=== PATIENT | female | born 1995 | race African-American/Black ===

== ENCOUNTER 2016-12-03 20:21 | Inpatient (IN) | payer OTHER ==
[~2016-12-03 20:21] MED LIST: ACTIVATED CHARCOAL 50 GM/240 ML BOTTLE ONE
[2016-12-03] MEDS ORDERED: ACTIVATED CHARCOAL 50 GM/240 ML BOTTLE PO STA (20:50)
[2016-12-03 21:07] LABS: Basophils % (A) 1 %; CH 30.5; CHCM 33.6; Eosinophils # (A) 0.1 k/uL (0-0.7); Eosinophils % (A) 2 %; HCT 40.9 % (34.0-46.0); HDW 2.36; HGB 13.5 gm/dL (11.4-16.0); Luc # (Auto) 0.18; Luc % (Auto) 3; Lymphocytes # (A) 2.3 k/uL (1.0-4.8); Lymphocytes % (A) 41 %; MCH 29.9 pg (25.0-35.0); MCHC 32.9 g/dL (31.0-37.0); MCV 90.8 fL (80.0-100.0); Mean Platelet Volume 6.3; Monocytes # (A) 0.5 k/uL (0-1.0); Monocytes % (A) 9 %; Neutrophils # (A) 2.6 k/uL (1.3-7.7); Neutrophils % (A) 45 %; RDW 12.7 % (11.5-15.5); WBC 5.7 k/uL (3.8-10.6); WBC (Perox) 5.35
[2016-12-03 21:14] LABS: ALT 24 U/L (9-52); AST 27 U/L (14-36); Acetaminophen <10.0 ug/mL; Alkaline Phosphatase 49 U/L (38-126); Anion Gap 13 mmol/L; Blood Urea Nitrogen 10 mg/dL (7-17); Calcium 9.4 mg/dL (8.4-10.2); Carbon Dioxide 26 mmol/L (22-30); Chloride 105 mmol/L (98-107); Glucose 98 mg/dL (74-99); Non-African American GFR(MDRD) >60 (>60 ml/min/1.73 sqM); Potassium 3.6 mmol/L (3.5-5.1); Salicylate <1.0 mg/dL; Sodium 144 mmol/L (137-145); Total Bilirubin 0.3 mg/dL (0.2-1.3); Total Protein 7.6 g/dL (6.3-8.2)
[2016-12-03 21:18] LABS: Alcohol 112 mg/dL
[2016-12-03 21:21] LABS: Appearance,Urine Clear (Clear); Bacteria,Urine Rare /hpf; Bilirubin,Urine Negative (Negative); Glucose,Urine (UA) Negative (Negative); Ketones,Urine Negative (Negative); Leukocyte Esterase,Urine Trace (Negative); Mucus,Urine Rare /hpf; Nitrite,Urine Negative (Negative); PH, Urine 6.5 (5.0-8.0); Particle Count 2428; Protein,Urine Negative (Negative); RBC,Urine 1 /hpf (0-5); Specific Gravity,Urine 1.011 (1.001-1.035); Squamous Epithelial Cell,Urine 2 /hpf (0-4); UA Billing (MACRO vs. MICRO) MICRO; Urobilinogen,Urine <2.0 mg/dL (<2.0); WBC,Urine 3 /hpf (0-5)
--- NOTE | 2016-12-03 21:27 | ED ---
Overdose HPI <Rogerio Knight - Last Filed: 12/04/16 01:46> - General Source: patient, RN notes reviewed Mode of arrival: wheelchair Limitations: no limitations <Yolande Villanueva - Last Filed: 12/04/16 02:44> - General Chief Complaint: Overdose Stated Complaint: Overdose Time Seen by Provider: 12/03/16 20:43 - History of Present Illness Initial Comments: 21-year-old female presents to the emergency department with a chief complaint of overdose. Patient states that she took Flexeril to try to kill herself. Patient does admit to suicidal ideation denies any homicidal ideation. Patient states she took this about 30 minutes prior to arrival to the emergency department. Patient states that she cannot currently having any symptoms. Patient states she is feeling somewhat sleepy. Patient does admit to a history of depression. Patient states that she is not currently having any other symptoms.Patient denies any recent fever, chills, shortness of breath, chest pain, back pain, abdominal pain, nausea vomiting, numbness or tingling, dysuria or hematuria, constipation or diarrhea, headaches or visual changes, or any other current symptoms. (Yolande Villanueva) - Related Data Home Medications Medication Instructions Recorded Confirmed Cyclobenzaprine [Flexeril] 10 mg PO DIRECTED 12/03/16 12/03/16 Mometasone Furoate [Mometasone 1 applic TOPICAL DAILY 12/03/16 12/03/16 Furoate 0.1%] Mupirocin Calcium 2% Cream 1 applic TOPICAL BID 12/03/16 12/03/16 [Bactroban 2% Cream] Allergies Allergy/AdvReac Type Severity Reaction Status Date / Time Penicillins Allergy Swelling Verified 12/03/16 20:55 red dye Allergy Hallucinati Verified 12/03/16 20:27 ons Review of Systems ROS Other: All systems not noted in ROS Statement are negative. <Rogerio Knight - Last Filed: 12/04/16 01:46> ROS Other: All systems not noted in ROS Statement are negative. <Yolande Villanueva - Last Filed: 12/04/16 02:44> ROS Statement: Those systems with pertinent positive or pertinent negative responses have been documented in the HPI. Past Medical History Past Medical History: No Reported History History of Any Multi-Drug Resistant Organisms: None Reported Past Surgical History: No Surgical Hx Reported Additional Past Anesthesia/Blood Transfusion Reaction / Comment(s): no transf. hx Past Psychological History: Anxiety, Bipolar, Depression Additional Psychological History / Comment(s): states anxiety but never on meds. Smoking Status: Current every day smoker Past Alcohol Use History: None Reported, Heavy Past Drug Use History: Marijuana Additional Drug Use History / Comment(s): last used 4 mos ago - Past Family History Father Family Medical History: No Reported History <Yolande Villanueva - Last Filed: 12/04/16 02:44> General Exam Limitations: no limitations General appearance: alert, in no apparent distress Head exam: Present: atraumatic, normocephalic, normal inspection Eye exam: Present: normal appearance, PERRL, EOMI. Absent: scleral icterus, conjunctival injection, periorbital swelling ENT exam: Present: normal exam, mucous membranes moist Neck exam: Present: normal inspection. Absent: tenderness, meningismus, lymphadenopathy Respiratory exam: Present: normal lung sounds bilaterally. Absent: respiratory distress, wheezes, rales, rhonchi, stridor Cardiovascular Exam: Present: normal rhythm, tachycardia, normal heart sounds. Absent: systolic murmur, diastolic murmur, rubs, gallop, clicks GI/Abdominal exam: Present: soft, normal bowel sounds. Absent: distended, tenderness, guarding, rebound, rigid Neurological exam: Present: alert, oriented X3, CN II-XII intact. Absent: motor sensory deficit Psychiatric exam: Present: normal affect, normal mood Skin exam: Present: warm, dry, intact, normal color. Absent: rash <Yolande Villanueva - Last Filed: 12/04/16 02:44> Medical Decision Making - Lab Data Result diagrams: 12/03/16 20:44 12/03/16 20:44 <Rogerio Knight - Last Filed: 12/04/16 01:46> - Lab Data Result diagrams: 12/03/16 20:44 12/03/16 20:44 <Yolande Villanueva - Last Filed: 12/04/16 02:44> - Medical Decision Making Patient reevaluated by myself, Dr. Knight. Positive clinical certificate completed. Patient admits to having suicidal thoughts and plan with attempt. Mental health services did see the patient who will admit. (Rogerio Knight) 21-year-old female presents to the emergency department with chief complaint of Flexeril overdose due to suicidal ideation. At this time the patient case was discussed with poison control they do inform us to give activated charcoal. They also inform us repeat EKG in 4 hours the initial EKG was discussed with him and they state that at this time the patient does appear to be stable. We did discuss that we should look for confusion sedation and agitation. We did discuss that we needed to do blood work to assess electrolytes and other possible medications overdosed on. At this time we are pending a repeat EKG in 4 hours. at this time the patient is reassessed she is alert and oriented. This time the patient is medically cleared acute medical emergency to be evaluated by psychiatry.at this time we will admit the patient for psychiatric care. (Yolande Villanueva) - Lab Data Lab Results 12/03/16 12/03/16 12/03/16 Range/Units 20:44 20:44 21:12 WBC 5.7 (3.8-10.6) k/uL RBC 4.50 (3.80-5.40) m/uL Hgb 13.5 (11.4-16.0) gm/dL Hct 40.9 (34.0-46.0) % MCV 90.8 (80.0-100.0) fL MCH 29.9 (25.0-35.0) pg MCHC 32.9 (31.0-37.0) g/dL RDW 12.7 (11.5-15.5) % Plt Count 351 (150-450) k/uL Neutrophils % 45 % Lymphocytes % 41 % Monocytes % 9 % Eosinophils % 2 % Basophils % 1 % Neutrophils # 2.6 (1.3-7.7) k/uL Lymphocytes # 2.3 (1.0-4.8) k/uL Monocytes # 0.5 (0-1.0) k/uL Eosinophils # 0.1 (0-0.7) k/uL Basophils # 0.0 (0-0.2) k/uL Sodium 144 (137-145) mmol/L Potassium 3.6 (3.5-5.1) mmol/L Chloride 105 (98-107) mmol/L Carbon Dioxide 26 (22-30) mmol/L Anion Gap 13 mmol/L BUN 10 (7-17) mg/dL Creatinine 0.70 (0.52-1.04) mg/dL Est GFR (MDRD) Af Amer >60 (>60 ml/min/1.73 sqM) Est GFR (MDRD) Non-Af >60 (>60 ml/min/1.73 sqM) Glucose 98 (74-99) mg/dL Calcium 9.4 (8.4-10.2) mg/dL Total Bilirubin 0.3 (0.2-1.3) mg/dL AST 27 (14-36) U/L ALT 24 (9-52) U/L Alkaline Phosphatase 49 (38-126) U/L Total Protein 7.6 (6.3-8.2) g/dL Albumin 4.3 (3.5-5.0) g/dL Urine Color Yellow Urine Appearance Clear (Clear) Urine pH 6.5 (5.0-8.0) Ur Specific [place] 1.011 (1.001-1.035) Urine Protein Negative (Negative) Urine Glucose (UA) Negative (Negative) Urine Ketones Negative (Negative) Urine Blood Moderate H (Negative) Urine Nitrite Negative (Negative) Urine Bilirubin Negative (Negative) Urine Urobilinogen <2.0 (<2.0) mg/dL Ur Leukocyte Esterase Trace H (Negative) Urine RBC 1 (0-5) /hpf Urine WBC 3 (0-5) /hpf Ur Squamous Epith Cells 2 (0-4) /hpf Urine Bacteria Rare H (None) /hpf Urine Mucus Rare H (None) /hpf Urine HCG, Qual (Not Detectd) Salicylates <1.0 mg/dL Urine Opiates Screen Not Detected (NotDetected) Ur Oxycodone Screen Not Detected (NotDetected) Urine Methadone Screen Not Detected (NotDetected) Ur Propoxyphene Screen Not Detected (NotDetected) Acetaminophen <10.0 ug/mL Ur Barbiturates Screen Not Detected (NotDetected) U Tricyclic Antidepress Not Detected (NotDetected) Ur Phencyclidine Scrn Not Detected (NotDetected) Ur Amphetamines Screen Not Detected (NotDetected) U Methamphetamines Scrn Not Detected (NotDetected) U Benzodiazepines Scrn Detected H (NotDetected) Urine Cocaine Screen Not Detected (NotDetected) U Marijuana (THC) Screen Detected H (NotDetected) Serum Alcohol 112 mg/dL 12/03/16 Range/Units 21:12 WBC (3.8-10.6) k/uL RBC (3.80-5.40) m/uL Hgb (11.4-16.0) gm/dL Hct (34.0-46.0) % MCV (80.0-100.0) fL MCH (25.0-35.0) pg MCHC (31.0-37.0) g/dL RDW (11.5-15.5) % Plt Count (150-450) k/uL Neutrophils % % Lymphocytes % % Monocytes % % Eosinophils % % Basophils % % Neutrophils # (1.3-7.7) k/uL Lymphocytes # (1.0-4.8) k/uL Monocytes # (0-1.0) k/uL Eosinophils # (0-0.7) k/uL Basophils # (0-0.2) k/uL Sodium (137-145) mmol/L Potassium (3.5-5.1) mmol/L Chloride (98-107) mmol/L Carbon Dioxide (22-30) mmol/L Anion Gap mmol/L BUN (7-17) mg/dL Creatinine (0.52-1.04) mg/dL Est GFR (MDRD) Af Amer (>60 ml/min/1.73 sqM) Est GFR (MDRD) Non-Af (>60 ml/min/1.73 sqM) Glucose (74-99) mg/dL Calcium (8.4-10.2) mg/dL Total Bilirubin (0.2-1.3) mg/dL AST (14-36) U/L ALT (9-52) U/L Alkaline Phosphatase (38-126) U/L Total Protein (6.3-8.2) g/dL Albumin (3.5-5.0) g/dL Urine Color Urine Appearance (Clear) Urine pH (5.0-8.0) Ur Specific [place] (1.001-1.035) Urine Protein (Negative) Urine Glucose (UA) (Negative) Urine Ketones (Negative) Urine Blood (Negative) Urine Nitrite (Negative) Urine Bilirubin (Negative) Urine Urobilinogen (<2.0) mg/dL Ur Leukocyte Esterase (Negative) Urine RBC (0-5) /hpf Urine WBC (0-5) /hpf Ur Squamous Epith Cells (0-4) /hpf Urine Bacteria (None) /hpf Urine Mucus (None) /hpf Urine HCG, Qual Not Detected (Not Detectd) Salicylates mg/dL Urine Opiates Screen (NotDetected) Ur Oxycodone Screen (NotDetected) Urine Methadone Screen (NotDetected) Ur Propoxyphene Screen (NotDetected) Acetaminophen ug/mL Ur Barbiturates Screen (NotDetected) U Tricyclic Antidepress (NotDetected) Ur Phencyclidine Scrn (NotDetected) Ur Amphetamines Screen (NotDetected) U Methamphetamines Scrn (NotDetected) U Benzodiazepines Scrn (NotDetected) Urine Cocaine Screen (NotDetected) U Marijuana (THC) Screen (NotDetected) Serum Alcohol mg/dL 12/03/16 21:26 sinus tachycardia 102 bpm, normal axis, no atopy, no S-T depressions or elevations, 12/04/16 00:40 normal sinus rhythm 84 bpm, normal axis, no atopy, no S-T depressions or elevations, (Yolande Villanueva) Disposition <Rogerio Knight - Last Filed: 12/04/16 01:46> Time of Disposition: 02:44 <Yolande Villanueva - Last Filed: 12/04/16 02:44> Clinical Impression: Suicide attempt by drug ingestion Disposition: TRANSFER TO PSYCH HOSP/UNIT Referrals: None,Stated [Primary Care Provider] - 1-2 days
[2016-12-04] MEDS ORDERED: LORazepam 1 MG TAB PO PRN (03:09)
[2016-12-04] MEDS ORDERED: MAG HYDROX/AL HYDROX/SIMETH 30 ML CUP PO PRN (03:09)
[2016-12-04] MEDS ORDERED: MAGNESIUM HYDROXIDE 2,400 MG/10 ML CUP PO PRN (03:09)
[2016-12-04] MEDS ORDERED: ACETAMINOPHEN TAB 325 MG TAB PO PRN (03:09)
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
[2016-12-04 10:52] VITALS: BMI 19.3
[2016-12-04] MEDS: SERTRALINE 50 MG TAB PO SCH (21:07)
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
--- NOTE | 2016-12-05 11:15 | CONS ---
DATE OF CONSULTATION: Chief complaint is overdose. REASON FOR CONSULTATION: Medical management of overdose, abnormal EKG and acute alcohol intoxication. HISTORY OF ILLNESS: Ms. Moses is a 21-year-old female with ( ) history, admitted to the hospital with chief complaint of overdose. Apparently patient took Flexeril to try to kill herself. Patient does admit to suicidal ideation, denied any homicidal ideation at that time. Patient does have a history of depression and possible bipolar disorder. Patient otherwise was able to vomit most of the pills in the ER and currently awake, alert, and oriented x3. No complaints of chest pain or short of breath. No nausea or vomiting, abdominal pain. Patient was also found to have T-wave inversions in the EKG in the leads V3, V4 and V5, which are normalized at this time. Patient does not have history of coronary artery disease in the past. REVIEW OF SYSTEMS: CONSTITUTIONAL: No fever. No chills. No weakness. No weight loss. RESPIRATORY: No cough or sputum production. CARDIOVASCULAR: No chest pain. No short of breath. No leg swelling. ABDOMEN: No nausea, vomiting, abdominal pain. No diarrhea. GENITOURINARY: No dysuria. GENITOURINARY: Negative. PSYCHIATRY: ( ). SKIN: Negative. MUSCULOSKELETAL: Negative. All other 14-point review of systems negative except as above. PAST MEDICAL HISTORY: None. PAST SURGICAL HISTORY: None. PSYCHOSOCIAL HISTORY: Anxiety, bipolar and depression, but no other medication. SOCIAL HISTORY: Apparently an everyday smoker; smokes about 1/2 pack to 1 pack per day. Patient does drink alcohol, sometimes on an everyday basis, history of marijuana use, last used 4 months ago. FAMILY HISTORY: Father no reported history and mother noted to have a history of hypertension, diabetes mellitus, family history of heart disease. ALLERGIES: PENICILLIN and DYE. Home medications include: 1. Flexeril. 2. Mometasone. 3. Mupirocin cream. PHYSICAL EXAMINATION: A 21-year-old female, lying in the bed. Awake, alert, oriented x3. Appears to be in no apparent distress. VITALS: Blood pressure 122/82, pulse is 138, respiration 17, temperature afebrile, pulse ox is saturating well on room air. HEENT: Atraumatic, normocephalic. Neck is supple. No JVD. CVS EXAM: S1, S2 heard. No murmurs, no gallop. Normal sinus rhythm. No leg swelling. LUNGS: Bilateral air entry is present. No wheezing. No crackles. Nonlabored breathing. Abdomen is soft, nontender, bowel sounds present. APPLICATION DEVELOPER MANAGER: Awake, alert, oriented x3. No focal deficit. EXTREMITIES: No edema. Pulses palpable bilaterally. No clubbing or cyanosis. PSYCHIATRIC: Cooperative. ( ) LABORATORY DATA: WBC 5.7, hemoglobin 13.5, platelets 351. Sodium 144, potassium 3.6, chloride 105, bicarb is 26. BUN 10, creatinine 0.7, albumin 4.3. ( ) negative for infection. UDS is positive for benzodiazepines and marijuana. Serum alcohol level is 112, ( ) not detected. EKG showed sinus tachycardia and T-wave abnormality with inversions of V3, V4 and V5. IMPRESSION: 1. Acute suicide attempt with Flexeril ingestion about 20 tablets. 2. Acute alcohol intoxication with alcohol level is 112. 3. Abnormal EKG with T-wave inversions, normalizing now. 4. Marijuana use. 5. Depression and bipolar disorder, not on any medication at home. 6. Sinus tachycardia. DISCUSSION AND PLAN: The patient will be continued on Ativan p.r.n. for agitation, anxiety and monitor for alcohol withdrawal symptoms. Continue with the antidepressants as per psychiatry recommendations. Patient had an serial EKG showed normalization of T-wave inversions. Patient does not have any complaint of chest pain. No history of coronary artery disease. No complaints of exertional short of breath or chest pain. Patient does not want any further cardiac work-up. Will continue to monitor for alcohol withdrawal symptoms. Will check TSH and ( ) and follow up closely. Further recommendations based on the clinical course.
[2016-12-05 15:26] VITALS: RESP 16
[2016-12-05 17:38] LABS: Appearance,Urine Cloudy (Clear); Bilirubin,Urine Negative (Negative); Glucose,Urine (UA) Negative (Negative); Ketones,Urine Negative (Negative); Leukocyte Esterase,Urine Large (Negative); Mucus,Urine Few /hpf; Nitrite,Urine Negative (Negative); Particle Count 8867; Protein,Urine Trace (Negative); RBC,Urine 4 /hpf (0-5); Specific Gravity,Urine 1.022 (1.001-1.035); Squamous Epithelial Cell,Urine 8 /hpf (0-4); UA Billing (MACRO vs. MICRO) MICRO; Urobilinogen,Urine <2.0 mg/dL (<2.0); WBC,Urine 15 /hpf (0-5)
[2016-12-05] MEDS: SERTRALINE 50 MG TAB PO SCH (20:53)
[2016-12-06 06:55] VITALS: TEMP 98.2
--- NOTE | 2016-12-06 09:33 | P.PN ---
Progress Note - Text Interval history: The patient is found in the library she follows me to an interview room. She states her mood is good. She continues to try to be optimistic. She reports sleep has been stable appetite stable she has been attending groups. A second urinalysis was ordered which appeared more abnormal and may indicate a urinary tract infection. She states she was treated for the same 2 weeks ago. She is endorsing no hopelessness thinking she reports having no suicidal ideation intent or plan. She did have some questions related to her Zoloft and those were addressed. Mental status exam: The patient is a thin female appearing her stated age. She is casually dressed in her own clothing hygiene grooming are good. Affect is bright she reports her mood is good. She seated calmly in the chair. She is reporting no suicidal or homicidal ideation intent or plan and she is endorsing no auditory or visual hallucinations or specific delusions. There is no evidence of psychosis there is no evidence of hypomanic or manic symptoms. Insight and judgment improving. Cognitively she remains fully oriented and grossly intact. She demonstrates no verbal or physical aggressiveness. Plan: The patient will continue on the Zoloft we will continue to monitor her for safety and encourage her participation in the milieu. We will address the abnormal urinalysis results. We will continue to monitor her for safety.
[2016-12-06] MEDS: LEVOFLOXACIN 500 MG TAB PO SCH (13:59)
[2016-12-06] MEDS: SERTRALINE 50 MG TAB PO SCH (21:00)
[2016-12-07 06:45] VITALS: BP 105/64; PULSE 73
[2016-12-07] MEDS: LEVOFLOXACIN 500 MG TAB PO SCH (09:39)
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
[2016-12-08] MEDS ORDERED: SERTRALINE 50 MG TAB PO SCH (09:00)
== END 2016-12-07 13:39 | disposition home or self-care (01) | DRG 881 ==
LOC: EC 20:21 → 3MHU 12-04 02:38
PROVIDERS: ADMIT Psychiatry & Neurology Psychiatry; ATTEND Psychiatry & Neurology Psychiatry
DX: F32.9 Major depressive disorder, single episode, unspecified (principal); F41.9 Anxiety disorder, unspecified; F10.129 Alcohol abuse with intoxication, unspecified; F12.90 Cannabis use, unspecified, uncomplicated; F17.200 Nicotine dependence, unspecified, uncomplicated; Z88.0 Allergy status to penicillin; Z91.5 Personal history of self-harm; Z56.5 Uncongenial work environment
CPT/HCPCS: 36415; 80053; 80306; 80320; 81001; 81025; 82075; 83520; 84443; 84484; 85025; 87086; 93005; 99285

== ENCOUNTER 2018-07-21 11:26 | Emergency (ER) | payer OTHER ==
--- NOTE | 2018-07-21 12:14 | ED ---
General Adult HPI - General Chief complaint: Psychiatric Symptoms Stated complaint: mental health Time Seen by Provider: 07/21/18 11:57 Source: patient, RN notes reviewed Mode of arrival: ambulatory Limitations: no limitations - History of Present Illness Initial comments: 23-year-old female presents with chief complaint of anxiety, depression, and suicidal ideation. Patient states she has been dealing with anxiety and depression for several years. She was previously prescribed Xanax which didn't improve her symptoms. She has been drinking approximately half a pint of liquor daily to self medicate. She does have suicidal ideation with plans to shoot herself. No suicide attempt. Patient is otherwise healthy. - Related Data Previous Rx's Medication Instructions Recorded ALPRAZolam [Xanax] 0.5 mg PO BID PRN #6 tablet 07/21/18 Allergies Allergy/AdvReac Type Severity Reaction Status Date / Time Penicillins Allergy Rash/Hives Verified 07/21/18 12:03 red dye Allergy Hallucinati Verified 07/21/18 12:03 ons Review of Systems ROS Statement: Those systems with pertinent positive or pertinent negative responses have been documented in the HPI. ROS Other: All systems not noted in ROS Statement are negative. Past Medical History Past Medical History: No Reported History History of Any Multi-Drug Resistant Organisms: None Reported Past Surgical History: No Surgical Hx Reported Additional Past Anesthesia/Blood Transfusion Reaction / Comment(s): no transf. hx Past Psychological History: Anxiety, Bipolar, Depression Smoking Status: Current every day smoker Past Alcohol Use History: Heavy Past Drug Use History: None Reported - Past Family History Father Family Medical History: No Reported History General Exam Limitations: no limitations General appearance: alert, in no apparent distress, appears intoxicated Head exam: Present: atraumatic, normocephalic Eye exam: Present: normal appearance, PERRL ENT exam: Present: normal exam Neck exam: Present: normal inspection. Absent: tenderness, meningismus Respiratory exam: Present: normal lung sounds bilaterally. Absent: respiratory distress, wheezes Cardiovascular Exam: Present: regular rate, normal rhythm GI/Abdominal exam: Present: soft. Absent: distended, tenderness Extremities exam: Present: normal inspection Neurological exam: Present: alert, oriented X3 Psychiatric exam: Present: depressed, anxious, suicidal ideation Skin exam: Present: warm, dry, intact. Absent: cyanosis, diaphoretic Course Vital Signs 07/21/18 11:47 Temperature 98 F Pulse Rate 118 H Respiratory 20 Rate Blood Pressure 123/86 O2 Sat by Pulse 96 Oximetry Medical Decision Making - Medical Decision Making 23-year-old female presenting with anxiety depression and suicidal ideation. Patient is observed in the emergency department awaiting clinical sobriety, she was medically cleared and evaluated by EPS. EPS does recommend discharge at this time. Patient contracts safety. She has referred with [facility]. She will be given a short supply of Xanax for both anxiety and alcohol history. Please follow up with [facility] tomorrow as scheduled. Return with worsening or changing symptoms. - Lab Data Lab Results 07/21/18 Range/Units 12:30 Urine Opiates Screen Not Detected (NotDetected) Ur Oxycodone Screen Not Detected (NotDetected) Urine Methadone Screen Not Detected (NotDetected) Ur Propoxyphene Screen Not Detected (NotDetected) Ur Barbiturates Screen Not Detected (NotDetected) U Tricyclic Antidepress Not Detected (NotDetected) Ur Phencyclidine Scrn Not Detected (NotDetected) Ur Amphetamines Screen Not Detected (NotDetected) U Methamphetamines Scrn Not Detected (NotDetected) U Benzodiazepines Scrn Detected H (NotDetected) Urine Cocaine Screen Not Detected (NotDetected) U Marijuana (THC) Screen Not Detected (NotDetected) Disposition Clinical Impression: Acute anxiety, Depression Disposition: HOME SELF-CARE Condition: Fair Instructions: Depression (ED), Anxiety (ED) Additional Instructions: Please follow up with [facility] tomorrow. Prescriptions: ALPRAZolam [Xanax] 0.5 mg PO BID PRN #6 tablet PRN Reason: Anxiety Is patient prescribed a controlled substance at d/c from ED?: No Referrals: None,Stated [Primary Care Provider] - 1-2 days Ray Alston MD [REFERRING] - 1-2 days Time of Disposition: 17:43
[2018-07-21 13:06] LABS: Amphetamine Screen,Urine Not Detected (NotDetected); Barbiturate Screen,Urine Not Detected (NotDetected); Benzodiazepines Screen,Urine Detected (NotDetected); Cocaine Screen,Urine Not Detected (NotDetected); Methadone Screen, Urine Not Detected (NotDetected); Opiate Screen,Urine Not Detected (NotDetected); Oxycodone Screen, Urine Not Detected (NotDetected); Phencyclidine Screen,Urine Not Detected (NotDetected); Tricyclic Antidepressant,Urine Not Detected (NotDetected); Urn Cannabinoid Scrn Not Detected (NotDetected)
[2018-07-21 17:51] VITALS: BP 118/80; PULSE 98; RESP 18; TEMP 98.2
== END 2018-07-21 18:03 | disposition home or self-care (01) ==
LOC: EC 11:26
DX: F41.9 Anxiety disorder, unspecified (principal); F32.9 Major depressive disorder, single episode, unspecified; F17.200 Nicotine dependence, unspecified, uncomplicated; Z88.0 Allergy status to penicillin; Z91.048 Other nonmedicinal substance allergy status
CPT/HCPCS: 80306; 82075; 99285

== ENCOUNTER 2019-02-04 22:38 | Emergency (ER) | payer OTHER ==
[2019-02-04] MEDS ORDERED: LIDOCAINE 5% PATCH TOPICAL STA (23:36)
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
[2019-02-05 00:08] LABS: Amphetamine Screen,Urine Not Detected (NotDetected); Barbiturate Screen,Urine Not Detected (NotDetected); Benzodiazepines Screen,Urine Detected (NotDetected); Cocaine Screen,Urine Not Detected (NotDetected); Methadone Screen, Urine Not Detected (NotDetected); Opiate Screen,Urine Not Detected (NotDetected); Oxycodone Screen, Urine Not Detected (NotDetected); Phencyclidine Screen,Urine Not Detected (NotDetected); Tricyclic Antidepressant,Urine Not Detected (NotDetected); Urn Cannabinoid Scrn Not Detected (NotDetected)
[2019-02-05 00:50] LABS: Basophils % (A) 0 %; Eosinophils # (A) 0.1 k/uL (0-0.7); Eosinophils % (A) 2 %; HCT 39.5 % (34.0-46.0); HGB 12.8 gm/dL (11.4-16.0); Lymphocytes % (A) 29 %; MCH 30.1 pg (25.0-35.0); MCHC 32.4 g/dL (31.0-37.0); MCV 92.9 fL (80.0-100.0); Mean Platelet Volume 6.5; Monocytes # (A) 0.5 k/uL (0-1.0); Monocytes % (A) 8 %; Neutrophils % (A) 58 %; Platelet Count 315 k/uL (150-450); RBC 4.25 m/uL (3.80-5.40); WBC 6.9 k/uL (3.8-10.6)
[2019-02-05 00:59] LABS: African American GFR (CKD) >90 (>60 ml/min/1.73 sqM); Anion Gap 11 mmol/L; Blood Urea Nitrogen 10 mg/dL (7-17); Calcium 9.7 mg/dL (8.4-10.2); Carbon Dioxide 25 mmol/L (22-30); Chloride 109 mmol/L (98-107); Glucose 108 mg/dL (74-99); Potassium 3.6 mmol/L (3.5-5.1); Sodium 145 mmol/L (137-145)
[2019-02-05 07:33] VITALS: RESP 18
[2019-02-05] MEDS ORDERED: LORazepam 1 MG TAB PO STA ×2 (07:37→15:53)
[2019-02-05 16:23] VITALS: BP 125/89; PULSE 93; TEMP 98
== END 2019-02-05 16:43 ==
LOC: EC 22:38
DX: R45.851 Suicidal ideations (principal); F41.9 Anxiety disorder, unspecified; R07.89 Other chest pain; F31.9 Bipolar disorder, unspecified; F17.200 Nicotine dependence, unspecified, uncomplicated; Z79.899 Other long term (current) drug therapy; Z88.0 Allergy status to penicillin; Z91.09 Other allergy status, other than to drugs and biological substances; Z53.29 Procedure and treatment not carried out because of patient's decision for other reasons
CPT/HCPCS: 36415; 80048; 80306; 81025; 82075; 84484; 85025; 93005; 99285

== ENCOUNTER 2019-03-28 20:07 | Emergency (ER) | payer OTHER ==
[2019-03-28 21:48] LABS: Amphetamine Screen,Urine Not Detected (NotDetected); Barbiturate Screen,Urine Not Detected (NotDetected); Benzodiazepines Screen,Urine Detected (NotDetected); Cocaine Screen,Urine Not Detected (NotDetected); Methadone Screen, Urine Not Detected (NotDetected); Opiate Screen,Urine Not Detected (NotDetected); Oxycodone Screen, Urine Not Detected (NotDetected); Phencyclidine Screen,Urine Not Detected (NotDetected); Tricyclic Antidepressant,Urine Not Detected (NotDetected); Urn Cannabinoid Scrn Not Detected (NotDetected)
--- NOTE | 2019-03-29 02:39 | ED ---
Psych HPI - General Chief Complaint: Psychiatric Symptoms Stated Complaint: Mental Health Time Seen by Provider: 03/28/19 21:01 Source: patient Mode of arrival: ambulatory - History of Present Illness Initial Comments: This 23-year-old woman with history of mood disorder and previous suicidal ideation. She presents with the complaint that she feels she needs to be admitted in the hospital because her mood has worsened over the past 2 weeks and now she is having persistent thoughts of harming herself. The patient states she has not acted on this yet but she is concerned she may. Currently states that she is not receiving any outpatient treatment for mood disorders. MD Complaint: suicidal ideation, feels depressed Onset/Timin -: week(s) Associated Psychiatric Symptoms: depression, suicidal ideation History of same: Yes Quality: getting worse Improves With: none Worsens With: none Associated Symptoms: denies other symptoms - Related Data Home Medications Medication Instructions Recorded Confirmed No Known Home Medications 03/28/19 03/28/19 Allergies Allergy/AdvReac Type Severity Reaction Status Date / Time Penicillins Allergy Rash/Hives Verified 03/28/19 21:18 red dye Allergy Hallucinati Verified 03/28/19 21:18 ons Review of Systems ROS Statement: Those systems with pertinent positive or pertinent negative responses have been documented in the HPI. ROS Other: All systems not noted in ROS Statement are negative. Constitutional: Denies: fever Respiratory: Denies: cough, dyspnea Cardiovascular: Denies: chest pain, palpitations Gastrointestinal: Denies: abdominal pain, vomiting, diarrhea Genitourinary: Denies: dysuria, hematuria, abnormal menses Musculoskeletal: Denies: back pain Skin: Denies: rash Neurological: Denies: headache, weakness, numbness Past Medical History Past Medical History: No Reported History History of Any Multi-Drug Resistant Organisms: None Reported Past Surgical History: No Surgical Hx Reported Additional Past Anesthesia/Blood Transfusion Reaction / Comment(s): no transf. hx Past Psychological History: Anxiety, Bipolar, Depression Smoking Status: Current every day smoker Past Alcohol Use History: Heavy Past Drug Use History: None Reported - Past Family History Father Family Medical History: No Reported History General Exam Limitations: no limitations General appearance: alert, in no apparent distress Head exam: Present: atraumatic, normocephalic Eye exam: Present: normal appearance Respiratory exam: Present: normal lung sounds bilaterally. Absent: respiratory distress, wheezes, rales, rhonchi, stridor Cardiovascular Exam: Present: regular rate, normal rhythm, normal heart sounds. Absent: systolic murmur, diastolic murmur, rubs, gallop GI/Abdominal exam: Present: soft. Absent: distended, tenderness, guarding, rebound, mass Extremities exam: Present: normal inspection, normal capillary refill. Absent: pedal edema, calf tenderness Back exam: Present: normal inspection. Absent: CVA tenderness (R), CVA tenderness (L) Neurological exam: Present: alert Psychiatric exam: Present: depressed, flat affect, suicidal ideation. Absent: agitated, anxious, manic, homicidal ideation Skin exam: Present: warm, dry, intact, normal color. Absent: rash Course Vital Signs 03/28/19 03/28/19 03/29/19 20:16 22:20 07:13 Temperature 98.5 F 98.9 F Pulse Rate 122 H 100 76 Respiratory 20 18 18 Rate Blood Pressure 119/86 118/72 123/70 O2 Sat by Pulse 99 98 99 Oximetry 03/29/19 09:40 Temperature 97.8 F Pulse Rate 90 Respiratory 16 Rate Blood Pressure 117/93 O2 Sat by Pulse 98 Oximetry Medical Decision Making - Lab Data Result diagrams: 03/29/19 05:15 03/29/19 05:15 Lab Results 03/28/19 03/28/19 03/28/19 Range/Units 21:10 21:10 21:10 WBC (3.8-10.6) k/uL RBC (3.80-5.40) m/uL Hgb (11.4-16.0) gm/dL Hct (34.0-46.0) % MCV (80.0-100.0) fL MCH (25.0-35.0) pg MCHC (31.0-37.0) g/dL RDW (11.5-15.5) % Plt Count (150-450) k/uL Neutrophils % % Lymphocytes % % Monocytes % % Eosinophils % % Basophils % % Neutrophils # (1.3-7.7) k/uL Lymphocytes # (1.0-4.8) k/uL Monocytes # (0-1.0) k/uL Eosinophils # (0-0.7) k/uL Basophils # (0-0.2) k/uL Sodium (137-145) mmol/L Potassium (3.5-5.1) mmol/L Chloride (98-107) mmol/L Carbon Dioxide (22-30) mmol/L Anion Gap mmol/L BUN (7-17) mg/dL Creatinine (0.52-1.04) mg/dL Est GFR (CKD-EPI)AfAm (>60 ml/min/1.73 sqM) Est GFR (CKD-EPI)NonAf (>60 ml/min/1.73 sqM) Glucose (74-99) mg/dL Calcium (8.4-10.2) mg/dL Total Bilirubin (0.2-1.3) mg/dL AST (14-36) U/L ALT (9-52) U/L Alkaline Phosphatase (38-126) U/L Total Protein (6.3-8.2) g/dL Albumin (3.5-5.0) g/dL Urine Color Yellow Urine Appearance Cloudy H (Clear) Urine pH 7.5 (5.0-8.0) Ur Specific [place] 1.028 (1.001-1.035) Urine Protein 1+ H (Negative) Urine Glucose (UA) Negative (Negative) Urine Ketones Trace H (Negative) Urine Blood Negative (Negative) Urine Nitrite Negative (Negative) Urine Bilirubin Negative (Negative) Urine Urobilinogen <2.0 (<2.0) mg/dL Ur Leukocyte Esterase Moderate H (Negative) Urine RBC 2 (0-5) /hpf Urine WBC 23 H (0-5) /hpf Ur Squamous Epith Cells 41 H (0-4) /hpf Urine Bacteria Rare H (None) /hpf Urine Mucus Few H (None) /hpf Urine HCG, Qual Not Detected (Not Detectd) Urine Opiates Screen Not Detected (NotDetected) Ur Oxycodone Screen Not Detected (NotDetected) Urine Methadone Screen Not Detected (NotDetected) Ur Propoxyphene Screen Not Detected (NotDetected) Ur Barbiturates Screen Not Detected (NotDetected) U Tricyclic Antidepress Not Detected (NotDetected) Ur Phencyclidine Scrn Not Detected (NotDetected) Ur Amphetamines Screen Not Detected (NotDetected) U Methamphetamines Scrn Not Detected (NotDetected) U Benzodiazepines Scrn Detected H (NotDetected) Urine Cocaine Screen Not Detected (NotDetected) U Marijuana (THC) Screen Not Detected (NotDetected) 03/29/19 03/29/19 Range/Units 05:15 05:15 WBC 7.3 (3.8-10.6) k/uL RBC 4.23 (3.80-5.40) m/uL Hgb 12.8 (11.4-16.0) gm/dL Hct 38.3 (34.0-46.0) % MCV 90.5 (80.0-100.0) fL MCH 30.2 (25.0-35.0) pg MCHC 33.4 (31.0-37.0) g/dL RDW 12.9 (11.5-15.5) % Plt Count 328 (150-450) k/uL Neutrophils % 64 % Lymphocytes % 24 % Monocytes % 9 % Eosinophils % 1 % Basophils % 1 % Neutrophils # 4.6 (1.3-7.7) k/uL Lymphocytes # 1.7 (1.0-4.8) k/uL Monocytes # 0.7 (0-1.0) k/uL Eosinophils # 0.1 (0-0.7) k/uL Basophils # 0.1 (0-0.2) k/uL Sodium 138 (137-145) mmol/L Potassium 4.0 (3.5-5.1) mmol/L Chloride 103 (98-107) mmol/L Carbon Dioxide 24 (22-30) mmol/L Anion Gap 11 mmol/L BUN 10 (7-17) mg/dL Creatinine 0.51 L (0.52-1.04) mg/dL Est GFR (CKD-EPI)AfAm >90 (>60 ml/min/1.73 sqM) Est GFR (CKD-EPI)NonAf >90 (>60 ml/min/1.73 sqM) Glucose 81 (74-99) mg/dL Calcium 9.3 (8.4-10.2) mg/dL Total Bilirubin 0.4 (0.2-1.3) mg/dL AST 31 (14-36) U/L ALT 22 (9-52) U/L Alkaline Phosphatase 59 (38-126) U/L Total Protein 7.5 (6.3-8.2) g/dL Albumin 4.4 (3.5-5.0) g/dL Urine Color Urine Appearance (Clear) Urine pH (5.0-8.0) Ur Specific [place] (1.001-1.035) Urine Protein (Negative) Urine Glucose (UA) (Negative) Urine Ketones (Negative) Urine Blood (Negative) Urine Nitrite (Negative) Urine Bilirubin (Negative) Urine Urobilinogen (<2.0) mg/dL Ur Leukocyte Esterase (Negative) Urine RBC (0-5) /hpf Urine WBC (0-5) /hpf Ur Squamous Epith Cells (0-4) /hpf Urine Bacteria (None) /hpf Urine Mucus (None) /hpf Urine HCG, Qual (Not Detectd) Urine Opiates Screen (NotDetected) Ur Oxycodone Screen (NotDetected) Urine Methadone Screen (NotDetected) Ur Propoxyphene Screen (NotDetected) Ur Barbiturates Screen (NotDetected) U Tricyclic Antidepress (NotDetected) Ur Phencyclidine Scrn (NotDetected) Ur Amphetamines Screen (NotDetected) U Methamphetamines Scrn (NotDetected) U Benzodiazepines Scrn (NotDetected) Urine Cocaine Screen (NotDetected) U Marijuana (THC) Screen (NotDetected) Disposition Clinical Impression: Mood disorder Disposition: TRANSFER TO PSYCH HOSP/UNIT Condition: Fair Is patient prescribed a controlled substance at d/c from ED?: No Referrals: None,Stated [Primary Care Provider] - 1-2 days
[2019-03-29] MEDS ORDERED: LORazepam 1 MG TAB PO STA ×2 (03:01→08:45)
[2019-03-29] MEDS ORDERED: LORazepam 2 MG/ML INJ IM STA (03:02)
[2019-03-29 05:21] LABS: Appearance,Urine Cloudy (Clear); Bacteria,Urine Rare /hpf; Bilirubin,Urine Negative (Negative); Blood,Urine Negative (Negative); Color,Urine Yellow; Glucose,Urine (UA) Negative (Negative); Ketones,Urine Trace (Negative); Leukocyte Esterase,Urine Moderate (Negative); Mucus,Urine Few /hpf; Nitrite,Urine Negative (Negative); PH, Urine 7.5 (5.0-8.0); Protein,Urine 1+ (Negative); RBC,Urine 2 /hpf (0-5); Specific Gravity,Urine 1.028 (1.001-1.035); Squamous Epithelial Cell,Urine 41 /hpf (0-4); Urobilinogen,Urine <2.0 mg/dL (<2.0); WBC,Urine 23 /hpf (0-5)
[2019-03-29 05:33] LABS: Basophils # (A) 0.1 k/uL (0-0.2); Basophils % (A) 1 %; Eosinophils # (A) 0.1 k/uL (0-0.7); Eosinophils % (A) 1 %; HCT 38.3 % (34.0-46.0); HGB 12.8 gm/dL (11.4-16.0); Lymphocytes # (A) 1.7 k/uL (1.0-4.8); Lymphocytes % (A) 24 %; MCH 30.2 pg (25.0-35.0); MCHC 33.4 g/dL (31.0-37.0); MCV 90.5 fL (80.0-100.0); Mean Platelet Volume 6.4; Monocytes # (A) 0.7 k/uL (0-1.0); Monocytes % (A) 9 %; Neutrophils # (A) 4.6 k/uL (1.3-7.7); Neutrophils % (A) 64 %; Platelet Count 328 k/uL (150-450); RBC 4.23 m/uL (3.80-5.40); RDW 12.9 % (11.5-15.5); WBC 7.3 k/uL (3.8-10.6)
[2019-03-29 05:43] LABS: ALT 22 U/L (9-52); AST 31 U/L (14-36); African American GFR (CKD) >90 (>60 ml/min/1.73 sqM); Albumin 4.4 g/dL (3.5-5.0); Alkaline Phosphatase 59 U/L (38-126); Anion Gap 11 mmol/L; Blood Urea Nitrogen 10 mg/dL (7-17); Calcium 9.3 mg/dL (8.4-10.2); Carbon Dioxide 24 mmol/L (22-30); Chloride 103 mmol/L (98-107); Glucose 81 mg/dL (74-99); Sodium 138 mmol/L (137-145); Total Bilirubin 0.4 mg/dL (0.2-1.3); Total Protein 7.5 g/dL (6.3-8.2)
[2019-03-29 09:47] VITALS: BP 117/93; PULSE 90; RESP 16; TEMP 97.8
--- NOTE | 2019-03-31 01:42 | CDI ---
Documentation Clarification OP Dear Scooter BENITO MD Please provide clinical impression. Thank you, Nitish [facility] Advanced Practice Nurse If you have any questions, please contact Yield Loss Inspector at [phone] [facility]
== END 2019-03-29 09:47 ==
LOC: EC 20:07
DX: F32.9 Major depressive disorder, single episode, unspecified (principal); F17.200 Nicotine dependence, unspecified, uncomplicated; Z88.0 Allergy status to penicillin; Z91.048 Other nonmedicinal substance allergy status
CPT/HCPCS: 99285; 96372; 82075; 36415; 80053; 85025; 81001; 81025; 80306; J2060

== ENCOUNTER 2020-01-25 17:27 | Inpatient (IN) | payer BC, OTHER ==
--- NOTE | 2020-01-25 17:40 | ED ---
Psych HPI <Luis Jacome - Last Filed: 01/26/20 10:33> - General Source: patient, RN notes reviewed, old records reviewed Mode of arrival: ambulatory - History of Present Illness MD Complaint: suicidal ideation, feels depressed Associated Psychiatric Symptoms: none History of same: No Quality: constant Improves With: none Context: recent alcohol abuse Associated Symptoms: denies other symptoms Treatments Prior to Arrival: placed on mental health hold <Luis Callaway - Last Filed: 01/26/20 18:33> - General Chief Complaint: Psychiatric Symptoms Stated Complaint: Suicidal Time Seen by Provider: 01/25/20 17:40 - History of Present Illness Initial Comments: This is a 24-year-old female presented for alcohol intoxication and depression presenting with friend. Patient does admit to suicidal thinking and depression patient has significant alcohol intoxication (Luis Callaway) - Related Data Home Medications Medication Instructions Recorded Confirmed QUEtiapine [SEROquel] 100 - 200 mg PO DIRECTED 01/25/20 01/25/20 cloNIDine HCL [Catapres] 0.1 mg PO DIRECTED 01/25/20 01/25/20 hydrOXYzine HCL 25 mg PO DIRECTED 01/25/20 01/25/20 Allergies Allergy/AdvReac Type Severity Reaction Status Date / Time Penicillins Allergy Rash/Hives Verified 01/25/20 19:40 red dye Allergy Hallucinati Verified 01/25/20 19:40 ons Review of Systems ROS Other: All systems not noted in ROS Statement are negative. <Luis Jacome - Last Filed: 01/26/20 10:33> ROS Other: All systems not noted in ROS Statement are negative. <Luis Callaway - Last Filed: 01/26/20 18:33> ROS Statement: Those systems with pertinent positive or pertinent negative responses have been documented in the HPI. Past Medical History Past Medical History: No Reported History History of Any Multi-Drug Resistant Organisms: None Reported Past Surgical History: No Surgical Hx Reported Additional Past Anesthesia/Blood Transfusion Reaction / Comment(s): no transf. hx Past Psychological History: Anxiety, Bipolar, Depression Smoking Status: Current every day smoker Past Alcohol Use History: Heavy Past Drug Use History: None Reported - Past Family History Father Family Medical History: No Reported History <Luis Callaway - Last Filed: 01/26/20 18:33> General Exam Limitations: no limitations General appearance: alert, in no apparent distress Head exam: Present: atraumatic, normocephalic, normal inspection Eye exam: Present: normal appearance, PERRL, EOMI. Absent: scleral icterus, conjunctival injection, periorbital swelling ENT exam: Present: normal exam, mucous membranes moist Neck exam: Present: normal inspection. Absent: tenderness, meningismus, lymphadenopathy Respiratory exam: Present: normal lung sounds bilaterally. Absent: respiratory distress, wheezes, rales, rhonchi, stridor Cardiovascular Exam: Present: regular rate, normal rhythm, normal heart sounds. Absent: systolic murmur, diastolic murmur, rubs, gallop, clicks GI/Abdominal exam: Present: soft, normal bowel sounds. Absent: distended, tenderness, guarding, rebound, rigid Extremities exam: Present: normal inspection, full ROM, normal capillary refill. Absent: tenderness, pedal edema, joint swelling, calf tenderness Back exam: Present: normal inspection Neurological exam: Present: alert, oriented X3, CN II-XII intact Psychiatric exam: Present: normal affect, normal mood Skin exam: Present: warm, dry, intact, normal color. Absent: rash <Luis Callaway - Last Filed: 01/26/20 18:33> Course <Luis Callaway - Last Filed: 01/26/20 18:33> Vital Signs 01/25/20 01/25/20 01/26/20 17:27 20:05 01:35 Temperature 98.7 F 98.1 F Pulse Rate 142 H 99 105 H Respiratory 20 17 Rate Blood Pressure 129/86 117/74 100/66 O2 Sat by Pulse 98 100 100 Oximetry 01/26/20 01/26/20 06:53 10:42 Temperature 97.5 F L Pulse Rate 86 82 Respiratory 20 20 Rate Blood Pressure 97/56 103/67 O2 Sat by Pulse 97 98 Oximetry - Reevaluation(s) Reevaluation #1: 01/25/20 18:53 Medical record is reviewed (Luis Callaway) Reevaluation #2: 01/25/20 20:24 Patient did have a fall will assess patient's noses it was bleeding with computed tomography scan (Luis Callaway) Medical Decision Making <Luis Jacome - Last Filed: 01/26/20 10:33> - Radiology Data Radiology results: report reviewed (CT facial bones negative for traumatic injury), image reviewed <Luis Callaway - Last Filed: 01/26/20 18:33> - Medical Decision Making Patient was signed out to me by Dr. Piña. (Luis Jacome) 24 female to be admitted for psychiatric evaluation and treatment (Luis Callaway) - Lab Data Lab Results 01/25/20 01/25/20 Range/Units 19:28 19:28 Urine HCG, Qual Not Detected (Not Detectd) Urine Opiates Screen Not Detected (NotDetected) Ur Oxycodone Screen Not Detected (NotDetected) Urine Methadone Screen Not Detected (NotDetected) Ur Propoxyphene Screen Not Detected (NotDetected) Ur Barbiturates Screen Not Detected (NotDetected) U Tricyclic Antidepress Not Detected (NotDetected) Ur Phencyclidine Scrn Not Detected (NotDetected) Ur Amphetamines Screen Not Detected (NotDetected) U Methamphetamines Scrn Not Detected (NotDetected) U Benzodiazepines Scrn Not Detected (NotDetected) Urine Cocaine Screen Not Detected (NotDetected) U Marijuana (THC) Screen Not Detected (NotDetected) Disposition Time of Disposition: 10:34 <Luis Jacome - Last Filed: 01/26/20 10:33> Is patient prescribed a controlled substance at d/c from ED?: No <Luis Callaway - Last Filed: 01/26/20 18:33> Clinical Impression: Depression, Suicidal ideation Disposition: TRANSFER TO PSYCH HOSP/UNIT Condition: Fair
[2020-01-25 20:05] LABS: Amphetamine Screen,Urine Not Detected (NotDetected); Barbiturate Screen,Urine Not Detected (NotDetected); Benzodiazepines Screen,Urine Not Detected (NotDetected); Cocaine Screen,Urine Not Detected (NotDetected); Methadone Screen, Urine Not Detected (NotDetected); Opiate Screen,Urine Not Detected (NotDetected); Oxycodone Screen, Urine Not Detected (NotDetected); Phencyclidine Screen,Urine Not Detected (NotDetected); Tricyclic Antidepressant,Urine Not Detected (NotDetected); Urn Cannabinoid Scrn Not Detected (NotDetected)
--- NOTE | 2020-01-25 21:19 | CT ---
EXAMINATION TYPE: CT facial bones wo con DATE OF EXAM: 01/25/2020 COMPARISON: None HISTORY: Fall, pain rule out fracture Unenhanced CT of the facial bones was performed in the axial and coronal planes. Bone and soft tissu e window settings are submitted. No significant soft tissue swelling is appreciated. I do not see evidence for displaced facial bone fracture or depressed facial bone fracture. The globes are intact. Paranasal sinuses are well-aerated. IMPRESSION: 1. No evidence for depressed or displaced facial bone fracture.
[2020-01-26] MEDS ORDERED: ACETAMINOPHEN TAB 325 MG TAB PO STA (01:49)
[2020-01-26] MEDS ORDERED: diphenhydrAMINE 50 MG CAP PO STA (04:09)
[2020-01-26] MEDS ORDERED: MAGNESIUM HYDROXIDE 2,400 MG/10 ML CUP PO PRN (10:59)
[2020-01-26] MEDS ORDERED: ACETAMINOPHEN TAB 325 MG TAB PO PRN (10:59)
[2020-01-26] MEDS ORDERED: MAG HYDROX/AL HYDROX/SIMETH 30 ML CUP PO PRN (10:59)
[2020-01-26] MEDS: LORazepam 1 MG TAB PO PRN ×2 (11:56→20:31)
--- NOTE | 2020-01-26 12:03 | P.HP ---
Psychiatric H&P - . History & Physical: Allergies Allergy/AdvReac Type Severity Reaction Status Date / Time Penicillins Allergy Rash/Hives Verified 01/25/20 19:40 red dye Allergy Hallucinati Verified 01/25/20 19:40 ons Vital Signs Temp 99.5 F 01/26/20 10:58 Pulse 87 01/26/20 10:58 Resp 14 01/26/20 10:58 BP 106/65 01/26/20 10:58 Pulse Ox 98 01/26/20 10:58 Intake & Output 01/25/20 01/26/20 01/26/20 18:59 06:59 18:59 Weight 46.266 kg Laboratory Last Values Urine HCG, Qual Not Detected (Not Detectd) 01/25/20 19:28 Urine Opiates Screen Not Detected (NotDetected) 01/25/20 19:28 Ur Oxycodone Screen Not Detected (NotDetected) 01/25/20 19:28 Urine Methadone Screen Not Detected (NotDetected) 01/25/20 19:28 Ur Propoxyphene Screen Not Detected (NotDetected) 01/25/20 19:28 Ur Barbiturates Screen Not Detected (NotDetected) 01/25/20 19:28 U Tricyclic Antidepress Not Detected (NotDetected) 01/25/20 19:28 Ur Phencyclidine Scrn Not Detected (NotDetected) 01/25/20 19:28 Ur Amphetamines Screen Not Detected (NotDetected) 01/25/20 19:28 U Methamphetamines Scrn Not Detected (NotDetected) 01/25/20 19:28 U Benzodiazepines Scrn Not Detected (NotDetected) 01/25/20 19:28 Urine Cocaine Screen Not Detected (NotDetected) 01/25/20 19:28 U Marijuana (THC) Screen Not Detected (NotDetected) 01/25/20 19:28 01/26/20 11:52 IDENTIFYING DATA: This patient is a 24-year-old single female who was admitted to the mental health unit through the emergency room on a petition and clinical certificate reporting suicidal ideation. HPI: The patient presents with a petition stating "suicide attempts and verbalizing wanting to kill herself." This was completed by a friend of hers. Reportedly the patient was brought in by her friends to the emergency room. The patient was intoxicated with alcohol. Once she was sober she was evaluated by the emergency psychiatric nurse. The patient continued to describe suicidal thoughts and indicated that just 1 week ago she attempted suicide by asphyxiation with a running vehicle in a closed garage. The patient indicated she sat in that vehicle for 15 minutes and determined that the attempt was ineffective and aborted the attempt. She admits to continued suicidal thoughts and reports ongoing hopelessness thinking. She indicates she has been frequently crying. Mood is depressed she describes poor sleep and poor appetite with unspecified subsequent weight loss. Energy is low and she reports feelings of anhedonia. It seems that the precipitating cause was a breakup with her boyfriend 2 weeks ago. She states that she feels terribly lonely. Of note the patient was irritable during the evaluation and she indicated several times she did not wish to participate in a comprehensive evaluation. She did state that she resides alone and has no firearms at home. PAST PSYCHIATRIC HISTORY: The patient's second inpatient psychiatric admission. The first one was in November 2016 under the care of Dr. Eckert. At that time she had overdosed with Flexeril. She was placed on Zoloft 50 mg and she did not continue the medication upon discharge from the mental health unit stating "I didn't think I needed it". She states that she has been tried on other psychiatric medicine but does not really recall their names or results. In reviewing the record it appears that she is prescribed Vistaril clonidine and Seroquel by a physician assistant teaching professor. She states she's prescribe Seroquel for sleep but she did not take the medication and she was fearful. She has no outpatient mental healthcare arranged. PMH: None reported ALLERGIES: Penicillin, red dye MEDICATIONS: Refer to MAR CHEMICAL DEPENDENCY HISTORY: She reports that she uses alcohol daily having a double shot. She indicates that she was in rehab 1 year ago for alcohol use, she indicates she was sober for 3 months after discharge from that facility. She reports no use of marijuana or illicit drugs. Her urine drug screen was negative. FAMILY PSYCHIATRIC HISTORY: She reports none, no reported suicides in the family FAMILY CHEMICAL DEPENDENCY HISTORY: Her mother has a history of alcohol use disorder SOCIAL HISTORY: The patient is 24 years old she was born and raised in [place] her parents when she was 12. She was raised by her father and grandmother. She states that she lives alone she has a 4-year-old daughter she states that the daughter's father is currently caring for her. The patient describes a recent breakup with her boyfriend 2 weeks ago she had only been with him for 2 months. The patient indicates that she is employed working at [employer]. She graduated high school, no service. She reports no history of arrests. She reports no legal history. MENTAL STATUS EXAM: The patient is alert she is dressed in hospital gowns she has a mildly disheveled appearance hygiene is adequate. Much of her right forearm is covered with tattoos distal to her elbow. Eye contact is poor. She expresses a sad and angry mood her affect is irritable. She is short with answers sarcastic at times. She provides no spontaneous speech. Speech is fluent nonpressured. She reports feeling hopeless with continued suicidal thoughts she denies having any homicidal ideation intent or plan. She endorses no auditory or visual hallucinations or any specific delusions there is no observed evidence of psychosis. She demonstrates no tangential thinking loose associations or flight of ideas she does not appear hypomanic or manic. She demonstrates no verbal or physical aggressiveness she demonstrates no involuntary repetitive movements. Insight and judgment are impaired. She is oriented to person place and date, she is able to name the days of the week backwards. STRENGTHS/WEAKNESSES: Strengths: Housing, employment weaknesses: Substance use noncompliance with outpatient care need for coping skill development INTELLECTUAL FUNCTIONING: Average IMPRESSIONS: [] 1. Major depressive disorder recurrent severe without psychosis, alcohol use disorder mild, anxiety unspecified, rule out borderline personality disorder PLAN: The patient has been admitted to the mental health unit voluntarily. We reviewed her presenting symptoms and treatment options. We decided to reinitiate the Zoloft for depressive and anxiety symptoms. She has no questions or concerns regarding the medication. Ativan will be used for any acute symptoms of anxiety and to prevent any alcohol withdrawal symptoms. She appears to be at low risk for alcohol withdrawal based on the report she provides. Vital signs reviewed they're within normal limits. She will be seen by internal medicine for routine history and physical exam. Social work will complete a psychosocial assessment and begin discharge planning. She is offered the opportunity to arrange inpatient chemical dependency treatment again however she states she's too angry to talk about it today. We will monitor her for safety, we will encourage her full participation in the milieu, we will involve any available support with treatment and discharge planning as she will allow.
[2020-01-26] MEDS: SERTRALINE 50 MG TAB PO SCH (20:30)
[2020-01-27] MEDS: LORazepam 1 MG TAB PO PRN ×2 (07:23→15:22)
[2020-01-27 07:55] LABS: ALT 14 U/L (4-34); AST 29 U/L (14-36); African American GFR (CKD) >90 (>60 ml/min/1.73 sqM); Albumin 4.5 g/dL (3.5-5.0); Alkaline Phosphatase 62 U/L (38-126); Anion Gap 10 mmol/L; Blood Urea Nitrogen 7 mg/dL (7-17); Calcium 9.8 mg/dL (8.4-10.2); Carbon Dioxide 22 mmol/L (22-30); Chloride 103 mmol/L (98-107); Cholesterol 176 mg/dL (<200); Glucose 92 mg/dL (74-99); HDL Cholesterol 95 mg/dL (40-60); LDL Cholesterol,Calculated 63 mg/dL (0-99); Non-African American GFR(CKD) >90 (>60 ml/min/1.73 sqM); Potassium 4.4 mmol/L (3.5-5.1); Sodium 135 mmol/L (137-145); Total Bilirubin 0.8 mg/dL (0.2-1.3); Total Protein 7.7 g/dL (6.3-8.2); Triglycerides 89 mg/dL (<150)
[2020-01-27] MEDS ORDERED: KETOROLAC 30 MG/ML 1 ML VIAL IM STA (10:04)
--- NOTE | 2020-01-27 10:24 | P.PN ---
Progress Note - Text Progress Note Date: 01/27/20 Interval history: Patient was seen wandering the hallways and was directable and agreeable to s peak with pattern chart writer. Patient appeared to have a soft tone of voice today however was appropriate during interaction. She claims that she has been going to groups and states she is reading her Bible more. She states that she is trying to get along with others on the unit. Patient was preoccupied with discharge and asked when she can leave the hospital. She claimed that her mood has been gradually improving however admits to ongoing anxiety. She asked about replace a medication to act as a anxiolytic and set of Ativan and patient opted to try Vistaril instead. She states that she is able to sleep throughout the night and has fair appetite. At this time patient denies any suicidal or homicidal ideations intent or plan. Denies any Auditory or visual hallucinations. Patient denies any side effects from the medications and has been compliant with meds. Mental status exam: General Appearance: Patient appears to be stated age is alert, directable, and cooperative. Behavior: No agitated behavior. Patient is calm and directable. guarded. Speech: Patient's speech is fluent and nonpressured. Mood/Affect: Mood is improving mildly, affect is congruent and constricted. Suicidality/Homicidality: Patient denies having any suicidal or homicidal ideation intent or plan. Perceptions: Patient denies any auditory or visual hallucinations. Though content/process: There is no evidence of any delusional thought content and thought process is linear and goal-directed. Preoccupied with discharge. Memory and concentration: AOX3, grossly intact for the purposes of this session Judgment and insight: improving mildly Assessment/Plan: Continue with current diagnosis. Patient continues to meet criteria for inpatient psychiatric admission for symptom stabilization and safety.Patient will be maintained on current psychotropic medication regimen, with the exception of Vistaril 25 mg every 6 hours when necessary being added along with melatonin 5 mg daily at bedtime for sleep. Monitor for medication compliance and for any psychotropic medication side effects. Will continue to monitor ongoing response to treatment. Encouraged participation in milieu.
--- NOTE | 2020-01-27 10:38 | P.MDCNMH ---
History of Present Illness H&P Date: 01/27/20 Chief Complaint: Medical management 24-year-old female with PMH of anxiety disorder presents to the ED for worsening anxiety. She is admitted for further observation and management. [facility] physicians has been consulted for medical management of this patient. Patient reports chest pain that has been ongoing for the past 2 weeks. She denies any upper respiratory infection prior to the onset of chest pain. States that this pain started on its own. Chest pain as midsternal, 6 out of 10 in severity, described as dull in nature, aggravated with movement of her chest wal l and associated with worsening anxiety and shortness of breath. She denies any headache, lower extremity edema, nausea or vomiting, fever or chills, cough, palpitations, changes in urination or bowel habits. No changes in appetite or weight. She denies any dizziness, numbness/weakness/tingling of the extremities. Her vital signs have been stable. Review of Systems Pertinent positives and negatives as discussed in HPI, a complete review of systems was performed and all other systems are negative. Past Medical History Past Medical History: No Reported History History of Any Multi-Drug Resistant Organisms: None Reported Past Surgical History: No Surgical Hx Reported Additional Past Anesthesia/Blood Transfusion Reaction / Comment(s): no transf. hx Past Psychological History: Anxiety, Bipolar, Depression Smoking Status: Current every day smoker Past Alcohol Use History: Heavy Past Drug Use History: None Reported - Past Family History Father Family Medical History: No Reported History Medications and Allergies Home Medications Medication Instructions Recorded Confirmed Type QUEtiapine [SEROquel] 100 - 200 mg PO DIRECTED 01/25/20 01/25/20 History RX: hydrOXYzine HCL 25 mg PO DIRECTED 01/25/20 01/25/20 History cloNIDine HCL [Catapres] 0.1 mg PO DIRECTED 01/25/20 01/25/20 History Allergies Allergy/AdvReac Type Severity Reaction Status Date / Time Penicillins Allergy Rash/Hives Verified 01/25/20 19:40 red dye Allergy Hallucinati Verified 01/25/20 19:40 ons Physical Exam Vitals: Vital Signs Temp Pulse Pulse Resp BP BP Pulse Ox 01/27/20 06:33 98.7 F 81 17 122/99 99 01/26/20 21:00 99.0 F 01/26/20 17:54 93 123/76 01/26/20 10:58 99.5 F 87 14 106/65 98 01/26/20 10:42 82 20 103/67 98 General: [non toxic], [no distress], [appears at stated age] Derm: [warm], [dry] Head: [atraumatic], [normocephalic], [symmetric] Eyes: [EOMI], [no lid lag], [anicteric sclera] Mouth: [no lip lesion], [mucus membranes moist] Cardiovascular: [S1S2 reg], [no murmur], [positive posterior tibial pulse bilateral], tenderness to palpation over the coastal cartilage Lungs: [CTA bilateral], [no rhonchi, no rales] , [no accessory muscle use] Abdominal: [soft], [ nontender to palpation], [no guarding], [no appreciable organomegaly] Ext: [no gross muscle atrophy], [no edema], [no contractures] Neuro: [ CN II-XI grossly intact], [no focal neuro deficits] Psych: [Alert], [oriented], [appropriate affect] Cranial Nerve Examination - Cranial Nerves Cranial Nerve II- Optic: Intact Cranial Nerve III- Oculomotor: Intact Cranial Nerve IV- Trochlear: Intact Cranial Nerve V- Trigeminal: Intact Cranial Nerve - Abducens: Intact Cranial Nerve VII- Facial: Intact Cranial Nerve VIII- Auditory: Intact Cranial Nerve IX- Glossopharyngeal: Intact Cranial Nerve X- Vagus: Intact Cranial Nerve XI- Accessory: Intact Cranial Nerve XII- Hypoglossal: Intact Results CBC & Chem 7: 01/27/20 07:17 Labs: Abnormal Lab Results - Last 24 Hours (Table) 01/27/20 Range/Units 07:17 Sodium 135 L (137-145) mmol/L HDL Cholesterol 95 H (40-60) mg/dL Assessment and Plan Assessment: Chest pain likely related to costochondritis Smoker Her chest pain is atypical for ACS. There is tenderness along the coastal cartilage. This is likely costochondritis exacerbating her anxiety. Discussed with nursing, one-time dose of Toradol 30 mg IM. If her chest pain does not improve we will proceed with EKG and chest x-ray as she is uninsured. She has been offered a nicotine patch but refuses, would like to quit smoking on discharge. Thank you for this consult. Please call with any additional questions or c oncerns.
[2020-01-27] MEDS: MELATONIN 5 MG TABLET PO SCH (20:20)
[2020-01-27] MEDS: hydrOXYzine PAMOATE 25 MG CAP PO PRN (20:39)
[2020-01-27] MEDS: SERTRALINE 50 MG TAB PO SCH (21:56)
--- NOTE | 2020-01-28 10:22 | P.PN ---
Progress Note - Text Progress Note Date: 01/28/20 Interval history: Patient was seen lying in her bed this morning and was directable and agreeable to speak with underwriter. Patient appeared to have a calmer affect and demeanor during the encounter. She states that she has been going to groups and participating in this as she can. Patient continues to be focused on discharge. He states that she did have some musculoskeletal pain and received a Toradol shot yesterday and was agreeable to take ibuprofen today, but the pain. She claims that she is continuing to read the Bible. She states that her mood is been gradually improving along with her anxiety. She claims that the Vistaril did help her with her anxiety. She states that she is able to sleep throughout the night and has fair appetite. At this time patient denies any suicidal or homicidal ideations intent or plan. Denies any Auditory or visual hallucinations. Patient denies any side effects from the medications and has been compliant with meds. Mental status exam: General Appearance: Patient appears to be stated age is alert, directable, and cooperative. Behavior: No agitated behavior. Patient is calm and directable. guarded. Speech: Patient's speech is fluent and nonpressured. Mood/Affect: Mood is improving mildly, affect is congruent and constricted. Suicidality/Homicidality: Patient denies having any suicidal or homicidal ideation intent or plan. Perceptions: Patient denies any auditory or visual hallucinations. Though content/process: There is no evidence of any delusional thought content and thought process is linear and goal-directed. Preoccupied with discharge. Memory and concentration: AOX3, grossly intact for the purposes of this session Judgment and insight: improving mildly Assessment/Plan: Continue with current diagnosis. Patient continues to meet criteria for inpatient psychiatric admission for symptom stabilization and safety.Patient will be maintained on current psychotropic medication regimen, with the exception of addition of ibuprofen when necessary for pain. Patient also did not take her Zoloft last night and wanted to have the dosing schedule switched to qAM dosing. Zoloft changed to 50 mg daily. Monitor for medication compliance and for any psychotropic medication side effects. Will continue to monitor ongoing response to treatment. Encouraged participation in milieu.
[2020-01-28] MEDS: SERTRALINE 50 MG TAB PO SCH (10:25)
[2020-01-28] MEDS: IBUPROFEN 600 MG TAB PO PRN ×2 (10:25→21:11)
[2020-01-28] MEDS: LORazepam 1 MG TAB PO PRN ×2 (10:38→16:48)
[2020-01-28] MEDS: hydrOXYzine PAMOATE 25 MG CAP PO PRN (21:13)
[2020-01-28] MEDS: MELATONIN 5 MG TABLET PO SCH (21:15)
[2020-01-29] MEDS: SERTRALINE 50 MG TAB PO SCH (08:30)
[2020-01-29] MEDS: LORazepam 1 MG TAB PO PRN ×2 (08:30→20:15)
--- NOTE | 2020-01-29 10:48 | P.PN ---
Progress Note - Text Interval history: The patient is found at the front end application developer she follows me to an interview room. She indicates that her mood is better than when he spoke last on Wednesday. He states that her suicidal thoughts and her most recent suicide attempt occurred in the context of her using alcohol. She states that she had been drinking more regularly and realizes she needs to stop. She does not wish to participate in inpatient chemical dependency treatment however. We reviewed her psychotropic medication. Her questions were answered. We discussed the need for her to have an outpatient therapist upon discharge. She admits that she has not followed through with her mental health treatment as an outpatient but feels that she is committed to that now. She states that her friend Gemini would be the best person to reach out to in terms of assessing her support. She reports attending groups appetite stable. Mental status exam: The patient is a thin female appearing her stated age she stressor own clothing. Eye contact is appropriate speech is fluent spontaneous nonpressured. She is much more interactive during this evaluation compared to Wednesday. She reports her mood is better. She indicates that she feels safe in the hospital. She is reporting no homicidal ideation intent or plan. She reports no auditory or visual hallucinations or any specific delusions. There is no observable evidence of psychosis. She demonstrates no verbal or physical aggressiveness. Insight and judgment slowly improving. She remains oriented to person place and date. Plan: The patient will continue on her current psychotropic medication. We will consider titrating the Zoloft to 100 mg. Social work will reach out to the patient's friend to assess her support outside of the hospital. We discussed referring the patient to [facility] for outpatient care. The patient does not wish to participate in inpatient chemical dependency treatment. She is instructed to continue participating in groups we will monitor her for safety. If she demonstrated sufficient clinical improvement she may be appropriate for discharge in the next 1-2 days.
[2020-01-29] MEDS: hydrOXYzine PAMOATE 25 MG CAP PO PRN (16:06)
[2020-01-29] MEDS: IBUPROFEN 600 MG TAB PO PRN (20:15)
[2020-01-29] MEDS: MELATONIN 5 MG TABLET PO SCH (21:22)
[2020-01-30 06:51] VITALS: BP 139/84; PULSE 64; RESP 18; TEMP 98.4
[2020-01-30] MEDS: SERTRALINE 50 MG TAB PO SCH (08:23)
[2020-01-30] MEDS: LORazepam 1 MG TAB PO PRN (08:24)
--- NOTE | 2020-01-30 09:39 | P.DS ---
Providers Date of admission: 01/26/20 09:26 Expected date of discharge: 01/30/20 Attending physician: Zak Damian Consults: 01/26/20 10:59 Consult Physician Routine Consulting Provider: Nina Physician Consult Reason/Comments: New admission Do you want consulting provider notified?: Yes Primary care physician: Stated None - Discharge Diagnosis(es) (1) Major depressive disorder, recurrent severe without psychotic features Current Visit: Yes Status: Acute Priority: High (2) Alcohol use disorder, moderate, dependence Current Visit: Yes Status: Acute Priority: Medium (3) Panic attacks Current Visit: Yes Status: Acute Priority: Medium Hospital Course: Brief summary of admission note: This patient is a 24-year-old single female who was admitted to the mental health unit through the emergency room on a petition and clinical certificate indicating she was reporting suicidal ideation. The patient indicated that she had attempted suicide a week prior by asphyxiation. She states that she has been overusing alcohol and that she was intoxicated when she attempted suicide. A recent stressor includes a breakup with a boyfriend just 2 weeks prior. She presented with hopelessness thinking continued suicidal thoughts depressed mood for sleep or appetite. She described experiencing panic attacks more frequently. She was petition to the hospital by her friend. For full details please refer to the psychiatric evaluation dated 01/26/2020. Summary of hospital course: The patient was admitted to the mental health unit she did sign in voluntarily. We reviewed her presenting symptoms and treatment options. She was seen by internal medicine for routine history and physical exam. Social work met with the patient to complete a psychosocial assessment for discharge planning purposes. We discussed the possibility of having her attend inpatient chemical dependency treatment but she declined area we did have a discussion about starting naltrexone and she is agreeable. We restarted her Zoloft and this was titrated ultimately to 100 mg daily. Vistaril was used 25 mg up to twice daily as needed for anxiety. Melatonin 5 mg was used for sleep at night. The patient attended groups she demonstrated no agitated behavior. She reported a progressive improvement of symptoms while here. She states there has been a complete resolution of any hopeless thinking or suicidal thoughts. Her friend who completed the petition is going to pick the patient up. The patient states that this friend will stay with her for a few days upon discharge. Mental status exam: The patient is alert she is a thin female appearing her stated age she is dressed in her own clothing hygiene grooming are adequate. Eye contact is good speech is fluent spontaneous nonpressured. She presents with a bright affect she demonstrates an appropriate range of affect. She indic ates her mood is good she is reporting no hopelessness thinking she reports no suicidal ideation intent or plan. She states that she does not have those thoughts when she is sober. She demonstrates no tangential thinking loose associations or flight of ideas. There is no evidence of hypomania or treasure. She reports no auditory or visual hallucinations she endorses no specific delusions. There is no observed evidence of psychosis. She reports no homicidal ideation intent or plan. Insight and judgment grossly intact. Cognitively she is oriented to person place and date. She demonstrates no verbal or physical aggressiveness she demonstrates no involuntary repetitive movements. Impressions 1. Major depressive disorder recurrent severe without psychosis, alcohol use disorder moderate, panic attacks, rule out borderline personality disorder Plan: The patient will be discharged mental health unit today. She will return to her residence. She plans on having her friend stay with her for a few days after discharge. Social work will arrange the patient's outpatient mental health follow-up. We will continue her on Zoloft at 100 mg daily, Vistaril 25 mg up to twice daily as needed, melatonin 5 mg at bedtime as needed, she is willing to start naltrexone 50 mg daily. She is instructed to abstain from any use of alcohol marijuana or illicit drugs as sees will provoke mood symptoms and elevate for safety risk. She does not wish to participate in inpatient chemical dependency treatment. At this time there is no imminent safety risk she is appropriate for transition outpatient care. She is instructed to return to the hospital if any acute safety concerns. Patient Condition at Discharge: Stable Plan - Discharge Summary New Discharge Prescriptions: New Melatonin 5 mg PO HS #30 tablet Naltrexone HCl [Revia] 50 mg PO DAILY #30 tab hydrOXYzine PAMOATE [Vistaril] 25 mg PO BID PRN #40 capsule PRN Reason: Anxiety Sertraline [Zoloft] 100 mg PO DAILY #30 tab Discontinued cloNIDine HCL [Catapres] 0.1 mg PO DIRECTED QUEtiapine [SEROquel] 100 - 200 mg PO DIRECTED hydrOXYzine HCL 25 mg PO DIRECTED Discharge Medication List Melatonin 5 mg PO HS #30 tablet 01/30/20 [Rx] Naltrexone HCl [Revia] 50 mg PO DAILY #30 tab 01/30/20 [Rx] Sertraline [Zoloft] 100 mg PO DAILY #30 tab 01/30/20 [Rx] hydrOXYzine PAMOATE [Vistaril] 25 mg PO BID PRN #40 capsule 01/30/20 [Rx] Follow up Appointment(s)/Referral(s): None,Stated [Primary Care Provider] - 1-2 days Activity/Diet/Wound Care/Special Instructions: Activity and diet as tolerated. Avoid the use of street drugs and alcohol. Take all medications as prescribed. When you are in need of refills on your medications please contact your medical provider and/or outpatient psychiatrist to have this done. Please go to scheduled outpatient appointment for aftercare treatment. If symptoms return or become worse, call the crisis line at and/or go to the nearest emergency room for evaluation
[2020-01-31] MEDS ORDERED: SERTRALINE 100 MG TAB PO SCH (09:00)
[2020-01-31] MEDS ORDERED: NALTREXONE HCL 50 MG TAB PO SCH (09:00)
== END 2020-01-30 12:26 | disposition home or self-care (01) | DRG 885 ==
LOC: EC 17:27 → 3MHU 01-26 09:26
PROVIDERS: ADMIT Psychiatry & Neurology Psychiatry; ATTEND Psychiatry & Neurology Psychiatry
DX: F33.2 Major depressive disorder, recurrent severe without psychotic features (principal); R45.851 Suicidal ideations; F41.0 Panic disorder [episodic paroxysmal anxiety]; F10.229 Alcohol dependence with intoxication, unspecified; F17.200 Nicotine dependence, unspecified, uncomplicated; M94.0 Chondrocostal junction syndrome [Tietze]; F60.3 Borderline personality disorder; Z88.0 Allergy status to penicillin; Z91.09 Other allergy status, other than to drugs and biological substances
CPT/HCPCS: 70486; 80053; 80061; 80306; 81025; 82075; 83036; 84443; 99285

== ENCOUNTER 2020-05-25 09:24 | Emergency (ER) | payer OTHER ==
[2020-05-25 09:31] VITALS: BP 123/87; RESP 18
[2020-05-25] MEDS ORDERED: IBUPROFEN 600 MG STARTER PACK 4 TAB BTL PO STA (09:42)
--- NOTE | 2020-05-25 09:49 | ED ---
ENT HPI - General Chief complaint: ENT Stated complaint: fever/congestion Time Seen by Provider: 05/25/20 09:32 Source: patient, RN notes reviewed, old records reviewed Mode of arrival: ambulatory Limitations: no limitations - History of Present Illness Initial comments: Patient is a 24-year-old female presents emergency department today with complaints of intermittent fevers for the past week. She reports that she has not been able to work and she has had a fever every time she is went to work for the past 3 days. Patient complains of chills and body aches. She denies any significant cough or shortness of breath. She was in the fan nose and sore throat. No vomiting. She is currently on her menstrual cycle. Patient states that she is here to be tested to rule out covid. - Related Data Previous Rx's Medication Instructions Recorded Melatonin 5 mg PO HS #30 tablet 01/30/20 Naltrexone HCl [Revia] 50 mg PO DAILY #30 tab 01/30/20 Sertraline [Zoloft] 100 mg PO DAILY #30 tab 01/30/20 hydrOXYzine pamoate [Vistaril] 25 mg PO BID PRN #40 capsule 01/30/20 Acetaminophen Tab [Tylenol] 650 mg PO Q4H #20 tab 05/25/20 Ibuprofen [Motrin] 600 mg PO Q6HR PRN #20 tab 05/25/20 Allergies Allergy/AdvReac Type Severity Reaction Status Date / Time Penicillins Allergy Rash/Hives Verified 05/25/20 09:31 red dye Allergy Hallucinati Verified 05/25/20 09:31 ons Review of Systems ROS Statement: Those systems with pertinent positive or pertinent negative responses have been documented in the HPI. ROS Other: All systems not noted in ROS Statement are negative. Past Medical History Past Medical History: No Reported History History of Any Multi-Drug Resistant Organisms: None Reported Past Surgical History: No Surgical Hx Reported Additional Past Anesthesia/Blood Transfusion Reaction / Comment(s): no transf. hx Past Psychological History: Anxiety, Bipolar, Depression Smoking Status: Current every day smoker Past Alcohol Use History: Occasional Past Drug Use History: None Reported - Past Family History Father Family Medical History: No Reported History General Exam - General Exam Comments Initial Comments: Well-appearing 24-year-old female. No distress. Limitations: no limitations General appearance: alert Head exam: Present: atraumatic, normocephalic, normal inspection Eye exam: Present: normal appearance ENT exam: Present: normal exam, mucous membranes moist Neck exam: Present: normal inspection. Absent: tenderness, meningismus, lymphadenopathy Respiratory exam: Present: normal lung sounds bilaterally. Absent: respiratory distress, wheezes, rales, rhonchi, stridor Cardiovascular Exam: Present: regular rate, normal rhythm, normal heart sounds. Absent: systolic murmur, diastolic murmur, rubs, gallop, clicks GI/Abdominal exam: Present: soft, normal bowel sounds. Absent: distended, tenderness, guarding, rebound, rigid Extremities exam: Present: normal inspection, full ROM, normal capillary refill. Absent: tenderness, pedal edema, joint swelling, calf tenderness Back exam: Present: normal inspection Neurological exam: Present: alert, oriented X3, CN II-XII intact Psychiatric exam: Present: normal affect, normal mood Skin exam: Present: warm, dry, intact, normal color. Absent: rash Course Vital Signs 05/25/20 09:26 Temperature 98.8 F Pulse Rate 115 H Respiratory 18 Rate Blood Pressure 123/87 O2 Sat by Pulse 98 Oximetry Medical Decision Making - Medical Decision Making Patient's a well-appearing 24-year-old female who presents for evaluation for intermittent fevers this past week and wants to rule out coated. Patient had nasal spine. She has no difficulty breathing or chest pain. Patient is on her menstrual cycle. Patient has no vomiting or diarrhea. She otherwise appears clinically well. Vital signs are stable. Patient was tested for ova 19 advised to self or 10 until results of the sense that she should not be going to work if she has fever. I discussed altering Tylenol and Motrin. Discussed symptomatically treatment. Disposition Clinical Impression: Suspected COVID-19 virus infection Disposition: HOME SELF-CARE Condition: Good Instructions (If sedation given, give patient instructions): Upper Respiratory Infection (ED) Additional Instructions: Patient should self quarantined until results of covid test and not go to work if he continued have fever chills and bodyaches. Patient should alternate between Tylenol Motrin for fevers and pain. Return to ED if any alarming signs or symptoms occur. Coronavirus (COVID-19) Discharge Instructions You may have Covid 19 infection. Results available in 1-2 days. It is a viral illness that can cause fever, cough and trouble breathing. Some people may have chills, muscle aches, runny nose, sneezing, sore throat, upset stomach or loose stool. When leaving the hospital you will be asked to wear a mask. You should wear it until you get home. When do I need to call the doctor? ?Call your doctor if your breathing is getting worse (harder or faster than before or you feel like you are getting less air). ?Some people start to feel worse in the second week of their illness, if you start to feel worse at any time in your illness, please call your doctor, who will tell you where to go to be seen. ?If you can, put on a facemask before leaving home or before you enter the clinic or hospital. Get medical attention right away if you develop emergency warning signs of COVID-19 such as: trouble breathing, chest pain or pressure that does not go away, new confusion or not able to wake up, bluish lips or face. Precautions at home The virus is spread easily through tiny droplets when you cough or sneeze. You should take these steps to help prevent the disease from spreading to people in your home and community 1. Self-isolate at home As advised by the Centers for Disease Control and Prevention (CDC), we ask you to stay in your home and limit contact with others to avoid spreading this virus. Stay home except to go to the doctor ?Do not go to work, school, or public areas, except for getting medical care. ?Avoid using public transportation (such as buses), ride-sharing, or taxis. ?If you have an upcoming doctor appointment, call the office and tell them that you have COVID-19. Separate yourself from other people and animals in your home. ?Avoid touching other people, including handshaking. ?As much as you can, stay in a specific room and away from other people in your home. ?You should also use a separate bathroom, if available. ?Avoid sharing personal household items. ?You should not share dishes, drinking glasses, cups, eating utensils, towels, toothpaste, or bedding with other people or pets in your home. ?After using these items, they should be washed well with soap and water. ?Do not handle pets or other animals while sick. 2. Clean and disinfect Clean all high-touch surfaces every day. ?High-touch surfaces include counters, tabletops, doorknobs, bathroom fixtures, toilets, phones, keyboards, tablets, and bedside tables. ?Clean any surfaces that may have blood, stool, or body fluids on them. Use a household cleaning spray or wipe, according to the label instructions. ?Labels contain instructions for safe and effective use of the cleaning product including precautions you should take when applying the product, such as wearing gloves and making sure you have good air flow in the room during use of the product. Wash laundry. ?Remove and wash clothes or bedding that have blood, stool, or body fluids on them and then wash your hands right away 3. Help stop the spread Clean your hands often. ?Wash your hands with soap and water for at least 20 seconds. OR ?Use an alcohol-based hand public works director that contains at least 60% alcohol, covering all surfaces of your hands and rubbing them together until they feel dry. ?Wash your hands after blowing your nose, coughing, or sneezing; going to the bathroom, and before eating or preparing food. ?Avoid touching your eyes, nose, and mouth with unwashed hands. Cover your coughs and sneezes. ?Cover your mouth and nose with a tissue when you cough or sneeze. ?Throw used tissues in a lined trash can; clean your hands right away. Wear a facemask ?You should wear a facemask when you are around other people (e.g., sharing a room or vehicle) or pets and before you enter a healthcare providers office. 4. Notify your close contacts ?People that you live with should self-isolate for 14 days AFTER your self- isolation period ends. ?Other close contacts such as caretakers and intimate partners should self- isolate for 14 days AFTER your last contact with them. ?Your close contacts should self-monitor for symptoms by checking their temperature twice a day and watching for fever, cough, or shortness of breath. They should contact their doctor if they develop symptoms of COVID-19. ?They should also clean hands often and avoid touching eyes, nose, and mouth with unwashed hands. ?They should wear a mask if they have to be in the same room as you if you are not able to wear one. Prescriptions: Ibuprofen [Motrin] 600 mg PO Q6HR PRN #20 tab PRN Reason: Fever Acetaminophen Tab [Tylenol] 650 mg PO Q4H #20 tab Is patient prescribed a controlled substance at d/c from ED?: No Referrals: Hazel Williamson DO [Primary Care Provider] - 1-2 days Time of Disposition: 09:48
[2020-05-25 09:52] VITALS: PULSE 107; TEMP 98.4
== END 2020-05-25 09:56 | disposition home or self-care (01) ==
LOC: EC 09:24
DX: R50.9 Fever, unspecified (principal); F17.200 Nicotine dependence, unspecified, uncomplicated; Z88.0 Allergy status to penicillin; Z91.09 Other allergy status, other than to drugs and biological substances; Z20.828 Contact with and (suspected) exposure to other viral communicable diseases
CPT/HCPCS: 99283; U0003

== ENCOUNTER 2020-10-01 13:18 | Emergency (ER) | payer OTHER ==
--- NOTE | 2020-10-01 13:45 | ED ---
General Adult HPI - General Chief complaint: Overdose Stated complaint: Overdose Time Seen by Provider: 10/01/20 13:20 Source: patient, RN notes reviewed, old records reviewed Mode of arrival: ambulatory Limitations: no limitations - History of Present Illness Initial comments: This is a 25-year-old female who presents to the emergency department stating that she went to [facility] and while she was being checked and she decided to take a couple more pills those pills turned out to be Xanax and fentanyl. Patient went unresponsive when EMS arrived they gave her 4 mg of Narcan and she was back to being alert and oriented 3. Patient denies any alcohol use patient denies any other drug use. Patient currently has no complaints and she is alert and oriented 4 she just would like to leave and doesn't want any further workup. - Related Data Home Medications Medication Instructions Recorded Confirmed No Known Home Medications 10/01/20 10/01/20 Allergies Allergy/AdvReac Type Severity Reaction Status Date / Time Penicillins Allergy Rash/Hives Verified 10/01/20 14:19 red dye Allergy Hallucinati Verified 10/01/20 14:19 ons Review of Systems ROS Statement: Those systems with pertinent positive or pertinent negative responses have been documented in the HPI. ROS Other: All systems not noted in ROS Statement are negative. Past Medical History Past Medical History: No Reported History History of Any Multi-Drug Resistant Organisms: None Reported Past Surgical History: No Surgical Hx Reported Additional Past Anesthesia/Blood Transfusion Reaction / Comment(s): no transf. hx Past Psychological History: Anxiety, Bipolar, Depression Smoking Status: Current every day smoker Past Alcohol Use History: Occasional Past Drug Use History: Opiates - Past Family History Father Family Medical History: No Reported History General Exam - General Exam Comments Initial Comments: GENERAL: Patient is well-developed and well-nourished. Patient is nontoxic and well- hydrated and is in mild distress. ENT: Neck is soft and supple. No significant lymphadenopathy is noted. Oropharynx is clear. Moist mucous membranes. Neck has full range of motion without eliciting any pain. EYES: The sclera were anicteric and conjunctiva were pink and moist. Extraocular movements were intact and pupils were equal round and reactive to light. Eyelids were unremarkable. PULMONARY: Unlabored respirations. Good breath sounds bilaterally. No audible rales rhonchi or wheezing was noted. CARDIOVASCULAR: There is a regular rate and rhythm without any murmurs gallops or rubs. ABDOMEN: Soft and nontender with normal bowel sounds. SKIN: Skin is clear with no lesions or rashes and otherwise unremarkable. NEUROLOGIC: Patient is alert and oriented x3. Cranial nerves II through XII are grossly intact. Motor and sensory are also intact. Normal speech, volume and content. Symmetrical smile. MUSCULOSKELETAL: Normal extremities with adequate strength and full range of motion. LYMPHATICS: No significant lymphadenopathy is noted PSYCHIATRIC: Normal psychiatric evaluation. Patient denies suicidal or homicidal ideations. Limitations: no limitations Course Vital Signs 10/01/20 13:26 Temperature 97.8 F Pulse Rate 86 Respiratory 18 Rate Blood Pressure 115/76 O2 Sat by Pulse 96 Oximetry Medical Decision Making - Medical Decision Making I twice went back to reevaluate the patient she was alert and oriented and had no complaints she was able to and it without problem and patient ate a sandwich and some chips without a problem. Disposition Clinical Impression: Accidental overdose, Narcotic abuse, Benzodiazepine abuse Disposition: HOME SELF-CARE Condition: Good Instructions (If sedation given, give patient instructions): Adult Overdose (ED) Is patient prescribed a controlled substance at d/c from ED?: No Referrals: Hazel Williamson DO [Primary Care Provider] - 1-2 days Time of Disposition: 14:44
[2020-10-01 14:52] LABS: Amphetamine Screen,Urine Not Detected (NotDetected); Barbiturate Screen,Urine Not Detected (NotDetected); Benzodiazepines Screen,Urine Detected (NotDetected); Cocaine Screen,Urine Not Detected (NotDetected); Methadone Screen, Urine Not Detected (NotDetected); Opiate Screen,Urine Not Detected (NotDetected); Oxycodone Screen, Urine Not Detected (NotDetected); Phencyclidine Screen,Urine Not Detected (NotDetected); Tricyclic Antidepressant,Urine Not Detected (NotDetected); Urn Cannabinoid Scrn Not Detected (NotDetected)
[2020-10-01 15:04] VITALS: BP 118/60; PULSE 82; RESP 16; TEMP 98
== END 2020-10-01 15:02 | disposition home or self-care (01) ==
LOC: EC 13:18
DX: F11.10 Opioid abuse, uncomplicated (principal); F13.10 Sedative, hypnotic or anxiolytic abuse, uncomplicated; F17.200 Nicotine dependence, unspecified, uncomplicated; F32.9 Major depressive disorder, single episode, unspecified; F41.9 Anxiety disorder, unspecified; Z88.0 Allergy status to penicillin
CPT/HCPCS: 80306; 99284

== ENCOUNTER → 2021-08-27 | Outpatient (CLI) | payer OTHER | END | disposition home or self-care (01) | LOC: LABWHC1 15:10 | PROVIDERS: ATTEND Obstetrics & Gynecology | DX: O20.0 Threatened abortion (principal); O20.9 Hemorrhage in early pregnancy, unspecified; Z3A.00 Weeks of gestation of pregnancy not specified | CPT/HCPCS: 36415; 84702 ==

== ENCOUNTER → 2021-08-29 | Outpatient (CLI) | payer OTHER | END | disposition home or self-care (01) | LOC: LABWHC1 10:39 | PROVIDERS: ATTEND Obstetrics & Gynecology | DX: O20.0 Threatened abortion (principal); Z3A.00 Weeks of gestation of pregnancy not specified | CPT/HCPCS: 36415; 84702 ==

== ENCOUNTER 2021-09-02 05:28 | Inpatient (IN) | payer BC, OTHER ==
[2021-09-02] MEDS ORDERED: SODIUM CHLORIDE 0.9% 1,000 ML IV ONE (06:18)
[2021-09-02] MEDS ORDERED: ACETAMINOPHEN TAB 500 MG TAB PO STA (06:18)
--- NOTE | 2021-09-02 06:25 | ED ---
General Adult HPI - General Chief complaint: Abdominal Pain Stated complaint: 8 wks preg, cramping Time Seen by Provider: 09/02/21 06:04 Source: patient Mode of arrival: ambulatory Limitations: no limitations - History of Present Illness Initial comments: 26-year-old female presents to the emergency room for a chief complaint of abdominal pain. Patient states that she is 8 weeks . Patient has an LMP of 07/07/2021. Patient states she started to have cramping about an hour prior to arrival. States it is across the lower abdomen. She is not having any vaginal bleeding. Patient states she does have an ultrasound scheduled in [address] Fishman but has not yet seen an SLOT FLOOR SUPERVISOR.Patient has no other complaints at this time including shortness of breath, chest pain, nausea or vomiting, headache, or visual changes. - Related Data Home Medications Medication Instructions Recorded Confirmed Pnv,Calcium 72/Iron/Folic Acid 1 tab PO DAILY 09/02/21 09/02/21 [ Plus Tablet] Allergies Allergy/AdvReac Type Severity Reaction Status Date / Time Penicillins Allergy Rash/Hives Verified 09/02/21 07:11 red dye Allergy Hallucinati Verified 09/02/21 07:11 ons Review of Systems ROS Statement: Those systems with pertinent positive or pertinent negative responses have been documented in the HPI. ROS Other: All systems not noted in ROS Statement are negative. Past Medical History Past Medical History: No Reported History History of Any Multi-Drug Resistant Organisms: None Reported Past Surgical History: No Surgical Hx Reported Additional Past Anesthesia/Blood Transfusion Reaction / Comment(s): no transf. hx Past Psychological History: Anxiety, Bipolar, Depression Smoking Status: Current every day smoker Past Alcohol Use History: Occasional Past Drug Use History: Opiates - Past Family History Father Family Medical History: No Reported History General Exam Limitations: no limitations General appearance: alert, in no apparent distress Head exam: Present: atraumatic Eye exam: Present: normal appearance, PERRL, EOMI. Absent: scleral icterus, conjunctival injection ENT exam: Present: normal exam, mucous membranes moist Neck exam: Present: normal inspection, full ROM. Absent: tenderness Respiratory exam: Present: normal lung sounds bilaterally. Absent: respiratory distress, wheezes Cardiovascular Exam: Present: regular rate, normal rhythm, normal heart sounds GI/Abdominal exam: Present: soft, normal bowel sounds. Absent: distended, tenderness Neurological exam: Present: alert Course Vital Signs 09/02/21 09/02/21 05:33 09:01 Temperature 98.1 F Pulse Rate 89 77 Respiratory 18 17 Rate Blood Pressure 97/60 96/59 O2 Sat by Pulse 100 100 Oximetry - Reevaluation(s) Reevaluation #1: 09/02/21 08:50 Dr Fishman contacted, aware of concern for ectopic, will review US Medical Decision Making - Medical Decision Making vitals stable. pt presents with RLQ pain and 8 week . US concerning for ectopic. Case discussed with Dr Fishman who saw patient at bedside and is taking p atient to OR. - Lab Data Result diagrams: 09/02/21 06:37 09/02/21 06:37 Lab Results 09/02/21 09/02/21 09/02/21 Range/Units 06:37 06:37 06:37 WBC 9.4 (3.8-10.6) k/uL RBC 3.98 (3.80-5.40) m/uL Hgb 12.1 (11.4-16.0) gm/dL Hct 37.8 (34.0-46.0) % MCV 95.0 (80.0-100.0) fL MCH 30.4 (25.0-35.0) pg MCHC 32.0 (31.0-37.0) g/dL RDW 13.0 (11.5-15.5) % Plt Count 333 (150-450) k/uL MPV 6.8 Neutrophils % 73 % Lymphocytes % 17 % Monocytes % 8 % Eosinophils % 1 % Basophils % 0 % Neutrophils # 6.8 (1.3-7.7) k/uL Lymphocytes # 1.6 (1.0-4.8) k/uL Monocytes # 0.8 (0-1.0) k/uL Eosinophils # 0.1 (0-0.7) k/uL Basophils # 0.0 (0-0.2) k/uL Sodium 136 L (137-145) mmol/L Potassium 4.5 (3.5-5.1) mmol/L Chloride 106 (98-107) mmol/L Carbon Dioxide 22 (22-30) mmol/L Anion Gap 8 mmol/L BUN 7 (7-17) mg/dL Creatinine 0.43 L (0.52-1.04) mg/dL Est GFR (CKD-EPI)AfAm >90 (>60 ml/min/1.73 sqM) Est GFR (CKD-EPI)NonAf >90 (>60 ml/min/1.73 sqM) Glucose 90 (74-99) mg/dL Calcium 9.7 (8.4-10.2) mg/dL Total Bilirubin 0.6 (0.2-1.3) mg/dL AST 44 H (14-36) U/L ALT 64 H (4-34) U/L Alkaline Phosphatase 36 L (38-126) U/L Total Protein 7.6 (6.3-8.2) g/dL Albumin 4.3 (3.5-5.0) g/dL HCG, Quant 58410.2 mIU/mL Urine Color Urine Appearance (Clear) Urine pH (5.0-8.0) Ur Specific [place] (1.001-1.035) Urine Protein (Negative) Urine Glucose (UA) (Negative) Urine Ketones (Negative) Urine Blood (Negative) Urine Nitrite (Negative) Urine Bilirubin (Negative) Urine Urobilinogen (<2.0) mg/dL Ur Leukocyte Esterase (Negative) Urine RBC (0-5) /hpf Urine WBC (0-5) /hpf Ur Squamous Epith Cells (0-4) /hpf Urine Bacteria (None) /hpf Hyaline Casts (0-2) /lpf Urine Mucus (None) /hpf Blood Type O Positive Blood Type Recheck O Pos Bld Type Recheck Status No Antibody Screen NEGATIVE Spec Expiration Date 09/05/2021 - 233609/02/21 Range/Units 07:45 WBC (3.8-10.6) k/uL RBC (3.80-5.40) m/uL Hgb (11.4-16.0) gm/dL Hct (34.0-46.0) % MCV (80.0-100.0) fL MCH (25.0-35.0) pg MCHC (31.0-37.0) g/dL RDW (11.5-15.5) % Plt Count (150-450) k/uL MPV Neutrophils % % Lymphocytes % % Monocytes % % Eosinophils % % Basophils % % Neutrophils # (1.3-7.7) k/uL Lymphocytes # (1.0-4.8) k/uL Monocytes # (0-1.0) k/uL Eosinophils # (0-0.7) k/uL Basophils # (0-0.2) k/uL Sodium (137-145) mmol/L Potassium (3.5-5.1) mmol/L Chloride (98-107) mmol/L Carbon Dioxide (22-30) mmol/L Anion Gap mmol/L BUN (7-17) mg/dL Creatinine (0.52-1.04) mg/dL Est GFR (CKD-EPI)AfAm (>60 ml/min/1.73 sqM) Est GFR (CKD-EPI)NonAf (>60 ml/min/1.73 sqM) Glucose (74-99) mg/dL Calcium (8.4-10.2) mg/dL Total Bilirubin (0.2-1.3) mg/dL AST (14-36) U/L ALT (4-34) U/L Alkaline Phosphatase (38-126) U/L Total Protein (6.3-8.2) g/dL Albumin (3.5-5.0) g/dL HCG, Quant mIU/mL Urine Color Yellow Urine Appearance Cloudy H (Clear) Urine pH 7.0 (5.0-8.0) Ur Specific [place] 1.021 (1.001-1.035) Urine Protein Trace H (Negative) Urine Glucose (UA) Negative (Negative) Urine Ketones Negative (Negative) Urine Blood Negative (Negative) Urine Nitrite Negative (Negative) Urine Bilirubin Negative (Negative) Urine Urobilinogen <2.0 (<2.0) mg/dL Ur Leukocyte Esterase Small H (Negative) Urine RBC 1 (0-5) /hpf Urine WBC 4 (0-5) /hpf Ur Squamous Epith Cells 14 H (0-4) /hpf Urine Bacteria Occasional H (None) /hpf Hyaline Casts 1 (0-2) /lpf Urine Mucus Rare H (None) /hpf Blood Type Blood Type Recheck Bld Type Recheck Status Antibody Screen Spec Expiration Date Disposition Clinical Impression: Ectopic Disposition: ADMITTED IP TO THIS [facility] Is patient prescribed a controlled substance at d/c from ED?: No Referrals: None,Stated [Primary Care Provider] - 1-2 days Time of Disposition: 09:28
[2021-09-02 07:11] LABS: Basophils % (A) 0 %; Eosinophils # (A) 0.1 k/uL (0-0.7); Eosinophils % (A) 1 %; HCT 37.8 % (34.0-46.0); HGB 12.1 gm/dL (11.4-16.0); Lymphocytes # (A) 1.6 k/uL (1.0-4.8); Lymphocytes % (A) 17 %; MCH 30.4 pg (25.0-35.0); Mean Platelet Volume 6.8; Monocytes # (A) 0.8 k/uL (0-1.0); Monocytes % (A) 8 %; Neutrophils # (A) 6.8 k/uL (1.3-7.7); Neutrophils % (A) 73 %; Platelet Count 333 k/uL (150-450); RBC 3.98 m/uL (3.80-5.40); WBC 9.4 k/uL (3.8-10.6)
[2021-09-02 07:22] LABS: ALT 64 U/L (4-34); African American GFR (CKD) >90 (>60 ml/min/1.73 sqM); Albumin 4.3 g/dL (3.5-5.0); Anion Gap 8 mmol/L; Blood Urea Nitrogen 7 mg/dL (7-17); Calcium 9.7 mg/dL (8.4-10.2); Carbon Dioxide 22 mmol/L (22-30); Chloride 106 mmol/L (98-107); Glucose 90 mg/dL (74-99); Non-African American GFR(CKD) >90 (>60 ml/min/1.73 sqM); Sodium 136 mmol/L (137-145); Total Bilirubin 0.6 mg/dL (0.2-1.3); Total Protein 7.6 g/dL (6.3-8.2)
[2021-09-02 07:23] LABS: AST 44 U/L (14-36); Alkaline Phosphatase 36 U/L (38-126); Potassium 4.5 mmol/L (3.5-5.1)
[2021-09-02 08:06] LABS: Appearance,Urine Cloudy (Clear); Bacteria,Urine Occasional /hpf; Bilirubin,Urine Negative (Negative); Blood,Urine Negative (Negative); Color,Urine Yellow; Glucose,Urine (UA) Negative (Negative); Hyaline Casts,Urine 1 /lpf (0-2); Ketones,Urine Negative (Negative); Leukocyte Esterase,Urine Small (Negative); Mucus,Urine Rare /hpf; Nitrite,Urine Negative (Negative); Protein,Urine Trace (Negative); RBC,Urine 1 /hpf (0-5); Specific Gravity,Urine 1.021 (1.001-1.035); Squamous Epithelial Cell,Urine 14 /hpf (0-4); Urobilinogen,Urine <2.0 mg/dL (<2.0); WBC,Urine 4 /hpf (0-5)
[2021-09-02 08:11] LABS: HCG,Quantitative Serum 29319.2 mIU/mL
--- NOTE | 2021-09-02 08:37 | US ---
EXAMINATION TYPE: Transabdominal DATE OF EXAM: 09/02/2021 7:55 AM COMPARISON: NONE CLINICAL HISTORY: pain. EC patient with pelvic pain today ( mainly right sided); ; smoker . Posit sonny beta-hCG. EXAM PERFORMED: Transvaginal (TV) and Transabdominal (TA) EXAM MEASUREMENTS: GESTATIONAL AGE / DATING Physician Established: Not yet established Dates by LMP: (8 weeks/1 day) EDC: 04/13/2022 Dates by First Scan: No previous. Dates by Current Scan: No IUP seen with possible ectopic in right ovary MATERNAL ANATOMY Uterus: 10.4 x 8.0 x 4.9cm; superior endometrium has 2 hypoechoic areas suggesting decidual casts; sm all Nabothian Cyst seen in cervix. Right Ovary: 7.6 x 6.2 x 3.0cm by TV US ; hyperechoic, complex mass with peripheral color flow is see n compared to ovarian tissue suggests ectopic = 5.8 x 2.5 x 3.0cm and is imaged both TA and TV US. Possible corpus luteum of noted lateral right ovary with peripheral ring of color f low = 2.5 x 2.3 x 2.5cm. Left Ovary: 3.7 x 2.4 x 2.7cm Post CDS / Adnexa: hypoechoic, solid oval area in posterior cul de sac noted = 6.0 x 5.5 x 2.6cm is possible blood product with adjacent free fluid. Presence of free fluid:small amount noted medial to right ovarian mass effect GESTATION / SURVEY Date of LMP: 07/07/21 Beta HcG (if available): Quantitative pending. Heterogeneous anteverted uterus. Endometrium fairly indistinct measures approximately 18 mm in thickn ess. Technologist herman two tiny thin-walled anechoic areas towards the superior endometrium measurin g 9 x 5 x 6 mm and 5 x 2 x 6 mm. These are too small to characterize as definitive gestational sacs, no surrounding decidual reaction noted. No yolk sac or pole identified. Small amount free fluid is seen in the right pelvis adjacent to right ovary. Left ovary appears normal in size with peripheral follicles. Right ovary adnexa has heterogeneous enl arged mass with peripheral vascularity, there is suggestion of oval anechoic area could reflect gesta tional sac and pole. No heart tones identified. No definitive normal-appearing right ovar y seen. IMPRESSION: Findings worrisome for right-sided ectopic given presence of right adnexal mass and small amount free fluid in the right pelvis without visualized intrauterine . Clinical Correlation should be made with beta hCG value and last known menstrual period. Differential includes too early to visualize intrauterine and spontaneous with right adnexal or ovarian lesion though this is felt less likely. .
[2021-09-02] MEDS ORDERED: ONDANSETRON 4 MG/2 ML VIAL IVP PRN (09:27)
[2021-09-02] MEDS ORDERED: NALOXONE 0.4 MG/ML 1 ML VIAL IV PRN (09:27)
[2021-09-02] MEDS ORDERED: MORPHINE SULFATE 4 MG/ML SYRINGE IV PRN (09:27)
[2021-09-02] MEDS ORDERED: SODIUM CHLORIDE 0.9% 1,000 ML IV SCH (09:30)
--- NOTE | 2021-09-02 09:51 | P.HPOB ---
History of Present Illness H&P Date: 09/02/21 Chief Complaint: Severe right lower quadrant pain This is a 26-year-old female 2 para 1 with a last menstrual period of 07/07/2021, approximately 8 weeks who presented with severe right lower quadrant abdominal pain that began at 5 AM this morning. She states the double her over and she immediately came to the emergency room. She denies any vaginal bleeding. She was scheduled to see me in the office for her first visit on September 15. She was given some pain medication in the ER and feels somewhat better now. Pelvic ultrasound showed a complex mass in the right adnexa measuring 5.8 x 2.5 x 3 cm and an area within the cul-de-sac measuring 6 x 5 x 2.6 cm possible blood clot. The area within the right adnexa is suspicious for a sac with a pole with no heart rate noted. Radiologist states probable right ectopic . Her beta hCG level is 29,000 and her hemoglobin is stable at 12.1. OB history: . History of 1 vaginal delivery in 2015 Gynecologic history: No history of sexually transmitted diseases. Social history: She is single. She works in a factory. Review of Systems Constitutional: Denies chills, Denies fever Eyes: denies blurred vision, denies pain Ears, nose, mouth and throat: Denies headache, Denies sore throat Cardiovascular: Denies chest pain, Denies shortness of breath Respiratory: Denies cough Gastrointestinal: Reports abdominal pain (Right lower quadrant) Genitourinary: Reports pelvic pain, Reports , Denies abnormal vaginal bleeding Musculoskeletal: Denies myalgias Integumentary: Denies pruritus, Denies rash Neurological: Denies numbness, Denies weakness Psychiatric: Reports anxiety, Reports depression Past Medical History Past Medical History: No Reported History History of Any Multi-Drug Resistant Organisms: None Reported Past Surgical History: No Surgical Hx Reported Additional Past Anesthesia/Blood Transfusion Reaction / Comment(s): no transf. hx Past Psychological History: Anxiety, Bipolar, Depression Smoking Status: Current every day smoker Past Alcohol Use History: Occasional Additional Past Alcohol Use History / Comment(s): History of alcohol abuse. No current alcohol use. Was in [place] for detox in 2020 Past Drug Use History: Opiates (Patient states she took a bunch of pills that included opiates in September 2020 but didn't know what she was taking.) - Past Family History Father Family Medical History: No Reported History Medications and Allergies Home Medications Medication Instructions Recorded Confirmed Type Pnv,Calcium 72/Iron/Folic Acid 1 tab PO DAILY 09/02/21 09/02/21 History [ Plus Tablet] Allergies Allergy/AdvReac Type Severity Reaction Status Date / Time Penicillins Allergy Rash/Hives Verified 09/02/21 07:11 red dye Allergy Hallucinati Verified 09/02/21 07:11 ons Exam Osteopathic Statement: *. No significant issues noted on an osteopathic structural exam other than those noted in the History and Physical/Consult. Vital Signs Temp Pulse Resp BP Pulse Ox 09/02/21 09:01 77 17 96/59 100 09/02/21 05:33 98.1 F 89 18 97/60 100 Intake and Output 09/01/21 09/02/21 09/02/21 22:59 06:59 14:59 Other: Weight 47.627 kg Gen.: Well-developed well-nourished female in mild acute distress. HEENT: Within normal limits Heart: Regular rate and rhythm Lungs: Clear to auscultation bilaterally Abdomen: Soft, tender in her lower abdomen all the way across. Pelvic exam uterus is anteverted and slightly enlarged, tender, right adnexa feels full and is tender to touch. Left adnexa is less tender with no masses palpated Extremities: Negative Homans Results Result Diagrams: 09/02/21 06:37 09/02/21 06:37 Abnormal Lab Results - Last 24 Hours (Table) 09/02/21 09/02/21 Range/Units 06:37 07:45 Sodium 136 L (137-145) mmol/L Creatinine 0.43 L (0.52-1.04) mg/dL AST 44 H (14-36) U/L ALT 64 H (4-34) U/L Alkaline Phosphatase 36 L (38-126) U/L Urine Appearance Cloudy H (Clear) Urine Protein Trace H (Negative) Ur Leukocyte Esterase Small H (Negative) Ur Squamous Epith Cells 14 H (0-4) /hpf Urine Bacteria Occasional H (None) /hpf Urine Mucus Rare H (None) /hpf Assessment and Plan Assessment: Probable right ectopic (1) Abdominal pain Current Visit: Yes Status: Acute Code(s): R10.9 - UNSPECIFIED ABDOMINAL PAIN SNOMED Code(s): 35194363 (2) Ectopic Current Visit: Yes Status: Acute Code(s): O00.90 - UNSPECIFIED ECTOPIC WITHOUT INTRAUTERINE SNOMED Code(s): 09937446 Plan: Admission for ectopic . We will immediately go to operating room. Patient was counseled regarding exploratory laparotomy with possible right salpingectomy, possible right salpingectomy, and possible right oophorectomy. Patient is counseled regarding risks and benefits of surgery including potential need for blood transfusion. I have discussed the risks, benefits, and alternative therapies for the above- mentioned procedure and for both sedation/anesthesia as well as necessary blood products administration, if indicated, as they pertain to this patient. The patient has indicated her understanding and acceptance of the risks and procedures discussed.
[2021-09-02] MEDS ORDERED: LACTATED RINGERS 1,000 ML IV ONE ×3 (10:18→12:34)
[2021-09-02] MEDS ORDERED: MIDAZOLAM 2 MG/2 ML VIAL ONE (10:45)
[2021-09-02] MEDS ORDERED: HYDROmorphone (PF) 1 MG/ML ONE (10:45)
[2021-09-02] MEDS ORDERED: SUCCINYLCHOLINE CHLORIDE 100 MG/5 ML SYR IV ONE (10:45)
[2021-09-02] MEDS ORDERED: fentaNYL (PF) 50 MCG/ML 2 ML AMP ONE (10:45)
[2021-09-02] MEDS ORDERED: NEOSTIGMINE 1 MG/ML 10 ML VIAL ONE (10:45)
[2021-09-02] MEDS ORDERED: ROCURONIUM 10 MG/ML (5 ML VIAL) IV ONE (10:45)
[2021-09-02] MEDS ORDERED: PROPOFOL 10 MG/ML 20 ML VIAL IV ONE (10:45)
[2021-09-02] MEDS ORDERED: LIDOCAINE 1% INJ 10MG/ML (20 ML MDV) ONE (10:45)
[2021-09-02] MEDS ORDERED: GLYCOPYRROLATE 0.2 MG/ML 2 ML VIAL ONE (10:45)
[2021-09-02] MEDS ORDERED: ePHEDrine 50 MG/ML 1 ML AMP ONE (10:45)
[2021-09-02] MEDS ORDERED: WATER FOR INJECTION, STERILE 10 ML VIAL IV ONE (10:45)
[2021-09-02] MEDS ORDERED: CLINDAMYCIN 900 MG in DEXTROSE 5% IN WATER 50 ML IVPB STA ×2 (10:50)
--- NOTE | 2021-09-02 11:46 | P.OP ---
Date of Procedure: 09/02/21 Preoperative Diagnosis: Probable right tubal ectopic Postoperative Diagnosis: Right tubal ectopic Procedure(s) Performed: Exploratory laparotomy Right partial salpingectomy with removal of ectopic Evacuation of blood clot from pelvis Anesthesia: SHANE Surgeon: Glenis Fishman Estimated Blood Loss (ml): 200 Pathology: other (Portion of right fallopian tube with ectopic ) Condition: stable Disposition: floor Indications for Procedure: This is a 26-year-old female 2 para 1 who presented to the emergency room with acute right lower quadrant pain that began at 5 AM this morning. Please see history and physical for details the patient admission. Ultrasound showed a complex area within the right adnexa that appeared to be an ectopic with a large amount of clot noted behind the uterus. Operative Findings: Right tubal ectopic with a large amount of clot noted in the posterior cul-de-sac. Tube was noted to be intact but very dilated. Left fallopian tube appeared to be normal in caliber however it did appear to have the fimbriated in slightly adherent to the left ovary. Both ovaries appeared normal. Description of Procedure: The patient is taken to the operating room where she is placed in the dorsal supine position area and she is prepped and draped in the normal sterile fashion including the Wolfe catheter insertion. A small Pfannenstiel skin incision was made with a scalpel. A second knife was used to carry the incision down to the underlying layer of fascia. The fascia was nicked in the midline with a scalpel and then extended laterally bilaterally with Stock scissors. The superior aspect of the fascial incision was grasped with 2 Carmen clamps and elevated and dissected off the underlying rectus muscle in the midline with Stock scissors. The inferior aspect of the fascial incision was grasped with Carmen clamps, elevated, and dissected off the underlying rectus muscle in the midline with Stock scissors. Next the peritoneum was tented up with 2 hemostats and entered sharply with the scalpel. Blood clot was noted immediately and a guarded suction was placed within the peritoneal cavity. The peritoneal layer was extended superiorly and inferiorly with Metzenbaum scissors. Next the remaining blood clot was removed with hands and placed into a basin. Next the bowels were packed with a 3 yard moist laparotomy sponge. Inspection of the pelvic contents revealed a very dilated right fallopian tube with obvious ectopic noted within. The fallopian tube was brought up to the incision and then entered with Bovie cautery. The ectopic was removed with a hemostat and forcep. There was still noted to be quite a bit of placental type tissue within the tube and I was unable to get all the tissue out. The edges of the tube were continuing to bleed. The decision was then made to remove this portion of the tube since it was not viable. 2 Pablito clamps were placed on either side of the ectopic along the tube and mesosalpinx. The knuckle of tube was then removed with Metzenbaum scissors. The remaining pedicles were sutured with 0 Vicryl suture in interrupted [id number] stitches. Excellent hemostasis was noted. Copious irrigation was carried out with warm saline. Good hemostasis was noted throughout. The left fallopian tube did appear to be normal in caliber however the fimbriated end did appear to be slightly adherent to the ovary on the left side. No other abnormalities were seen. All sponges were removed from the abdomen. All sponge counts were correct. Next the peritoneum was closed with 0 Vicryl suture in a running fashion. The muscle layer was reapproximated with 0 Vicryl suture in interrupted fashion. The fascial layer was then closed with 0 PDS suture with 2 sutures meeting in the midline and the knots buried on either side and in the midline. Next the subcutaneous tissue was closed with 3-0 Vicryl suture in a running fashion. Skin was then closed with huan. All sponge and needle counts are correct. The patient is then taken to recovery room in stable condition.
[2021-09-02 12:06] VITALS: RESP 16
[2021-09-02] MEDS ORDERED: HYDROmorphone 0.5 MG/0.5 ML SYRINGE IVP ONE (12:23)
[2021-09-02] MEDS ORDERED: ZOLPIDEM 5 MG TAB PO PRN (13:03)
[2021-09-02] MEDS ORDERED: KETOROLAC 30 MG/ML 1 ML VIAL IVP PRN (13:03)
[2021-09-02] MEDS ORDERED: diphenhydrAMINE 50 MG/ML 1 ML VIAL IVP PRN (13:03)
[2021-09-02] MEDS ORDERED: SIMETHICONE 80 MG CHEWABLE PO PRN (13:03)
[2021-09-02] MEDS ORDERED: HYDROmorphone PCA 10 MG/50 ML BAG IV PRN (13:03)
[2021-09-02] MEDS ORDERED: METOCLOPRAMIDE 5 MG/ML 2 ML VIAL IVP PRN (13:03)
[2021-09-02] MEDS ORDERED: LACTATED RINGERS 1,000 ML IV SCH (14:30)
[2021-09-02] MEDS: SENNOSIDES-DOCUSATE SODIUM 1 EACH TAB PO SCH (21:16)
[2021-09-03 06:31] LABS: Basophils % (A) 0 %; Eosinophils # (A) 0.1 k/uL (0-0.7); Eosinophils % (A) 1 %; HCT 32.8 % (34.0-46.0); HGB 10.6 gm/dL (11.4-16.0); Lymphocytes # (A) 1.5 k/uL (1.0-4.8); Lymphocytes % (A) 17 %; MCH 30.5 pg (25.0-35.0); MCHC 32.3 g/dL (31.0-37.0); MCV 94.7 fL (80.0-100.0); Monocytes # (A) 0.8 k/uL (0-1.0); Monocytes % (A) 9 %; Neutrophils # (A) 6.4 k/uL (1.3-7.7); Neutrophils % (A) 72 %; Platelet Count 277 k/uL (150-450); RBC 3.47 m/uL (3.80-5.40); RDW 13.1 % (11.5-15.5); WBC 8.9 k/uL (3.8-10.6)
[2021-09-03] MEDS ORDERED: HYDROcodone/APAP 5-325MG 1 EACH TAB PO PRN (08:49)
--- NOTE | 2021-09-03 08:49 | P.PN ---
Subjective Progress Note Date: 09/03/21 Principal diagnosis: Status post exploratory laparotomy with right partial salpingectomy due to ectopic postoperative day #1 Patient states she has some nausea but no vomiting. She has ambulated and does feel a little bit dizzy sometimes. Her pain is fairly well controlled with her PHYSICIAN CODING SPECIALIST pump. She has not passed flatus or bowel movement yet. She has been up and has urinated. Objective - Vital Signs Vital signs: Vital Signs Temp 97.6 F 09/02/21 15:15 Pulse 63 09/02/21 15:15 Resp 16 09/02/21 15:15 BP 95/56 09/02/21 15:15 Pulse Ox 99 09/02/21 14:15 Intake & Output 09/02/21 09/03/21 09/03/21 18:59 06:59 18:59 Intake Total 1906 Output Total 280 1700 Balance 1626 -1700 Weight 47.627 kg Intake: IV 1906 Output: Urine 80 1700 Estimated Blood Loss 200 Other: # Voids 1 - Constitutional General appearance: Present: no acute distress - Gastrointestinal Gastrointestinal Comment(s): Incision is clean dry and intact with huan in place. General gastrointestinal: Present: normal bowel sounds, tenderness (Mild tenderness around her incision) - Musculoskeletal Musculoskeletal Comment(s): Negative Homans bilaterally - Labs CBC & Chem 7: 09/03/21 06:04 09/02/21 06:37 Labs: Abnormal Lab Results - Last 24 Hours (Table) 09/03/21 Range/Units 06:04 RBC 3.47 L (3.80-5.40) m/uL Hgb 10.6 L (11.4-16.0) gm/dL Hct 32.8 L (34.0-46.0) % Assessment and Plan Assessment: Status post exploratory laparotomy with right partial salpingectomy due to ectopic postoperative day #1 (1) Abdominal pain Current Visit: Yes Status: Acute Code(s): R10.9 - UNSPECIFIED ABDOMINAL PAIN SNOMED Code(s): 21044540 (2) Ectopic Current Visit: Yes Status: Acute Code(s): O00.90 - UNSPECIFIED ECTOPIC WITHOUT INTRAUTERINE SNOMED Code(s): 16346454 Plan: Will switch from PHYSICIAN CODING SPECIALIST pump to oral pain medications today. Patient is encouraged to ambulate and may shower. Will alternate ibuprofen and [place] for pain control.
[2021-09-03] MEDS: SENNOSIDES-DOCUSATE SODIUM 1 EACH TAB PO SCH ×2 (09:15→20:00)
[2021-09-03] MEDS: IBUPROFEN 600 MG TAB PO PRN ×3 (09:42→22:26)
[2021-09-03] MEDS: HYDROcodone/APAP 7.5-325MG 1 EACH TAB PO PRN ×2 (12:41→19:38)
[2021-09-04] MEDS: HYDROcodone/APAP 7.5-325MG 1 EACH TAB PO PRN ×2 (01:45→08:09)
[2021-09-04] MEDS: IBUPROFEN 600 MG TAB PO PRN (05:00)
[2021-09-04] MEDS: SENNOSIDES-DOCUSATE SODIUM 1 EACH TAB PO SCH (08:08)
[2021-09-04 08:11] VITALS: BP 111/69; PULSE 76; TEMP 98.8
--- NOTE | 2021-09-04 08:37 | P.DS ---
Providers Date of admission: 09/03/21 12:07 Expected date of discharge: 09/04/21 Attending physician: Glenis Fishman Primary care physician: Stated None - Discharge Diagnosis(es) (1) Abdominal pain Current Visit: Yes Status: Acute (2) Ectopic Current Visit: Yes Status: Acute Hospital Course: This is a 26-year-old female 2 para 1 who presented to the emergency room with acute right lower quadrant abdominal pain. She was diagnosed with probable right ectopic . She underwent an exploratory laparotomy with right partial salpingectomy and evacuation of blood clot in the pelvis for ectopic on 09/02/2021. Her postoperative course has been fairly nor mal. She is passing some flatus but no bowel movement yet. Her pain is fairly well controlled with ibuprofen and [place]. She is tolerating regular diet. Vital signs are stable. Abdomen is soft with positive bowel sounds 4. Incision is clean dry and intact with huan in place. Extremities show negative Homans. Impression is status post the above noted procedure postoperative day #2. Plan is to discharge home today. Routine postoperative instructions are given. [place] will be removed and Steri-Strips placed prior to discharge. She will be given a prescription for ibuprofen and [place] to alternate. She is counseled regarding opioid use and has signed a consent form. She will follow up in the office in approximately one week for a postoperative check. She is advised to call the office if she has any further questions or concerns prior to her postoperative time. Procedures: Exploratory laparotomy with right partial salpingectomy due to ectopic and evacuation of blood clot from the pelvis on 09/02/2021 Patient Condition at Discharge: Stable Plan - Discharge Summary New Discharge Prescriptions: New HYDROcodone/APAP 7.5-325MG [[place] 7.5-325] 1 each PO Q6HR PRN #28 tab PRN Reason: Severe Pain Ibuprofen [Motrin] 600 mg PO Q6HR PRN #60 tab PRN Reason: Mild Discomfort No Action Pnv,Calcium 72/Iron/Folic Acid [ Plus Tablet] 1 tab PO DAILY Discharge Medication List Pnv,Calcium 72/Iron/Folic Acid [ Plus Tablet] 1 tab PO DAILY 09/02/21 [History] HYDROcodone/APAP 7.5-325MG [[place] 7.5-325] 1 each PO Q6HR PRN #28 tab 09/04/21 [Rx] Ibuprofen [Motrin] 600 mg PO Q6HR PRN #60 tab 09/04/21 [Rx] Follow up Appointment(s)/Referral(s): None,Stated [Primary Care Provider] - 1-2 days Glenis Fishman DO [Doctor of Osteopathic Medicine] - 1 Week Activity/Diet/Wound Care/Special Instructions: Activity as tolerated. Diet as tolerated. May shower, but no tub baths for 1 week. No intercourse for 6 weeks. No heavy lifting. No driving while on narcotic pain medication. Discharge Disposition: HOME SELF-CARE
== END 2021-09-04 09:00 | disposition home or self-care (01) | DRG 819 ==
LOC: EC 05:28 → 4FBP 09:28 → OBSVTOIN 09-03 12:07
PROVIDERS: ADMIT Obstetrics & Gynecology; ATTEND Obstetrics & Gynecology
PROC: 0UC90ZZ Extirpation of Matter from Uterus, Open Approach (ICD-10-PCS; 2021-09-02)
PROC: 0UB50ZZ Excision of Right Fallopian Tube, Open Approach (ICD-10-PCS; principal; 2021-09-02 14:05)
DX: O00.101 Right tubal pregnancy without intrauterine pregnancy (principal); F17.210 Nicotine dependence, cigarettes, uncomplicated; F31.9 Bipolar disorder, unspecified; F41.9 Anxiety disorder, unspecified; Z20.822 Contact with and (suspected) exposure to COVID-19; Z3A.08 8 weeks gestation of pregnancy; Z88.0 Allergy status to penicillin; Z91.018 Allergy to other foods
CPT/HCPCS: 36415; 76801; 76817; 80053; 81001; 84702; 85025; 86850; 86900; 86901; 87635; 88305; 99285

== ENCOUNTER 2021-09-16 17:02 | Inpatient (IN) | payer BC, MEDICAID ==
[2021-09-16 17:09] VITALS: RESP 16
--- NOTE | 2021-09-16 17:28 | ED ---
General Adult HPI - General Chief complaint: Psychiatric Symptoms Stated complaint: EPS eval Time Seen by Provider: 09/16/21 17:12 Source: patient, RN notes reviewed, old records reviewed Mode of arrival: ambulatory Limitations: no limitations - History of Present Illness Initial comments: 26-year-old female presents for psychiatric evaluation. She did state her cousin that she did not want to live. She recently lost her grandmother who was very close to her. She's had thoughts of suicide. She is somewhat noncompliant with complete history. But she does state that she should be admitted to 3 W. She denies suicide attempt. She does admit to alcohol consumption. - Related Data Home Medications Medication Instructions Recorded Confirmed No Known Home Medications 09/16/21 09/16/21 Allergies Allergy/AdvReac Type Severity Reaction Status Date / Time Penicillins Allergy Rash/Hives Verified 09/16/21 17:38 red dye Allergy Hallucinati Verified 09/16/21 17:38 ons Review of Systems ROS Statement: Those systems with pertinent positive or pertinent negative responses have been documented in the HPI. ROS Other: All systems not noted in ROS Statement are negative. Past Medical History Past Medical History: No Reported History History of Any Multi-Drug Resistant Organisms: None Reported Past Surgical History: No Surgical Hx Reported Additional Past Surgical History / Comment(s): pt just had a baby removed out of her tubes 1 week ago- 09/16/21 Past Anesthesia/Blood Transfusion Reactions: No Reported Reaction Additional Past Anesthesia/Blood Transfusion Reaction / Comment(s): no transf. hx Past Psychological History: Anxiety, Bipolar, Depression Smoking Status: Current every day smoker Past Alcohol Use History: Abuse, Daily Past Drug Use History: None Reported - Past Family History Father Family Medical History: No Reported History General Exam Limitations: no limitations General appearance: alert, appears intoxicated Head exam: Present: atraumatic, normocephalic Eye exam: Present: normal appearance, PERRL ENT exam: Present: normal exam Neck exam: Present: normal inspection. Absent: tenderness, meningismus Respiratory exam: Present: normal lung sounds bilaterally. Absent: respiratory distress, wheezes Cardiovascular Exam: Present: regular rate, normal rhythm GI/Abdominal exam: Present: soft. Absent: distended, tenderness, guarding, rebound Extremities exam: Present: normal inspection, normal capillary refill. Absent: pedal edema Neurological exam: Present: alert, oriented X3, CN II-XII intact. Absent: motor sensory deficit Psychiatric exam: Present: depressed, flat affect, suicidal ideation Skin exam: Present: warm, dry, intact. Absent: cyanosis, diaphoretic Course Vital Signs 09/16/21 09/17/21 17:03 03:41 Temperature 99.7 F H Pulse Rate 114 H 95 Respiratory 16 16 Rate Blood Pressure 122/81 109/72 O2 Sat by Pulse 100 99 Oximetry - Reevaluation(s) Reevaluation #1: 09/16/21 17:27 Patient is intoxicated, awaiting sobriety and EPS evaluation. Reevaluation #2: 09/16/21 22:03 Patient care signed out at shift change to Dr. Yanez Medical Decision Making - Medical Decision Making By review of the medical record it appears patient was admitted for further psychiatric evaluation and treatment. - Lab Data Result diagrams: 09/18/21 07:07 09/18/21 07:07 Lab Results 09/17/21 Range/Units 01:35 Coronavirus (PCR) Not Detected (Not Detectd) Disposition Clinical Impression: Depression, Suicidal ideation, Alcohol intoxication Disposition: ADMITTED IP TO THIS HOSP Condition: Stable Is patient prescribed a controlled substance at d/c from ED?: No
[2021-09-16] MEDS ORDERED: LORazepam 1 MG TAB PO STA ×2 (20:50→22:44)
[2021-09-17] MEDS ORDERED: LORazepam 1 MG TAB PO STA (01:20)
[2021-09-17] MEDS ORDERED: HALOPERIDOL LACTATE 5 MG/ML 1 ML VIAL IM PRN (02:53)
[2021-09-17] MEDS ORDERED: MAG HYDROX/AL HYDROX/SIMETH 30 ML CUP PO PRN (02:53)
[2021-09-17] MEDS ORDERED: MAGNESIUM HYDROXIDE 2,400 MG/10 ML CUP PO PRN (02:53)
[2021-09-17] MEDS ORDERED: ACETAMINOPHEN TAB 325 MG TAB PO PRN (02:53)
[2021-09-17] MEDS ORDERED: haloperidoL 5 MG TAB PO PRN (05:03)
[2021-09-17] MEDS ORDERED: LORazepam 2 MG/ML INJ IM PRN (05:03)
[2021-09-17] MEDS: LORazepam 1 MG TAB PO PRN ×3 (06:55→22:57)
[2021-09-17] MEDS: NICOTINE 14MG/24HR PATCH TRANSDERM SCH (08:28)
--- NOTE | 2021-09-17 11:40 | P.HP ---
Psychiatric H&P - . H&P Date: 09/17/21 History & Physical: Allergies Allergy/AdvReac Type Severity Reaction Status Date / Time Penicillins Allergy Rash/Hives Verified 09/16/21 17:38 red dye Allergy Hallucinati Verified 09/16/21 17:38 ons Vital Signs Temp 98.1 F 09/17/21 05:03 Pulse 113 H 09/17/21 05:03 Resp 16 09/17/21 05:03 BP 115/79 09/17/21 05:03 Pulse Ox 98 09/17/21 05:03 Intake & Output 09/16/21 09/17/21 09/17/21 18:59 06:59 18:59 Weight 47.627 kg 45.841 kg Laboratory Last Values Coronavirus (PCR) Not Detected (Not Detectd) 09/17/21 01:35 09/17/21 11:40 IDENTIFYING DATA: Patient is a single, employed, 26-year-old mixed raced female who presented to the emergency department for suicidal ideation the context of alcohol intoxication. HPI: Patient presented to the hospital on 09/16/2022, brought in by her cousin after the patient was endorsing suicidal ideation and verbalizing suicidal threats while intoxicated. The patient does admit that when she is drinking she becomes very depressed and will verbalize wanting to end her life. She is however denying any current suicidal or homicidal ideation, intention, and/or plan. The patient does have a prior attempt at suicide by hanging a few years prior to this admission. The patient reports that she has been experiencing significant stressors over the past month. She states that her grandmother whom she was close with past away on the first of this month. Furthermore, the patient had a ectopic and had to undergo surgery a week ago. In regards to depressive symptoms, the patient is currently not endorsing any significant symptoms of depression at this time. She is denying any anhedonia, lack of motivation, issues regarding her sleep, issues regarding her appetite, hopelessness, helplessness, or any suicidal ideation. She does not endorse any significant symptoms of bipolar disorder. She denies any periods of excessive energy, mood lability, euphoria, or grandiosity. The patient denies any auditory or visual hallucinations. She reports no paranoia or other delusions. The patient does report that she has a significant history of alcohol use disorder. She reports that prior to this admission, she has been drinking approximately a pint to 2 pints of liquor per day for the last 3 days. She does report that she smokes 2-3 cigarettes per day. She denies any illicit drug use but reports a history of cocaine use in the distant past. She reports no marijuana use. The patient has been to rehab for her alcohol use disorder twice in the past with the last time being in 2018. PAST PSYCHIATRIC HISTORY: Patient states that she has been previous diagnosed with depression and anxiety. She does report that she has been prescribed antidepressants in the past however is not currently taking any. She states that she has been fine off any antidepressants. The patient reports that she has had 6 or 7 prior inpatient psychiatric hospitalizations with the last time being 2 years ago this unit. Patient denies any psychiatric outpatient follow- up. The patient reports one prior attempt at suicide by hanging a few years ago. PMH: Past Medical History: No Reported History History of Any Multi-Drug Resistant Organisms: None Reported Past Surgical History: No Surgical Hx Reported Additional Past Surgical History / Comment(s): pt just had a baby removed out of her tubes 1 week ago- 09/16/21 Past Anesthesia/Blood Transfusion Reactions: No Reported Reaction Additional Past Anesthesia/Blood Transfusion Reaction / Comment(s): no transf. hx Past Psychological History: Anxiety, Bipolar, Depression Smoking Status: Current every day smoker Past Alcohol Use History: Abuse, Daily Past Drug Use History: None Reported ALLERGIES: Penicillins, red dye CHEMICAL DEPENDENCY HISTORY: as per HPI FAMILY PSYCHIATRIC/SUBSTANCE USE HISTORY: No reported psychiatric history. The patient reports that her mother was an alcoholic. SOCIAL HISTORY: Patient was born in [place], [place] and raised in [place], [place]. She currently lives with her 5-year-old child's father and her aunt. She states that she is single. She graduated high school. 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 MENTAL STATUS EXAM: General Appearance: Patient appears to be stated age is alert, directable, and attempts to cooperate. Patient appears to have fair hygiene and grooming. Multiple tattoos. The patient has her nails done. Behavior: Patient is seated without any agitated behavior. Psychomotor activity appears normal. Speech: Patient's speech is fluent and nonpressured. Mood/Affect: Patient reports their mood is "feeling okay," affect is congruent and constricted. Suicidality/Homicidality: Patient denies having any homicidal ideation intent or plan. Denies any suicidal ideations intent or plan Perceptions: Patient denies any visual hallucinations and denies any auditory hallucinations Though content/process: There is no evidence of any delusional thought content and thought process is linear and goal-directed. Memory and concentration: AOX3, grossly intact for the purposes of this session. Can spell "WORLD" backwards Judgment and insight: Fair STRENGTHS/WEAKNESSES: Strengths that the patient has a supportive family. Weaknesses the patient engages in heavy alcohol use and is dealing with acute bereavement. INTELLECT: average IMPRESSIONS: Acute Bereavement Alcohol use disorder, binge type PLAN: -Patient is admitted under voluntary status to [facility] for stabilization of psychiatric symptoms and safety. Patient signed adult voluntary form and medication consent and is placed in patient's chart. -Medications : Will start patient on Librium 10 mg by mouth twice a day for alcohol withdrawal -Ativan and Haldol PRN for agitation/aggression -CIWA protocol with Ativan PRN for ETOH withdrawal -Patient was counselled on substance abuse and desired to cut back on use -Patient was informed of the risks, benefits and side effects of the medication and patient verbally consented to taking the medications. Patient signed med consent form and was placed in chart. -Internal Medicine consult to perform medical evaluation and physical. -NRT - nicotine patch -SW on board for discharge planning. Encourage patient to participate in groups to work on coping skills. 09/17/21 11:40
[2021-09-17 11:42] LABS: Appearance,Urine Cloudy (Clear); Bilirubin,Urine Negative (Negative); Blood,Urine Negative (Negative); Color,Urine Yellow; Glucose,Urine (UA) Negative (Negative); Ketones,Urine 1+ (Negative); Leukocyte Esterase,Urine Moderate (Negative); Mucus,Urine Occasional /hpf; Nitrite,Urine Negative (Negative); Protein,Urine 1+ (Negative); RBC,Urine 2 /hpf (0-5); Specific Gravity,Urine 1.029 (1.001-1.035); Squamous Epithelial Cell,Urine 25 /hpf (0-4); Urobilinogen,Urine <2.0 mg/dL (<2.0); WBC,Urine 4 /hpf (0-5)
--- NOTE | 2021-09-18 00:39 | P.MDCNMH ---
History of Present Illness H&P Date: 09/17/21 Chief Complaint: medical eval 26 year old female presented due to suicidal ideation , currently denies any suicidal thoughts . she denies any medical concerns at this time, she denies fever, chills, cough, chest pain trouble breathig, abd pain , nausea or vomiting patient denies any tobacco smoking, drug abuse, or alcohol Review of Systems Pertinent positives as noted in HPI. All other systems were reviewed and are negative Past Medical History Past Medical History: No Reported History History of Any Multi-Drug Resistant Organisms: None Reported Past Surgical History: No Surgical Hx Reported Additional Past Surgical History / Comment(s): pt just had a baby removed out of her tubes 1 week ago- 09/16/21 Past Anesthesia/Blood Transfusion Reactions: No Reported Reaction Additional Past Anesthesia/Blood Transfusion Reaction / Comment(s): no transf. hx Past Psychological History: Anxiety, Bipolar, Depression Smoking Status: Current every day smoker Past Alcohol Use History: Abuse, Daily Past Drug Use History: None Reported - Past Family History Father Family Medical History: No Reported History Medications and Allergies Home Medications Medication Instructions Recorded Confirmed Type No Known Home Medications 09/16/21 09/16/21 History Allergies Allergy/AdvReac Type Severity Reaction Status Date / Time Penicillins Allergy Rash/Hives Verified 09/16/21 17:38 red dye Allergy Hallucinati Verified 09/16/21 17:38 ons Physical Exam Vitals: Vital Signs Temp Pulse Pulse Resp BP BP Pulse Ox 09/17/21 05:03 98.1 F 113 H 16 115/79 98 09/17/21 03:41 95 16 109/72 99 Constitutional: No acute distress, conversant, pleasant Eyes: Anicteric sclerae, moist conjunctiva, Pupils equal round reactive to light ENMT: NC/AT Oropharynx clear, no erythema, or exudates Neck: Supple, FROM, no masses, or JVD No carotid bruits No thyromegaly Lungs: Clear to auscultation Clear to percussion Normal respiratory effort, no accessory muscle use Cardiovascular: Heart regular in rate and rhythm, No murmurs, gallops, or rubs No peripheral edema Abdominal: Soft Nontender, no guarding, rebound or rigidity Abdomen moving with respiration Normoactive bowel sounds No hepatomegaly, No splenomegaly No palpable mass No abdominal wall hernia noted Skin: Normal temperature, tone, texture, turgor No induration No subcutaneous nodules No rash, lesions No ulcers Extremities: No digital cyanosis No clubbing Pedal pulses intact and symmetrical Radial pulses intact and symmetrical No calf tenderness Psychiatric: Alert and oriented to person, place and time Neuro Muscles Strength 5/5 in all 4 extremities Sensation to light touch grossly present throughout Cranial nerves II-XII grossly intact No focal sensory deficits Lymphatics: no palpable cervical or supraclavicular , or inguinal lymph nodes Cranial Nerve Examination - Cranial Nerves Cranial Nerve II- Optic: Intact Cranial Nerve III- Oculomotor: Intact Cranial Nerve IV- Trochlear: Intact Cranial Nerve V- Trigeminal: Intact Cranial Nerve - Abducens: Intact Cranial Nerve VII- Facial: Intact Cranial Nerve VIII- Auditory: Intact Cranial Nerve IX- Glossopharyngeal: Intact Cranial Nerve X- Vagus: Intact Cranial Nerve XI- Accessory: Intact Cranial Nerve XII- Hypoglossal: Intact Results Labs: Abnormal Lab Results - Last 24 Hours (Table) 09/17/21 Range/Units 11:20 Urine Appearance Cloudy H (Clear) Urine Protein 1+ H (Negative) Urine Ketones 1+ H (Negative) Ur Leukocyte Esterase Moderate H (Negative) Ur Squamous Epith Cells 25 H (0-4) /hpf Urine Mucus Occasional H (None) /hpf Assessment and Plan Assessment: suicidal ideation anxiety management per psych follow up labs medically stable at this time Thank you for allowing us to participate in the care of this patient. We will follow peripherally. Do not hesitate to contact us with questions. Someone can be reached from the [facility] hospitalist group at all hours of the day at [phone].
[2021-09-18 06:50] VITALS: TEMP 98.7
[2021-09-18 08:18] LABS: Basophils % (A) 1 %; Eosinophils # (A) 0.2 k/uL (0-0.7); Eosinophils % (A) 4 %; HCT 42.8 % (34.0-46.0); HGB 13.5 gm/dL (11.4-16.0); Lymphocytes # (A) 1.6 k/uL (1.0-4.8); Lymphocytes % (A) 30 %; MCH 29.9 pg (25.0-35.0); MCHC 31.4 g/dL (31.0-37.0); MCV 95.3 fL (80.0-100.0); Mean Platelet Volume 6.9; Monocytes # (A) 0.4 k/uL (0-1.0); Monocytes % (A) 7 %; Neutrophils # (A) 2.9 k/uL (1.3-7.7); Neutrophils % (A) 56 %; Platelet Count 481 k/uL (150-450); RBC 4.49 m/uL (3.80-5.40); RDW 12.8 % (11.5-15.5); WBC 5.2 k/uL (3.8-10.6)
[2021-09-18 08:22] LABS: ALT 16 U/L (4-34); AST 25 U/L (14-36); African American GFR (CKD) >90 (>60 ml/min/1.73 sqM); Albumin 4.6 g/dL (3.5-5.0); Alkaline Phosphatase 70 U/L (38-126); Anion Gap 4 mmol/L; Blood Urea Nitrogen 10 mg/dL (7-17); Calcium 10.2 mg/dL (8.4-10.2); Carbon Dioxide 26 mmol/L (22-30); Chloride 105 mmol/L (98-107); Glucose 97 mg/dL (74-99); Non-African American GFR(CKD) >90 (>60 ml/min/1.73 sqM); Potassium 4.6 mmol/L (3.5-5.1); Sodium 135 mmol/L (137-145)
[2021-09-18] MEDS: NICOTINE 14MG/24HR PATCH TRANSDERM SCH (08:24)
[2021-09-18 08:25] VITALS: BP 109/76; PULSE 119
--- NOTE | 2021-09-18 12:26 | P.DS ---
Providers Date of admission: 09/17/21 02:38 Expected date of discharge: 09/18/21 Attending physician: Irwin Guaman MD Consults: 09/17/21 02:53 Consult Physician Routine Consulting Provider: Nina Cross Consult Reason/Comments: health physical Do you want consulting provider notified?: Yes Primary care physician: Stated None - Discharge Diagnosis(es) (1) Bereavement Status: Acute Priority: High (2) Alcohol use disorder, moderate, dependence Status: Chronic Priority: Medium Hospital Course: Admission HPI: Patient is a single, employed, 26-year-old mixed raced female who presented to the emergency department for suicidal ideation the context of alcohol intoxication. HPI: Patient presented to the hospital on 09/16/2022, brought in by her cousin after the patient was endorsing suicidal ideation and verbalizing suicidal threats while intoxicated. The patient does admit that when she is drinking she becomes very depressed and will verbalize wanting to end her life. She is however denying any current suicidal or homicidal ideation, intention, and/or plan. The patient does have a prior attempt at suicide by hanging a few years prior to this admission. The patient reports that she has been experiencing significant stressors over the past month. She states that her grandmother whom she was close with past away on the first of this month. Furthermore, the patient had a ectopic and had to undergo surgery a week ago. In regards to depressive symptoms, the patient is currently not endorsing any significant symptoms of depression at this time. She is denying any anhedonia, lack of motivation, issues regarding her sleep, issues regarding her appetite, hopelessness, helplessness, or any suicidal ideation. She does not endorse any significant symptoms of bipolar disorder. She denies any periods of excessive energy, mood lability, euphoria, or grandiosity. The patient denies any auditory or visual hallucinations. She reports no paranoia or other delusions. The patient does report that she has a significant history of alcohol use disorder. She reports that prior to this admission, she has been drinking approximately a pint to 2 pints of liquor per day for the last 3 days. She does report that she smokes 2-3 cigarettes per day. She denies any illicit drug use but reports a history of cocaine use in the distant past. She reports no marijuana use. The patient has been to rehab for her alcohol use disorder twice in the past with the last time being in 2018. Patient states that she has been previous diagnosed with depression and anxiety. She does report that she has been prescribed antidepressants in the past however is not currently taking any. She states that she has been fine off any antidepressants. The patient reports that she has had 6 or 7 prior inpatient psychiatric hospitalizations with the last time being 2 years ago this unit. Patient denies any psychiatric outpatient follow-up. The patient reports one prior attempt at suicide by hanging a few years ago. Hospital course: Upon admission to the unit patient was initially presenting as euthymic and appropriate however endorsed feeling overwhelmed due to numerous life stressors including the recent of her grandmother. Patient was however directable and agreeable to commence treatment. Patient got along well with other patients on the unit and followed unit protocol. Patient was compliant with the medications and denied any side effects throughout hospital course. The patient was started on Librium for management of acute alcohol withdrawal. Patient sp yady of her stressors and engaged in therapy both group and individual. Patient was also seen by medical team for history and physical exam. The patient displayed significant improvement in regards to her acute life stressors and became more future and goal oriented. She is desiring to continue treatment in the outpatient setting to follow-up with their outpatient therapist. She did not wish to start any medications. Librium was discontinued. On the day of discharge, the patient is not reporting any suicidal or homicidal ideation, intention, and/or plan. She is denying any auditory or visual hallucinations. She reports no paranoia or other delusions. The patient does have significant history of substance abuse was counseled at great length on abstaining from all substances including alcohol and marijuana. Prior to discharge, family meeting will be arranged by social worker aide to answer any questions and ensure safety. Mental status exam: General Appearance: Patient appears to be stated age is alert, pleasant, and cooperative. Patient is in no acute distress and has fair hygiene and grooming Behavior: Patient is calmly seated without any agitated behavior. Speech: Patient's speech is fluent and nonpressured. Mood/Affect: Patient reports their mood is "doing really good", affect is congruent and euthymic to bright. Suicidality/Homicidality: Patient denies having any suicidal or homicidal ideation intent or plan. Perceptions: Patient denies any auditory or visual hallucinations. Though content/process: There is no evidence of any delusional thought content and thought process is linear and goal-directed. more future oriented Memory and concentration: AOX3, grossly intact for the purposes of this session. Can spell "WORLD" backwards correctly. Judgment and insight: Improved with guarded prognosis Vital Signs Temp 98.7 F 09/18/21 06:44 Pulse 119 H 09/18/21 08:25 Resp 16 09/18/21 06:44 BP 109/76 09/18/21 08:25 Pulse Ox 98 09/17/21 05:03 Laboratory Results WBC 5.2 k/uL (3.8-10.6) 09/18/21 07:07 RBC 4.49 m/uL (3.80-5.40) 09/18/21 07:07 Hgb 13.5 gm/dL (11.4-16.0) 09/18/21 07:07 Hct 42.8 % (34.0-46.0) 09/18/21 07:07 MCV 95.3 fL (80.0-100.0) 09/18/21 07:07 MCH 29.9 pg (25.0-35.0) 09/18/21 07:07 MCHC 31.4 g/dL (31.0-37.0) 09/18/21 07:07 RDW 12.8 % (11.5-15.5) 09/18/21 07:07 Plt Count 481 k/uL (150-450) H 09/18/21 07:07 MPV 6.9 09/18/21 07:07 Neutrophils % 56 % 09/18/21 07:07 Lymphocytes % 30 % 09/18/21 07:07 Monocytes % 7 % 09/18/21 07:07 Eosinophils % 4 % 09/18/21 07:07 Basophils % 1 % 09/18/21 07:07 Neutrophils # 2.9 k/uL (1.3-7.7) 09/18/21 07:07 Lymphocytes # 1.6 k/uL (1.0-4.8) 09/18/21 07:07 Monocytes # 0.4 k/uL (0-1.0) 09/18/21 07:07 Eosinophils # 0.2 k/uL (0-0.7) 09/18/21 07:07 Basophils # 0.0 k/uL (0-0.2) 09/18/21 07:07 Sodium 135 mmol/L (137-145) L 09/18/21 07:07 Potassium 4.6 mmol/L (3.5-5.1) 09/18/21 07:07 Chloride 105 mmol/L (98-107) 09/18/21 07:07 Carbon Dioxide 26 mmol/L (22-30) 09/18/21 07:07 Anion Gap 4 mmol/L 09/18/21 07:07 BUN 10 mg/dL (7-17) 09/18/21 07:07 Creatinine 0.56 mg/dL (0.52-1.04) 09/18/21 07:07 Est GFR (CKD-EPI)AfAm >90 (>60 ml/min/1.73 sqM) 09/18/21 07:07 Est GFR (CKD-EPI)NonAf >90 (>60 ml/min/1.73 sqM) 09/18/21 07:07 Glucose 97 mg/dL (74-99) 09/18/21 07:[address] Glu mg/dL 100 09/18/21 07:07 Hemoglobin A1c 5.1 % (0.0-6.0) 09/18/21 07:07 Calcium 10.2 mg/dL (8.4-10.2) 09/18/21 07:07 Total Bilirubin 1.0 mg/dL (0.2-1.3) 09/18/21 07:07 AST 25 U/L (14-36) 09/18/21 07:07 ALT 16 U/L (4-34) 09/18/21 07:07 Alkaline Phosphatase 70 U/L (38-126) 09/18/21 07:07 Total Protein 8.0 g/dL (6.3-8.2) 09/18/21 07:07 Albumin 4.6 g/dL (3.5-5.0) 09/18/21 07:07 TSH 0.986 mIU/L (0.465-4.680) 09/18/21 07:07 Urine Color Yellow 09/17/21 11:20 Urine Appearance Cloudy (Clear) H 09/17/21 11:20 Urine pH 7.0 (5.0-8.0) 09/17/21 11:20 Ur Specific [place] 1.029 (1.001-1.035) 09/17/21 11:20 Urine Protein 1+ (Negative) H 09/17/21 11:20 Urine Glucose (UA) Negative (Negative) 09/17/21 11:20 Urine Ketones 1+ (Negative) H 09/17/21 11:20 Urine Blood Negative (Negative) 09/17/21 11:20 Urine Nitrite Negative (Negative) 09/17/21 11:20 Urine Bilirubin Negative (Negative) 09/17/21 11:20 Urine Urobilinogen <2.0 mg/dL (<2.0) 09/17/21 11:20 Ur Leukocyte Esterase Moderate (Negative) H 09/17/21 11:20 Urine RBC 2 /hpf (0-5) 09/17/21 11:20 Urine WBC 4 /hpf (0-5) 09/17/21 11:20 Ur Squamous Epith Cells 25 /hpf (0-4) H 09/17/21 11:20 Urine Mucus Occasional /hpf (None) H 09/17/21 11:20 Urine HCG, Qual Not Detected (Not Detectd) 09/17/21 11:20 Coronavirus (PCR) Not Detected (Not Detectd) 09/17/21 01:35 Impression: Acute bereavement Alcohol use disorder, binge type Plan: -Continue with discharge today as patient has improved and stabilized psychiatrically and is not currently an imminent threat to herself and/or others. Patient will remain at chronically elevated risk for harm to self and/or others due to her impulsivity and alcohol use. -Continue medications: No medications were initiated during this hospitalization. The patient was treated with supportive psychotherapy and motivational interviewing. -Patient was counseled on the need for medication compliance and appropriate follow-up at mental health and also primary care for medical issues. Patient verbalized understanding and agreed. -Social work to arrange for and conduct family meeting to ensure safety upon discharge and answer any questions/concerns. Social work also to arrange for patients follow up appointments with [facility] for psychiatric care along with follow up with primary care provider. -Patient counseled on abstaining from recreational drugs and marijuana and alcohol. Was informed/educated on the adverse effects on their physical and mental health. Patient verbally agreed and understood. Patient was offered substance abuse treatment however declined at this time. -Patient was instructed to return to the hospital or seek immediate medical care if their psychiatric or medical symptoms do worsen or reoccur. Allergies Allergy/AdvReac Type Severity Reaction Status Date / Time Penicillins Allergy Rash/Hives Verified 09/16/21 17:38 red dye Allergy Hallucinati Verified 09/16/21 17:38 ons Patient Condition at Discharge: Stable Plan - Discharge Summary Discharge Rx Participant: No New Discharge Prescriptions: No Action No Known Home Medications Discharge Medication List No Known Home Medications 09/16/21 [History] Follow up Appointment(s)/Referral(s): [facility] [Outside] - 09/29/21 12:30 pm (09/29/2021 @ 1:00PM with Mendy 09/29/2021 @ 12:30PM paperwork) [facility] [NON-STAFF] - 1 Week Patient Instructions/Handouts: Stress (DC), Relaxation and Meditation (DC) Activity/Diet/Wound Care/Special Instructions: Activity and diet as tolerated. Avoid the use of street drugs and alcohol. Take all medications as prescribed. When you are in need of refills on your medications please contact your medical provider and/or outpatient psychiatrist to have this done. Please go to scheduled outpatient appointment for aftercare treatment. If symptoms return or become worse, call the crisis line at and/or go to the nearest emergency room for evaluation Discharge Disposition: HOME SELF-CARE
[2021-09-18 22:27] LABS: Urine Alcohol Negative (Negative); Urine Barbiturate Negative (Negative); Urine Cocaine Negative (Negative); Urine Methadone Negative (Negative); Urine Opiates Negative (Negative); Urine Phencyclidine Negative (Negative)
== END 2021-09-18 10:50 | disposition home or self-care (01) | DRG 881 ==
LOC: EC 17:02 → 3MHU 09-17 02:38
PROVIDERS: ADMIT Psychiatry & Neurology Psychiatry; ATTEND Psychiatry & Neurology Psychiatry
DX: F43.21 Adjustment disorder with depressed mood (principal); F10.139 Alcohol abuse with withdrawal, unspecified; R45.851 Suicidal ideations; F10.129 Alcohol abuse with intoxication, unspecified; F17.210 Nicotine dependence, cigarettes, uncomplicated; F41.9 Anxiety disorder, unspecified; Z63.4 Disappearance and death of family member; Z81.1 Family history of alcohol abuse and dependence; Z91.19 Patient's noncompliance with other medical treatment and regimen; Z20.822 Contact with and (suspected) exposure to COVID-19; Z88.0 Allergy status to penicillin; Z79.899 Other long term (current) drug therapy
CPT/HCPCS: 80053; 80306; 81001; 81025; 82075; 83036; 84443; 85025; 87635; 99285

== ENCOUNTER 2021-10-11 12:48 | Inpatient (IN) | payer BC, MEDICAID ==
[2021-10-11 15:27] LABS: Amphetamine Screen,Urine Not Detected (NotDetected); Barbiturate Screen,Urine Not Detected (NotDetected); Benzodiazepines Screen,Urine Detected (NotDetected); Cocaine Screen,Urine Not Detected (NotDetected); Methadone Screen, Urine Not Detected (NotDetected); Opiate Screen,Urine Detected (NotDetected); Oxycodone Screen, Urine Not Detected (NotDetected); Phencyclidine Screen,Urine Not Detected (NotDetected); Tricyclic Antidepressant,Urine Not Detected (NotDetected); Urn Cannabinoid Scrn Not Detected (NotDetected)
--- NOTE | 2021-10-11 16:19 | ED ---
Psych HPI - General Chief Complaint: Psychiatric Symptoms Stated Complaint: mental health Time Seen by Provider: 10/11/21 14:34 Source: patient, family, RN notes reviewed Mode of arrival: ambulatory - History of Present Illness Initial Comments: This is a 26-year-old female who presents to the emergency department for psychiatric evaluation. Breathalyzer revealed an alcohol level of 0.22%. When I asked the patient why she was here, she states "I am here to [facility] to [facility]." I asked whether or not she had any suicidal or homicidal ideations, and she states, "I'll say whatever I have to say in order to get to [address] [place]." The patient and her cousin feel that she is overall very unstable at this time and would benefit from inpatient treatment. The patient will need to be reevaluated once she is sober, as the ability to obtain information is very limited at this time. History of same: Yes Context: recent alcohol abuse, recent drug abuse - Related Data Home Medications Medication Instructions Recorded Confirmed No Known Home Medications 09/16/21 10/11/21 Allergies Allergy/AdvReac Type Severity Reaction Status Date / Time Penicillins Allergy Swelling Verified 10/11/21 15:41 red dye Allergy Hallucinati Verified 10/11/21 15:41 ons Review of Systems ROS Statement: Those systems with pertinent positive or pertinent negative responses have been documented in the HPI. ROS Other: All systems not noted in ROS Statement are negative. Limitations: ROS unobtainable due to patients medical condition (intoxicated) Past Medical History Past Medical History: No Reported History History of Any Multi-Drug Resistant Organisms: None Reported Past Surgical History: No Surgical Hx Reported Additional Past Surgical History / Comment(s): pt just had a baby removed out of her tubes 1 week ago- 09/16/21 Past Anesthesia/Blood Transfusion Reactions: No Reported Reaction Additional Past Anesthesia/Blood Transfusion Reaction / Comment(s): no transf. hx Past Psychological History: Anxiety, Bipolar, Depression Smoking Status: Current every day smoker Past Alcohol Use History: Abuse, Daily Past Drug Use History: None Reported - Past Family History Father Family Medical History: No Reported History General Exam Limitations: no limitations General appearance: alert, appears intoxicated Head exam: Present: atraumatic, normocephalic, normal inspection Respiratory exam: Present: normal lung sounds bilaterally. Absent: respiratory distress, wheezes, rales, rhonchi, stridor Cardiovascular Exam: Present: regular rate, normal rhythm, normal heart sounds. Absent: systolic murmur, diastolic murmur, rubs, gallop, clicks Neurological exam: Present: alert, oriented X3, CN II-XII intact Psychiatric exam: Present: agitated Skin exam: Present: warm, dry, intact, normal color. Absent: rash Course Vital Signs 10/11/21 10/11/21 13:34 18:21 Temperature 98.6 F 99.2 F Pulse Rate 124 H 124 H Respiratory 18 14 Rate Blood Pressure 121/82 125/81 O2 Sat by Pulse 95 100 Oximetry Medical Decision Making - Medical Decision Making This is a 26-year-old female who presents to the emergency department for psychi atric evaluation. With the patient's current alcohol level, it will be approximately 8hrs until she is sober and can be medically cleared, around 22:50. Patient's UDS is positive for opiates and benzodiazepines. EPS evaluated the patient and recommended inpatient admission. Will plan to admit the patient to this facility with alcohol withdrawal protocol in place. Patient required 3 separate doses of Ativan for anxiety and alcohol withdrawal. Case will be signed out to attending physician while patient waits for admission upstairs. - Lab Data Lab Results 10/11/21 10/11/21 10/11/21 Range/Units 14:50 14:50 22:04 Urine HCG, Qual Not Detected (Not Detectd) Urine Opiates Screen Detected H (NotDetected) Ur Oxycodone Screen Not Detected (NotDetected) Urine Methadone Screen Not Detected (NotDetected) Ur Propoxyphene Screen Not Detected (NotDetected) Ur Barbiturates Screen Not Detected (NotDetected) U Tricyclic Antidepress Not Detected (NotDetected) Ur Phencyclidine Scrn Not Detected (NotDetected) Ur Amphetamines Screen Not Detected (NotDetected) U Methamphetamines Scrn Not Detected (NotDetected) U Benzodiazepines Scrn Detected H (NotDetected) Urine Cocaine Screen Not Detected (NotDetected) U Marijuana (THC) Screen Not Detected (NotDetected) Coronavirus (PCR) Not Detected (Not Detectd) Disposition Clinical Impression: Bipolar disorder Disposition: ADMITTED IP TO THIS HOSP Referrals: None,Stated [Primary Care Provider] - 1-2 days
[2021-10-11] MEDS ORDERED: LORazepam 1 MG TAB PO STA ×2 (16:36→20:03)
[2021-10-11] MEDS ORDERED: diphenhydrAMINE 50 MG CAP PO STA (18:42)
[2021-10-11] MEDS ORDERED: LORazepam 2 MG/ML INJ IM STA (21:54)
[2021-10-12] MEDS ORDERED: MAG HYDROX/AL HYDROX/SIMETH 30 ML CUP PO PRN
[2021-10-12] MEDS ORDERED: HALOPERIDOL LACTATE 5 MG/ML 1 ML VIAL IM PRN
[2021-10-12] MEDS ORDERED: LORazepam 2 MG/ML INJ IM PRN
[2021-10-12] MEDS ORDERED: LORazepam 1 MG TAB PO PRN ×2
[2021-10-12] MEDS: LORazepam 1 MG TAB PO PRN ×3 (00:19→23:46)
[2021-10-12] MEDS: haloperidoL 5 MG TAB PO PRN (00:19)
[2021-10-12 01:01] VITALS: RESP 18
--- NOTE | 2021-10-12 01:58 | P.PN ---
Progress Note - Text Progress Note Date: 10/12/21 uncooperative patient , unable to interview
[2021-10-12] MEDS: NICOTINE 14MG/24HR PATCH TRANSDERM SCH (08:10)
[2021-10-12] MEDS: FOLIC ACID 1 MG TAB PO SCH (08:11)
[2021-10-12] MEDS: MULTIVITAMINS, THERA 1 EACH TAB PO SCH (08:11)
[2021-10-12] MEDS: chlordiazePOXIDE 25 MG CAP PO SCH ×3 (08:11→21:12)
[2021-10-12] MEDS: THIAMINE 100 MG TAB PO SCH (08:11)
[2021-10-12] MEDS ORDERED: diazePAM 5 MG TAB PO SCH (09:00)
[2021-10-12] MEDS ORDERED: MAGNESIUM HYDROXIDE 2,400 MG/10 ML CUP PO PRN (09:00)
--- NOTE | 2021-10-12 10:27 | P.HP ---
Psychiatric H&P - . H&P Date: 10/12/21 History & Physical: Allergies Allergy/AdvReac Type Severity Reaction Status Date / Time Penicillins Allergy Swelling Verified 10/11/21 15:41 red dye Allergy Hallucinati Verified 10/11/21 15:41 ons Vital Signs Temp 98.2 F 10/12/21 00:51 Pulse 125 H 10/12/21 08:12 Resp 18 10/12/21 00:51 BP 122/77 10/12/21 08:12 Pulse Ox 100 10/11/21 18:21 Intake & Output 10/11/21 10/12/21 10/12/21 18:59 06:59 18:59 Weight 46.72 kg 46.5 kg Laboratory Last Values Urine HCG, Qual Not Detected (Not Detectd) 10/11/21 14:50 Urine Opiates Screen Detected (NotDetected) H 10/11/21 14:50 Ur Oxycodone Screen Not Detected (NotDetected) 10/11/21 14:50 Urine Methadone Screen Not Detected (NotDetected) 10/11/21 14:50 Ur Propoxyphene Screen Not Detected (NotDetected) 10/11/21 14:50 Ur Barbiturates Screen Not Detected (NotDetected) 10/11/21 14:50 U Tricyclic Antidepress Not Detected (NotDetected) 10/11/21 14:50 Ur Phencyclidine Scrn Not Detected (NotDetected) 10/11/21 14:50 Ur Amphetamines Screen Not Detected (NotDetected) 10/11/21 14:50 U Methamphetamines Scrn Not Detected (NotDetected) 10/11/21 14:50 U Benzodiazepines Scrn Detected (NotDetected) H 10/11/21 14:50 Urine Cocaine Screen Not Detected (NotDetected) 10/11/21 14:50 U Marijuana (THC) Screen Not Detected (NotDetected) 10/11/21 14:50 Coronavirus (PCR) Not Detected (Not Detectd) 10/11/21 22:04 10/12/21 10:14 Chief complaint: patient stated that she was drinking alcohol. History of present illness: Patient stated she was drinking too much of alcohol and her blood alcohol level was high in the emergency room. I reviewed her emergency room records and it was stated "This is a 26-year-old female who presents to the emergency department for psychiatric evaluation. Breathalyzer revealed an alcohol level of 0.22%. When I asked the patient why she was here, she states "I am here to go to [facility]." I asked whether or not she had any suicidal or homicidal ideations, and she states, "I'll say whatever I have to say in order to get to [facility]." The patient and her cousin feel that she is overall very unstable at this time and would benefit from inpatient treatment. " "This is a 26-year-old female who presents to the emergency department for psychiatric evaluation. With the patient's current alcohol level, it will be approximately 8hrs until she is sober and can be medically cleared, around 22:50. Patient's UDS is positive for opiates and benzodiazepines. EPS evaluated the patient and recommended inpatient admission. Will plan to admit the patient to this facility with alcohol withdrawal protocol in place. Patient required 3 separate doses of Ativan for anxiety and alcohol withdrawal." Current medication: Patient stated that she is not on any medication at present. She does not remember what she was taking before. Past psychiatric history: She stated she has been in psychiatric hospital 5-6 different times. She feels depressed or sad and down. She stated she has been admitted here before because of her depression. Substance abuse history: Her UDS is a positive for opiates and benzodiazepines and she was also drinking alcohol. Patient however denied having any problem with the alcohol or drugs. Medical history: She denied having any medical problems. Family history: She denied any history of mental illness in the family. She denies any history of alcohol or drug problems in the family. She denies any history of suicide in the family. Social history: She stated she grew up with her parent's and she went to school up until 12th grade. She denies having any college education. 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 Psychological trauma: She denies any history of physical or sexual abuse ever. Mental status: This patient appears to be of her stated age and she has multiple tattoos on her body. She has psychomotor retardation. Her hygiene and grooming is poor. Her behavior is uncooperative. Her mood is depressed. She denies any auditory visual or any other types of hallucinations. She denies any delusions. She speaks in a very low monotonous voice which is a hardly productive. She is unable to concentrate on things. Her memory for recent and remote past is inta ct. Her attention span is poor. She has no insight into her problems and her judgment is impaired. Her cognition is intact. Diagnosis: Bipolar disorder not otherwise specified depressed type Polysubstance dependence Treatment recommendations: This patient will be detoxed off of alcohol. She will be started on her medication. She will be encouraged to participate in milieu therapy and activi ty therapy available to her on the unit.
[2021-10-12] MEDS: ACETAMINOPHEN TAB 325 MG TAB PO PRN (23:47)
--- NOTE | 2021-10-13 03:39 | P.MDCNMH ---
History of Present Illness H&P Date: 10/12/21 Chief Complaint: Medical evaluation 26-year-old female denies any past medical history Patient reports that she was here for alcohol detox, and she is hoping that after discharge she would go to [place] for rehab. She denies any homicidal or suicidal ideation and admits that in the ED patient told the doctors that she would say anything that would help her get into [facility] to be evaluated and stabilized due to alcohol intoxication and abuse. Per ED notes and confirms that claim as she told the ER doctor's that she would say that she suicidal about what it takes to take her to [facility] She otherwise denies any fevers chills denies any coughing shortness of breath chest pain denies any abdominal pain nausea vomiting changes in bowel habits or urinary habits Patient admits to tobacco smoking and heavy alcohol abuse, denies any drug abuse Review of Systems Pertinent positives as noted in HPI. All other systems were reviewed and are negative Past Medical History Past Medical History: No Reported History History of Any Multi-Drug Resistant Organisms: None Reported Past Surgical History: No Surgical Hx Reported Additional Past Surgical History / Comment(s): pt just had a baby removed out of her tubes 1 week ago- 09/16/21 Past Anesthesia/Blood Transfusion Reactions: No Reported Reaction Additional Past Anesthesia/Blood Transfusion Reaction / Comment(s): no transf. hx Past Psychological History: Anxiety, Bipolar, Depression Smoking Status: Current every day smoker Past Alcohol Use History: Abuse, Daily Past Drug Use History: None Reported - Past Family History Father Family Medical History: No Reported History Medications and Allergies Home Medications Medication Instructions Recorded Confirmed Type No Known Home Medications 09/16/21 10/11/21 History Allergies Allergy/AdvReac Type Severity Reaction Status Date / Time Penicillins Allergy Swelling Verified 10/11/21 15:41 red dye Allergy Hallucinati Verified 10/11/21 15:41 ons Physical Exam Vitals: Vital Signs Pulse BP 10/12/21 18:06 101 H 120/92 10/12/21 08:12 125 H 122/77 Intake and Output 10/12/21 10/12/21 10/13/21 14:59 22:59 06:59 Other: Weight 46.5 kg Constitutional: No acute distress, conversant, pleasant Eyes: Anicteric sclerae, moist conjunctiva, Pupils equal round reactive to light ENMT: NC/AT Oropharynx clear, no erythema, or exudates Neck: Supple, FROM, no masses, or JVD No carotid bruits No thyromegaly Lungs: Clear to auscultation Clear to percussion Normal respiratory effort, no accessory muscle use Cardiovascular: Heart regular in rate and rhythm, No murmurs, gallops, or rubs No peripheral edema Abdominal: Soft Nontender, no guarding, rebound or rigidity Abdomen moving with respiration Normoactive bowel sounds No hepatomegaly, No splenomegaly No palpable mass No abdominal wall hernia noted Skin: Normal temperature, tone, texture, turgor No induration No subcutaneous nodules No rash, lesions No ulcers Extremities: No digital cyanosis No clubbing Pedal pulses intact and symmetrical Radial pulses intact and symmetrical No calf tenderness Psychiatric: Alert and oriented to person, place and time Neuro Muscles Strength 5/5 in all 4 extremities Sensation to light touch grossly present throughout Cranial nerves II-XII grossly intact No focal sensory deficits Lymphatics: no palpable cervical or supraclavicular , or inguinal lymph nodes Cranial Nerve Examination - Cranial Nerves Cranial Nerve II- Optic: Intact Cranial Nerve III- Oculomotor: Intact Cranial Nerve IV- Trochlear: Intact Cranial Nerve V- Trigeminal: Intact Cranial Nerve - Abducens: Intact Cranial Nerve VII- Facial: Intact Cranial Nerve VIII- Auditory: Intact Cranial Nerve IX- Glossopharyngeal: Intact Cranial Nerve X- Vagus: Intact Cranial Nerve XI- Accessory: Intact Cranial Nerve XII- Hypoglossal: Intact Assessment and Plan Assessment: Alcohol abuse Monitoring for alcohol withdrawal syndrome Continue with thiamine's Benzodiazepines per CIWA scale Psych evaluation Follow-up labs Thank you for allowing us to participate in the care of this patient. We will follow peripherally. Do not hesitate to contact us with questions. Someone can be reached from the [facility] hospitalist group at all hours of the day at [phone].
[2021-10-13 07:13] VITALS: BP 123/81; PULSE 111; TEMP 99
[2021-10-13] MEDS: THIAMINE 100 MG TAB PO SCH (08:16)
[2021-10-13] MEDS: FOLIC ACID 1 MG TAB PO SCH (08:16)
[2021-10-13] MEDS: chlordiazePOXIDE 25 MG CAP PO SCH ×2 (08:16→14:33)
[2021-10-13] MEDS: ACETAMINOPHEN TAB 325 MG TAB PO PRN (08:16)
[2021-10-13] MEDS: MULTIVITAMINS, THERA 1 EACH TAB PO SCH (08:16)
[2021-10-13] MEDS: NICOTINE 14MG/24HR PATCH TRANSDERM SCH (08:57)
[2021-10-13] MEDS ORDERED: SERTRALINE 50 MG TAB PO SCH (09:00)
[2021-10-13] MEDS: LORazepam 1 MG TAB PO PRN (10:19)
[2021-10-13] MEDS: haloperidoL 5 MG TAB PO PRN (10:20)
--- NOTE | 2021-10-13 10:21 | P.PN ---
Progress Note - Text Progress Note Date: 10/13/21 Interval History: Patient was seen wandering the hallways and was directable and agreeable to sp jose with lead technical writer in the office. Patient was fairly persistent and speaking with lead technical writer today. She spoke briefly about why she came in the hospital and claims that she was drinking approximately 2-1/2 fiths of liquor per day. She claims that she has been doing this for several months now and has tried to quit several times on her own however has failed. She states that she is feeling depressed and anxious however was fairly persistent not wanting to be discharged. She states that she wants to know if she can get a bad [facility] for rehab. She was attempting to minimize her withdrawal symptoms were ever did state that she has anxiety and also tremors however has no history of DTs. Patient has elevation in her heart rate in her vital signs. She was tearful during the interview. She claims that she has been sleeping poorly due to "people yelling in the hallway" she claims that she has a fair appetite. At this time patient denies any suicidal or homical ideations, intent or plan. Patient denies any auditory, visual hallucinations and denies any paranoia or delusions. Patient denies any side effects from the medications and has been compliant with meds. Mental Status Exam: General Appearance: Patient appears to be thin, has her hair in corwin, stated age is alert, directable, and cooperative. Behavior: Patient is calmly seated without any agitated behavior. Tearful. Tr emors. Speech: Patient's speech is fluent and nonpressured. Hesitant. Soft tone. Mood/Affect: Mood is depressed and anxious, affect is congruent Suicidality/Homicidality: Patient denies having any suicidal or homicidal ideation intent or plan. Perceptions: Patient denies any visual hallucinations and denies any auditory hallucinations Though content/process: There is no evidence of any delusional thought content and thought process is linear and goal-directed. Minimizing her drinking and requesting discharge. Memory and concentration: AOX3, grossly intact for the purposes of this session Judgment and insight: Poor, improving moderately. Assessment Major depressive disorder, without psychotic features Alcohol use disorder, severe, currently in withdrawal Benzodiazepine abuse. Nicotine dependence Plan: -Patient continues to meet criteria for inpatient psychiatric admission for symptom stabilization and safety. Patient has signed adult voluntary form and medication consent and was placed in patient's chart. -Medications: Continue Zoloft 50 mg daily for mood/90, added melatonin 6 mg daily at bedtime for sleep, continue with Librium 25 mg 3 times a day for alcohol withdrawal, we'll consider decreasing tomorrow. Spoke with patient also about naltrexone for alcohol cravings however she will think about this. -CIWA protocol with when necessary Ativan for withdrawal symptoms. -When necessary Ativan and Haldol for agitation/aggression. -NRT - nicotine patch -SW on board for discharge planning. Encouraged the patient to participate in milieu. We'll speak with psychiatric social worker today to see about process for discharging patient to rehab once she is cleared psychiatrically.
--- NOTE | 2021-10-13 14:17 | P.DS ---
Providers Date of admission: 10/11/21 23:28 Expected date of discharge: 10/13/21 Attending physician: Redd Jacobo MD Consults: 10/11/21 23:34 Consult Physician Routine Consulting Provider: Nina Cross Consult Reason/Comments: History and physical Do you want consulting provider notified?: Yes Primary care physician: Stated None - Discharge Diagnosis(es) (1) Major depressive disorder Current Visit: Yes Status: Acute Priority: High (2) Alcohol use disorder, severe, dependence Current Visit: Yes Status: Acute Priority: High (3) Benzodiazepine abuse Current Visit: Yes Status: Acute Priority: Medium (4) Nicotine dependence Current Visit: Yes Status: Acute Priority: Low Hospital Course: Admission HPI: Admission note was completed by Dr Ruiz "Chief complaint: patient stated that she was drinking alcohol. Patient stated she was drinking too much of alcohol and her blood alcohol level was high in the emergency room. I reviewed her emergency room records and it was stated "This is a 26-year-old female who presents to the emergency department for psychiatric evaluation. Breathalyzer revealed an alcohol level of 0.22%. When I asked the patient why she was here, she states "I am here to go to [facility]." I asked whether or not she had any suicidal or homicidal ideations, and she states, "I'll say whatever I have to say in order to get to [facility]." The patient and her cousin feel that she is overall very unstable at this time and would benefit from inpatient treatment. " This is a 26-year-old female who presents to the emergency department for psychiatric evaluation. With the patient's current alcohol level, it will be approximately 8hrs until she is sober and can be medically cleared, around 22:50. Patient's UDS is positive for opiates and benzodiazepines. EPS evaluated the patient and recommended inpatient admission. Will plan to admit the patient to this facility with alcohol withdrawal protocol in place. Patient required 3 separate doses of Ativan for anxiety and alcohol withdrawal." Patient stated that she is not on any medication at present. She does not remember what she was taking before." Hospital course: Upon admission to the unit patient was directable and agreeable to commence treatment and signed adult voluntary form. Patient got along well with other patients on the unit and followed unit protocol. Patient was compliant with the medications and denied any side effects throughout hospital course. Patient was started on Zoloft 50 mg daily for mood/anxiety, melatonin 6 mg daily at bedtime for insomnia, patient was also started on Librium 25 mg 3 times a day for alcohol withdrawal and also CIWA protocol with when necessary Ativan. Patient was offered medications for cravings however refused. Patient spoke of her s tressors and engaged in therapy both group and individual. Patient was also seen by medical team for history and physical exam. Throughout the course of the hospitalization patient gradually improved with regards to mood, anxiety however patient's grandmother got patient is a bed at [facility] for inpatient rehab/acute withdrawal and requested to have patient transferred today under her care. Patient was agreeable to this and wanted to continue on with treatment at [facility]. On the day of discharge patient denied any suicidal or homicidal ideations intent or plan denied any auditory or visual hallucinations. Prior to discharge a family meeting will be arranged by social sciences department chair to answer any questions and ensure safety upon discharge and to ensure that patient will safely get transferred to [facility] today by her grandmother. Mental status exam: As per progress note by senior underwriter today. Impression: Major depressive disorder, without psychotic features Alcohol use disorder, severe, in withdrawals Benzodiazepine abuse Nicotine dependence Plan: -Continue with discharge today as patient has improved and stabilized psychiatrically and is not currently an imminent threat to herself and/or others. Patient will remain at chronically elevated risk for harm to self and/or others due to her polysubstance abuse. -Continue medications: Zoloft 50 mg daily for mood/anxiety, melatonin 6 mg daily at bedtime for sleep, Librium 25 mg 3 times a day for alcohol withdrawal (will be given a three day supply of this). -Patient was counseled on the need for medication compliance and appropriate follow-up at mental health and also primary care for medical issues. Patient verbalized understanding and agreed. -Social work to help arrange for patient's discharge today/transfer to [facility] for inpatient rehab/detox. Patient's grandmother found patient a bed today and was requesting transfer and patient is agreeable to this. -Patient counseled on abstaining from recreational drugs and marijuana and alcohol. Was informed/educated on the adverse effects on their physical and mental health. Patient verbally agreed and understood. -Patient was instructed to return to the hospital or seek immediate medical care if their psychiatric or medical symptoms do worsen or reoccur. Allergies Allergy/AdvReac Type Severity Reaction Status Date / Time Penicillins Allergy Swelling Verified 10/11/21 15:41 red dye Allergy Hallucinati Verified 10/11/21 15:41 ons Laboratory Results Urine HCG, Qual Not Detected (Not Detectd) 10/11/21 14:50 Urine Opiates Screen Detected (NotDetected) H 10/11/21 14:50 Ur Oxycodone Screen Not Detected (NotDetected) 10/11/21 14:50 Urine Methadone Screen Not Detected (NotDetected) 10/11/21 14:50 Ur Propoxyphene Screen Not Detected (NotDetected) 10/11/21 14:50 Ur Barbiturates Screen Not Detected (NotDetected) 10/11/21 14:50 U Tricyclic Antidepress Not Detected (NotDetected) 10/11/21 14:50 Ur Phencyclidine Scrn Not Detected (NotDetected) 10/11/21 14:50 Ur Amphetamines Screen Not Detected (NotDetected) 10/11/21 14:50 U Methamphetamines Scrn Not Detected (NotDetected) 10/11/21 14:50 U Benzodiazepines Scrn Detected (NotDetected) H 10/11/21 14:50 Urine Cocaine Screen Not Detected (NotDetected) 10/11/21 14:50 U Marijuana (THC) Screen Not Detected (NotDetected) 10/11/21 14:50 Coronavirus (PCR) Not Detected (Not Detectd) 10/11/21 22:04 Vital Signs Temp 99 F 10/13/21 07:12 Pulse 111 H 10/13/21 07:12 Resp 18 10/12/21 00:51 BP 123/81 10/13/21 07:12 Pulse Ox 97 10/13/21 07:12 Intake & Output 10/12/21 10/13/21 10/13/21 18:59 06:59 18:59 Weight 46.5 kg Laboratory Results Urine HCG, Qual Not Detected (Not Detectd) 10/11/21 14:50 Urine Opiates Screen Detected (NotDetected) H 10/11/21 14:50 Ur Oxycodone Screen Not Detected (NotDetected) 10/11/21 14:50 Urine Methadone Screen Not Detected (NotDetected) 10/11/21 14:50 Ur Propoxyphene Screen Not Detected (NotDetected) 10/11/21 14:50 Ur Barbiturates Screen Not Detected (NotDetected) 10/11/21 14:50 U Tricyclic Antidepress Not Detected (NotDetected) 10/11/21 14:50 Ur Phencyclidine Scrn Not Detected (NotDetected) 10/11/21 14:50 Ur Amphetamines Screen Not Detected (NotDetected) 10/11/21 14:50 U Methamphetamines Scrn Not Detected (NotDetected) 10/11/21 14:50 U Benzodiazepines Scrn Detected (NotDetected) H 10/11/21 14:50 Urine Cocaine Screen Not Detected (NotDetected) 10/11/21 14:50 U Marijuana (THC) Screen Not Detected (NotDetected) 10/11/21 14:50 Coronavirus (PCR) Not Detected (Not Detectd) 10/11/21 22:04 Patient Condition at Discharge: Undetermined Plan - Discharge Summary New Discharge Prescriptions: New Nicotine 14Mg/24Hr Patch [Habitrol] 1 patch TRANSDERM DAILY 14 Days patch chlordiazePOXIDE HCl [Librium] 25 mg PO TID 3 Days cap Melatonin 6 mg PO HS 30 Days tablet Multivitamins, Thera [Multivitamin (formulary)] 1 each PO DAILY 30 Days tab Thiamine [Vitamin B-1] 100 mg PO DAILY 30 Days tab Folic Acid 1 mg PO DAILY 30 Days tab Sertraline [Zoloft] 50 mg PO DAILY 30 Days tab Discharge Medication List Folic Acid 1 mg PO DAILY 30 Days tab 10/13/21 [Rx] Melatonin 6 mg PO HS 30 Days tablet 10/13/21 [Rx] Multivitamins, Thera [Multivitamin (formulary)] 1 each PO DAILY 30 Days tab 10/13/21 [Rx] Nicotine 14Mg/24Hr Patch [Habitrol] 1 patch TRANSDERM DAILY 14 Days patch 10/13/21 [Rx] Sertraline [Zoloft] 50 mg PO DAILY 30 Days tab 10/13/21 [Rx] Thiamine [Vitamin B-1] 100 mg PO DAILY 30 Days tab 10/13/21 [Rx] chlordiazePOXIDE HCl [Librium] 25 mg PO TID 3 Days cap 10/13/21 [Rx] Follow up Appointment(s)/Referral(s): Georgiana Ocampo [Other] - 10/13/21 5:00 pm [facility] [NON-STAFF] - 1 Week Patient Instructions/Handouts: Bipolar Disorder (DC) Activity/Diet/Wound Care/Special Instructions: Activity and diet as tolerated. Avoid the use of street drugs and alcohol. Take all medications as prescribed. When you are in need of refills on your medications please contact your medical provider and/or outpatient psychiatrist to have this done. Please go to scheduled outpatient appointment for aftercare treatment. If symptoms return or become worse, call the crisis line at and/or go to the nearest emergency room for evaluation Discharge Disposition: TRANSFER TO PSYCH HOSP/UNIT
[2021-10-13] MEDS ORDERED: MELATONIN 3 MG TABLET PO SCH (21:00)
== END 2021-10-13 15:26 | DRG 897 ==
LOC: EC 12:48 → 3MHU 23:28
PROVIDERS: ADMIT Psychiatry & Neurology Psychiatry; ATTEND Psychiatry & Neurology Psychiatry
DX: F10.239 Alcohol dependence with withdrawal, unspecified (principal); F31.9 Bipolar disorder, unspecified; F10.229 Alcohol dependence with intoxication, unspecified; F19.10 Other psychoactive substance abuse, uncomplicated; Z20.822 Contact with and (suspected) exposure to COVID-19; F13.10 Sedative, hypnotic or anxiolytic abuse, uncomplicated; F17.200 Nicotine dependence, unspecified, uncomplicated; F41.9 Anxiety disorder, unspecified; G47.00 Insomnia, unspecified; Y90.7 Blood alcohol level of 200-239 mg/100 ml; Z79.899 Other long term (current) drug therapy; Z88.0 Allergy status to penicillin
CPT/HCPCS: 80306; 81025; 82075; 87635; 96372; 99285

== ENCOUNTER 2022-06-11 10:25 | Emergency (ER) | payer BC, MEDICAID ==
[2022-06-11 11:04] VITALS: RESP 16; TEMP 99.1
[2022-06-11 12:01] LABS: Basophils % (A) 0 %; Eosinophils # (A) 0.1 k/uL (0-0.7); Eosinophils % (A) 1 %; HCT 38.1 % (34.0-46.0); HGB 12.7 gm/dL (11.4-16.0); Lymphocytes # (A) 1.9 k/uL (1.0-4.8); Lymphocytes % (A) 19 %; MCH 30.2 pg (25.0-35.0); MCHC 33.5 g/dL (31.0-37.0); MCV 90.4 fL (80.0-100.0); Mean Platelet Volume 7.2; Monocytes # (A) 0.5 k/uL (0-1.0); Monocytes % (A) 5 %; Neutrophils # (A) 7.2 k/uL (1.3-7.7); Neutrophils % (A) 72 %; Platelet Count 332 k/uL (150-450); RBC 4.21 m/uL (3.80-5.40)
[2022-06-11 12:12] LABS: ALT 53 U/L (4-34); AST 44 U/L (14-36); African American GFR (CKD) >90 (>60 ml/min/1.73 sqM); Albumin 4.5 g/dL (3.5-5.0); Alkaline Phosphatase 50 U/L (38-126); Anion Gap 8 mmol/L; Blood Urea Nitrogen 8 mg/dL (7-17); Calcium 9.2 mg/dL (8.4-10.2); Carbon Dioxide 25 mmol/L (22-30); Chloride 105 mmol/L (98-107); Glucose 86 mg/dL (74-99); Non-African American GFR(CKD) >90 (>60 ml/min/1.73 sqM); Potassium 4.1 mmol/L (3.5-5.1); Sodium 138 mmol/L (137-145); Total Bilirubin 0.4 mg/dL (0.2-1.3); Total Protein 7.2 g/dL (6.3-8.2)
[2022-06-11 12:17] LABS: Appearance,Urine Cloudy (Clear); Bacteria,Urine Rare /hpf; Bilirubin,Urine Negative (Negative); Blood,Urine Large (Negative); Color,Urine Yellow; Glucose,Urine (UA) Negative (Negative); Ketones,Urine Negative (Negative); Leukocyte Esterase,Urine Moderate (Negative); Mucus,Urine Rare /hpf; Nitrite,Urine Negative (Negative); Protein,Urine Trace (Negative); RBC,Urine <1 /hpf (0-5); Specific Gravity,Urine 1.023 (1.001-1.035); Squamous Epithelial Cell,Urine 16 /hpf (0-4); Urobilinogen,Urine <2.0 mg/dL (<2.0); WBC,Urine 16 /hpf (0-5)
[2022-06-11 12:29] LABS: HCG,Quantitative Serum 3702.4 mIU/mL
--- NOTE | 2022-06-11 13:59 | US ---
EXAMINATION TYPE: Transabdominal DATE OF EXAM: 06/11/2022 1:32 PM COMPARISON: 09/02/2021 CLINICAL HISTORY: pain. Generalized pelvic pain x 4 days. History of right sided ectopic i n August 2021. EXAM PERFORMED: Transvaginal (TV) and Transabdominal (TA) EXAM MEASUREMENTS: GESTATIONAL AGE / DATING Physician Established: Not yet established Dates by LMP: (05 weeks/03 days) EDC: 02/08/2023 Dates by First Scan: No previous this is first scan Dates by Current Scan for: No IUP seen at this time MATERNAL ANATOMY Uterus: Retroverted. Thickened at 1.1cm, slightly heterogeneous endometrium. Right Ovary: Not visualized, presumably obscured by bowel gas. Patient states fallopian tube removed but ovary remains. Left Ovary: 1. Anechoic mass 3.0 x 2.4 x 3.1cm. 2. Complex cystic mass with small area of echogenic ity 2.1 x 1.5 x 2.4cm. Post CDS / Adnexa: wnl Presence of free fluid: no Presence of corpus luteal cyst: No Presence of subchorionic bleed: No GESTATION / SURVEY CRL: No pole visualized on today's exam. MSD: No gestational sac visualized on today's exam. Date of LMP: 05/04/2022 Beta HcG (if available): 3,702.4 IMPRESSION: 1. Endometrium is thickened and heterogeneous measuring 1.1 cm. No pole visualized. 2. There is an anechoic mass within the left ovary measuring 3 cm suggestive of a cyst. There is an a dditional complex cystic mass measuring 2.1 x 2.4 cm within the left ovary. In the presence of a pos itive beta hCG differential diagnosis would include missed , ectopic , although a no rmal too early to detect could not be excluded. Correlate clinically and if necessary a ser ial beta hCG and pelvic ultrasound.
[2022-06-11] MEDS ORDERED: METHOTREXATE SODIUM (PF) 25 MG/ML 2 ML VIAL IM ONE (14:44)
--- NOTE | 2022-06-11 14:55 | ED ---
Abdominal Pain HPI - General Chief Complaint: Abdominal Pain Stated Complaint: , cramping Time Seen by Provider: 06/11/22 11:10 Source: patient Mode of arrival: ambulatory Limitations: no limitations - History of Present Illness Initial Comments: 27-year-old female who is who presents to the emergency department with lower abdominal cramping. Patient took a test 2 weeks ago which was positive. States her last menstrual cycle was around May 04. Over the past several days she has developed lower abdominal cramping with a little bit of spotting. She does have a history of an ectopic with removal of her right tube in August of this year. Reports that she currently does not follow with an [facility]. She has not had any laboratory evaluation or ultrasound performed at this current . Patient denies any abdominal trauma. No dysuria, hematuria or difficulty voiding. Denies diarrhea, consultation, black or bloody stools. No abnormal vaginal discharge or concern for sexually transmitted infections. No fevers. No other alleviating, precipitating or modifying factors - Related Data Previous Rx's Medication Instructions Recorded Folic Acid 1 mg PO DAILY 30 Days tab 10/13/21 Melatonin 6 mg PO HS 30 Days tablet 10/13/21 Multivitamins, Thera [Multivitamin 1 each PO DAILY 30 Days tab 10/13/21 (formulary)] Nicotine 14Mg/24Hr Patch [Habitrol] 1 patch TRANSDERM DAILY 14 Days 10/13/21 patch Sertraline [Zoloft] 50 mg PO DAILY 30 Days tab 10/13/21 Thiamine [Vitamin B-1] 100 mg PO DAILY 30 Days tab 10/13/21 chlordiazePOXIDE HCl [Librium] 25 mg PO TID 3 Days cap 10/13/21 Allergies Allergy/AdvReac Type Severity Reaction Status Date / Time Penicillins Allergy Swelling Verified 06/11/22 11:02 red dye Allergy Hallucinati Verified 06/11/22 11:02 ons Review of Systems ROS Statement: Those systems with pertinent positive or pertinent negative responses have been documented in the HPI. ROS Other: All systems not noted in ROS Statement are negative. Past Medical History Past Medical History: No Reported History History of Any Multi-Drug Resistant Organisms: None Reported Past Surgical History: No Surgical Hx Reported Additional Past Surgical History / Comment(s): pt just had a baby removed out of her tubes 1 week ago- 09/16/21 Past Anesthesia/Blood Transfusion Reactions: No Reported Reaction Additional Past Anesthesia/Blood Transfusion Reaction / Comment(s): no transf. hx Past Psychological History: Anxiety, Bipolar, Depression Smoking Status: Current every day smoker Past Alcohol Use History: Abuse, Daily Past Drug Use History: None Reported - Past Family History Father Family Medical History: No Reported History General Exam Limitations: no limitations General appearance: alert, in no apparent distress Head exam: Present: atraumatic, normocephalic, normal inspection Eye exam: Present: normal appearance, PERRL, EOMI. Absent: scleral icterus, conjunctival injection, periorbital swelling ENT exam: Present: normal exam, mucous membranes moist Neck exam: Present: normal inspection. Absent: tenderness, meningismus, lymphadenopathy Respiratory exam: Present: normal lung sounds bilaterally. Absent: respiratory distress, wheezes, rales, rhonchi, stridor Cardiovascular Exam: Present: regular rate, normal rhythm, normal heart sounds. Absent: systolic murmur, diastolic murmur, rubs, gallop, clicks GI/Abdominal exam: Present: soft, normal bowel sounds. Absent: distended, tenderness, guarding, rebound, rigid Extremities exam: Present: normal inspection, full ROM, normal capillary refill. Absent: tenderness, pedal edema, joint swelling, calf tenderness Back exam: Present: normal inspection Neurological exam: Present: alert, oriented X3, CN II-XII intact Psychiatric exam: Present: normal affect, normal mood Skin exam: Present: warm, dry, intact, normal color. Absent: rash Course Vital Signs 06/11/22 06/11/22 11:02 15:28 Temperature 99.1 F Pulse Rate 88 69 Respiratory 16 16 Rate Blood Pressure 109/72 101/64 O2 Sat by Pulse 100 96 Oximetry Medical Decision Making - Medical Decision Making Upon arrival patient was placed in room 30. A thorough history and physical exam was performed. IV access was established and laboratory studies are conducted. Hemoglobin 12.7. Beta Quant is 3702. Urinalysis demonstrates large blood. Patient is O+. Ultrasound demonstrates no intrauterine . It is equally mass within the left ovary measuring 3 cm suggestive of a cyst. Additional complex cystic mass measuring 2.1 x 2.4 cm within the left ovary. Differential diagnosis includes missed or ectopic . In the setting with an elevated beta Quant with undetermined location I did speak with Dr. Elizalde. She recommends methotrexate at this time. I did discuss this with the patient who was agreeable to treatment. Patient will be discharged home. She is expected to have some bleeding. She is instructed to return to the hospital should she have uncontrolled pain or heavy bleeding. She needs to call tomorrow to make an appointment with Dr. Elizalde. Dr. Elizalde wants to see the patient on Wednesday for repeat labs. She is instructed of the critical nature of needing repeat laboratory studies and seeing the [facility] on Wednesday. Patient discharged home in stable condition - Lab Data Result diagrams: 06/11/22 11:39 06/11/22 11:39 Lab Results 06/11/22 06/11/22 06/11/22 Range/Units 11:39 11:39 11:39 WBC 10.0 (3.8-10.6) k/uL RBC 4.21 (3.80-5.40) m/uL Hgb 12.7 (11.4-16.0) gm/dL Hct 38.1 (34.0-46.0) % MCV 90.4 (80.0-100.0) fL MCH 30.2 (25.0-35.0) pg MCHC 33.5 (31.0-37.0) g/dL RDW 13.0 (11.5-15.5) % Plt Count 332 (150-450) k/uL MPV 7.2 Neutrophils % 72 % Lymphocytes % 19 % Monocytes % 5 % Eosinophils % 1 % Basophils % 0 % Neutrophils # 7.2 (1.3-7.7) k/uL Lymphocytes # 1.9 (1.0-4.8) k/uL Monocytes # 0.5 (0-1.0) k/uL Eosinophils # 0.1 (0-0.7) k/uL Basophils # 0.0 (0-0.2) k/uL Sodium 138 (137-145) mmol/L Potassium 4.1 (3.5-5.1) mmol/L Chloride 105 (98-107) mmol/L Carbon Dioxide 25 (22-30) mmol/L Anion Gap 8 mmol/L BUN 8 (7-17) mg/dL Creatinine 0.57 (0.52-1.04) mg/dL Est GFR (CKD-EPI)AfAm >90 (>60 ml/min/1.73 sqM) Est GFR (CKD-EPI)NonAf >90 (>60 ml/min/1.73 sqM) Glucose 86 (74-99) mg/dL Calcium 9.2 (8.4-10.2) mg/dL Total Bilirubin 0.4 (0.2-1.3) mg/dL AST 44 H (14-36) U/L ALT 53 H (4-34) U/L Alkaline Phosphatase 50 (38-126) U/L Total Protein 7.2 (6.3-8.2) g/dL Albumin 4.5 (3.5-5.0) g/dL HCG, Quant 3702.4 mIU/mL Urine Color Yellow Urine Appearance Cloudy H (Clear) Urine pH 8.0 (5.0-8.0) Ur Specific [place] 1.023 (1.001-1.035) Urine Protein Trace H (Negative) Urine Glucose (UA) Negative (Negative) Urine Ketones Negative (Negative) Urine Blood Large H (Negative) Urine Nitrite Negative (Negative) Urine Bilirubin Negative (Negative) Urine Urobilinogen <2.0 (<2.0) mg/dL Ur Leukocyte Esterase Moderate H (Negative) Urine RBC <1 (0-5) /hpf Urine WBC 16 H (0-5) /hpf Ur Squamous Epith Cells 16 H (0-4) /hpf Urine Bacteria Rare H (None) /hpf Urine Mucus Rare H (None) /hpf Blood Type Blood Type Recheck Bld Type Recheck Status Antibody Screen Spec Expiration Date 06/11/22 Range/Units 11:48 WBC (3.8-10.6) k/uL RBC (3.80-5.40) m/uL Hgb (11.4-16.0) gm/dL Hct (34.0-46.0) % MCV (80.0-100.0) fL MCH (25.0-35.0) pg MCHC (31.0-37.0) g/dL RDW (11.5-15.5) % Plt Count (150-450) k/uL MPV Neutrophils % % Lymphocytes % % Monocytes % % Eosinophils % % Basophils % % Neutrophils # (1.3-7.7) k/uL Lymphocytes # (1.0-4.8) k/uL Monocytes # (0-1.0) k/uL Eosinophils # (0-0.7) k/uL Basophils # (0-0.2) k/uL Sodium (137-145) mmol/L Potassium (3.5-5.1) mmol/L Chloride (98-107) mmol/L Carbon Dioxide (22-30) mmol/L Anion Gap mmol/L BUN (7-17) mg/dL Creatinine (0.52-1.04) mg/dL Est GFR (CKD-EPI)AfAm (>60 ml/min/1.73 sqM) Est GFR (CKD-EPI)NonAf (>60 ml/min/1.73 sqM) Glucose (74-99) mg/dL Calcium (8.4-10.2) mg/dL Total Bilirubin (0.2-1.3) mg/dL AST (14-36) U/L ALT (4-34) U/L Alkaline Phosphatase (38-126) U/L Total Protein (6.3-8.2) g/dL Albumin (3.5-5.0) g/dL HCG, Quant mIU/mL Urine Color Urine Appearance (Clear) Urine pH (5.0-8.0) Ur Specific [place] (1.001-1.035) Urine Protein (Negative) Urine Glucose (UA) (Negative) Urine Ketones (Negative) Urine Blood (Negative) Urine Nitrite (Negative) Urine Bilirubin (Negative) Urine Urobilinogen (<2.0) mg/dL Ur Leukocyte Esterase (Negative) Urine RBC (0-5) /hpf Urine WBC (0-5) /hpf Ur Squamous Epith Cells (0-4) /hpf Urine Bacteria (None) /hpf Urine Mucus (None) /hpf Blood Type O Positive Blood Type Recheck O Pos Bld Type Recheck Status No Antibody Screen NEGATIVE Spec Expiration Date 06/14/2022 - 2347 Critical Care Time Critical Care Time: Yes Critical Care Time: 32 minutes Disposition Clinical Impression: of unknown anatomic location, Abdominal cramping Disposition: HOME SELF-CARE Condition: Stable Instructions (If sedation given, give patient instructions): Methotrexate (By injection), Ectopic (DC) Additional Instructions: The shot that you received today will make you have vaginal bleeding. You may take Motrin and Tylenol for any pain. If your bleeding is significant or you have uncontrolled pain, return to the emergency room. Please call Dr. Hastings's office tomorrow. You need an appointment for Wednesday so they can repeat blood work and do an exam. Is patient prescribed a controlled substance at d/c from ED?: No Referrals: Marcela Hastings MD [STAFF PHYSICIAN] - 1-2 days Time of Disposition: 14:55
[2022-06-11 15:31] VITALS: BP 101/64; PULSE 69
== END 2022-06-11 15:28 | disposition home or self-care (01) ==
LOC: EC 10:25
DX: O00.90 Unspecified ectopic pregnancy without intrauterine pregnancy (principal); F41.9 Anxiety disorder, unspecified; F32.A Depression, unspecified; F17.200 Nicotine dependence, unspecified, uncomplicated; Z88.0 Allergy status to penicillin; Z3A.01 Less than 8 weeks gestation of pregnancy; Z91.041 Radiographic dye allergy status
CPT/HCPCS: 36415; 86900; 86901; 80053; 85025; 86850; 81001; 84702; 87086; 76801; 76817; 99285; 96372; J9260

== ENCOUNTER → 2022-06-17 | Outpatient (CLI) | payer BC, MEDICAID ==
[2022-06-17 22:36] LABS: HCT 34.6 % (37.2-46.3); MCH 28.8 pg (27.0-32.0); MCHC 31.8 g/dL (32.0-37.0); MCV 90.6 fL (80.0-97.0); Mean Platelet Volume 8.9 fL (9.5-12.2); NRBC Per 100 WBC 0 /100 WBCS (0.0-0.0); Platelet Count 361 X 10*3/uL (140-440); RBC 3.82 X 10*6/uL (4.10-5.20); WBC 8.04 X 10*3/uL (4.50-10.00)
== END | disposition home or self-care (01) ==
LOC: LABWHC1 15:35
PROVIDERS: ATTEND Obstetrics & Gynecology
DX: O00.90 Unspecified ectopic pregnancy without intrauterine pregnancy (principal); Z3A.00 Weeks of gestation of pregnancy not specified
CPT/HCPCS: 36415; 84702; 85027

== ENCOUNTER → 2022-06-22 | Outpatient (CLI) | payer BC, MEDICAID | END | disposition home or self-care (01) | LOC: LABWHC1 15:33 | PROVIDERS: ATTEND Obstetrics & Gynecology | DX: O00.109 Unspecified tubal pregnancy without intrauterine pregnancy (principal); Z3A.00 Weeks of gestation of pregnancy not specified | CPT/HCPCS: 36415; 84702 ==

== ENCOUNTER 2022-06-25 14:51 | Day surgery (SDC) | payer BC ==
[2022-06-25] MEDS ORDERED: ONDANSETRON 4 MG/2 ML VIAL ONE (15:34)
[2022-06-25] MEDS ORDERED: LIDOCAINE 1% (10MG/ML) FOR IV START INTRADERMA ONE (15:50)
[2022-06-25] MEDS ORDERED: NEOSTIGMINE 1 MG/ML 10 ML VIAL ONE (15:53)
[2022-06-25] MEDS ORDERED: LIDOCAINE 2% INJ 20 MG/ML (2 ML VIAL) ONE (15:53)
[2022-06-25] MEDS ORDERED: fentaNYL (PF) 50 MCG/ML 2 ML AMP ONE (15:53)
[2022-06-25] MEDS ORDERED: HYDROmorphone (PF) 1 MG/ML ONE (15:53)
[2022-06-25] MEDS ORDERED: SUCCINYLCHOLINE CHLORIDE 200 MG/10 ML VIAL IV ONE (15:53)
[2022-06-25] MEDS ORDERED: PHENYLEPHRINE-0.9% NACL SYG 1,000 MCG/10 ML SYRINGE ONE (15:53)
[2022-06-25] MEDS ORDERED: KETOROLAC 15 MG/ML 1 ML VIAL ONE (15:53)
[2022-06-25] MEDS ORDERED: GLYCOPYRROLATE 0.2 MG/ML 2 ML VIAL ONE (15:53)
[2022-06-25] MEDS ORDERED: ROCURONIUM 10 MG/ML (5 ML VIAL) IV ONE (15:53)
[2022-06-25] MEDS ORDERED: MIDAZOLAM 2 MG/2 ML VIAL ONE (15:53)
[2022-06-25] MEDS ORDERED: PROPOFOL 10 MG/ML 20 ML VIAL IV ONE (15:53)
[2022-06-25] MEDS ORDERED: SCOPOLAMINE 1 MG/72 HR PATCH TRANSDERM ONE (15:55)
[2022-06-25] MEDS ORDERED: DEXAMETHASONE SOD PHOSPHATE 4 MG/ML 1 ML VIAL IV ONE (15:55)
[2022-06-25] MEDS ORDERED: ONDANSETRON 4 MG/2 ML VIAL IVP ONE (15:55)
[2022-06-25] MEDS: LACTATED RINGERS 1,000 ML IV ONE ×2 (15:58→18:56)
[2022-06-25 16:06] LABS: HCT 38.5 % (34.0-46.0); HGB 13.2 gm/dL (11.4-16.0); MCH 30.6 pg (25.0-35.0); MCHC 34.2 g/dL (31.0-37.0); MCV 89.5 fL (80.0-100.0); Mean Platelet Volume 6.9; Platelet Count 357 k/uL (150-450); RBC 4.31 m/uL (3.80-5.40); RDW 12.5 % (11.5-15.5); WBC 8.1 k/uL (3.8-10.6)
[2022-06-25] MEDS ORDERED: BUPIVACAINE (PF) 0.25% 30 ML VIAL SQ ONE (16:31)
[2022-06-25] MEDS ORDERED: LACTATED RINGERS 1,000 ML IV ONE ×2 (16:35→18:06)
[2022-06-25] MEDS ORDERED: ONDANSETRON 4 MG/2 ML VIAL IVP PRN (17:03)
[2022-06-25] MEDS ORDERED: KETOROLAC 15 MG/ML 1 ML VIAL IVP PRN (17:03)
[2022-06-25] MEDS ORDERED: diphenhydrAMINE 50 MG/ML 1 ML VIAL IVP PRN (17:03)
[2022-06-25] MEDS ORDERED: SIMETHICONE 80 MG CHEWABLE PO PRN (17:03)
[2022-06-25] MEDS ORDERED: HYDROmorphone 0.5 MG/0.5 ML SYRINGE IVP ONE (17:45)
--- NOTE | 2022-06-25 18:08 | P.OP ---
Date of Procedure: 06/25/22 Preoperative Diagnosis: Partial Left Tubal Ectopic Postoperative Diagnosis: Same Procedure(s) Performed: Laparoscopic Left Salpingectomy, Removal of Ectopic Implants: None Anesthesia: LEENAA Surgeon: Kia Delaney Estimated Blood Loss (ml): 5 IV fluids (ml): 700 Urine output (ml): 10 Pathology: other (Portion of left fallopian tube with ectopic ) Condition: stable Disposition: floor Indications for Procedure: 27 year old with left ectopic s/p methotrexate on 06/11 for left ectopic seen on ultrasound after presenting to the ED for abdominal pain. Beta-HCG did not fall appropriately so pelvic ultrasound was repeated on 06/24 which showed 6w1d nonviable fetus in the left fallopian tube. The decision was made to move towards surgical treatment of the ectopic given failure of methotrexate. The risks of bleeding, infection, and damage to surroudning structures was discussed. The patient was informed that because she previously had her right fallopian tube removed and now we are removing the left she will not longer be able to achieve without IVF. The patient understands and desires to proceed with surgery. Operative Findings: Left fallopian tube enlarged with ectopic . Some adhesions from the left fimbriae to the left ovary. Left ovary otherwise normal appearing. Right ovary normal appearing. Portions of right fallopian tube still present. No bowel or organ injury present from abdominal entry upon abdominal survey. Description of Procedure: Patient was taken to the OR with IV fluid running and pneumatic compression stockings on both legs. General anesthesia was obtained without difficulty. The patient was placed in the dorsal lithotomy position with Tin-type stirrups with knees bent at 30 degree angles. The patient as prepared and draped. The bladder was emptied. A speculum was placed into the vagina. A uterine manipulator was introduced. A vertical skin incision was made at the umbilical fold. The Veress needle was introduced into the peritoneal cavity at a straight angle without difficulty. A saline drop test was performed to validate intr aperitoneal placement. The pneumoperitoneum was established with CO2 gas to a pressure of 15mmHg. A 5mm trocar was inserted into the abdomen. Intraabdominal placement was confirmed with the laparoscope. Intraabdominal survey revealed normal appearing liver, gallbladder, and spleen, and lack of any visceral or vascular injury. The pelvic anatomy was noted as above. A second 5mm trocar was inserted into the LLQ under direct laparoscopic visualization. The LigaSure bipolar device was introduced through the LLQ trocar and the a large portion of the left fallopian tube containing the ectopic was removed. A small portion of the fimbriated end of the left tube that had adhesions to the left ovary was left in place. The specimen was removed through the LLQ port site and sent for pathology. Good hemostasis was noted at the end of the case. All surgical instruments were removed fromt he abdomen. The two incisions were closed with 4-0 Monocryl and skin glue. The patient tolerated the procedure well. All instruments were removed from the abdomen and vagina, and all counts were correct times two. The patient was taken to the recovery room in stable condition.
[2022-06-25] MEDS: SENNOSIDES-DOCUSATE SODIUM 1 EACH TAB PO SCH (19:59)
[2022-06-25] MEDS ORDERED: LORazepam 1 MG TAB PO STA (21:16)
[2022-06-25] MEDS: NICOTINE 14MG/24HR PATCH TRANSDERM SCH (21:46)
[2022-06-26 04:15] VITALS: BP 96/62; PULSE 91; RESP 18; TEMP 98.9
[2022-06-26 09:28] LABS: Basophils # (A) 0.03 X 10*3/uL (0.00-0.10); Basophils % (A) 0.2 %; Eosinophils # (A) 0.02 X 10*3/uL (0.04-0.35); Eosinophils % (A) 0.2 %; HGB 11.7 g/dL (12.0-15.0); Immature Grans, Automated 0.4 %; Lymphocytes # (A) 1.75 X 10*3/uL (0.90-5.00); Lymphocytes % (A) 14.5 %; MCH 30.2 pg (27.0-32.0); MCHC 33.4 g/dL (32.0-37.0); MCV 90.4 fL (80.0-97.0); Mean Platelet Volume 9.1 fL (9.5-12.2); Monocytes # (A) 1.12 X 10*3/uL (0.20-1.00); Monocytes % (A) 9.3 %; NRBC Per 100 WBC 0 /100 WBCS (0.0-0.0); Neutrophils # (A) 9.11 X 10*3/uL (1.80-7.70); Neutrophils % (A) 75.4 %; Platelet Count 356 X 10*3/uL (140-440); RBC 3.87 X 10*6/uL (4.10-5.20); RDW 12.9 % (11.5-14.5); WBC 12.08 X 10*3/uL (4.50-10.00)
[2022-06-26] MEDS: SENNOSIDES-DOCUSATE SODIUM 1 EACH TAB PO SCH (09:48)
[2022-06-26] MEDS: NICOTINE 14MG/24HR PATCH TRANSDERM SCH (09:51)
--- NOTE | 2022-06-26 10:17 | P.PN ---
Subjective Progress Note Date: 06/26/22 Principal diagnosis: Ectopic s/p Laparoscopic Left Salpingectomy Ms. Moses is doing well this morning. She reports that pain has been well controlled with the medications (she has only needed one dose of toradol overnight). She is eating and drinking without nausea or vomiting. She is voiding without difficulty and passing flatus. She denies fevers, chills, chest pain, shortness of breath. She has light vaginal spotting. Objective - Vital Signs Vital signs: Vital Signs Temp 98.9 F 06/26/22 04:14 Pulse 91 06/26/22 04:14 Resp 18 06/26/22 04:14 BP 96/62 06/26/22 04:14 Pulse Ox 100 06/26/22 04:14 FiO2 Intake & Output 06/25/22 06/26/22 06/26/22 18:59 06:59 18:59 Intake Total 1060 600 Output Total 5 2 Balance 1055 598 Weight 45.7 kg Intake: IV 1000 Oral 60 600 Output: Urine 2 Estimated Blood Loss 5 Other: Voiding Method Toilet # Voids 1 - Constitutional General appearance: Present: average body habitus - Gastrointestinal Gastrointestinal Comment(s): Nontender, nondistended. Two laparoscopic incisions clean, dry, and intact. General gastrointestinal: Present: soft - Psychiatric Psychiatric: Present: A&O x's 3 - Labs CBC & Chem 7: 06/26/22 06:18 Labs: Abnormal Lab Results - Last 24 Hours (Table) 06/26/22 Range/Units 06:18 WBC 12.08 H (4.50-10.00) X 10*3/uL RBC 3.87 L (4.10-5.20) X 10*6/uL Hgb 11.7 L (12.0-15.0) g/dL Hct 35.0 L (37.2-46.3) % MPV 9.1 L (9.5-12.2) fL Immature Gran # 0.05 H (0.00-0.04) X 10*3/uL Neutrophils # 9.11 H (1.80-7.70) X 10*3/uL Monocytes # 1.12 H (0.20-1.00) X 10*3/uL Eosinophils # 0.02 L (0.04-0.35) X 10*3/uL Assessment and Plan Assessment: 27 y/o POD#1 s/p Laparoscopic Left Salpingectomy for Left Tubal Ectopic Plan: Patient meeting postoperative milestones appropriately. Desires discharge to home today. Will discharge at this time. Plan for f/u in the office in 2 weeks. Time with Patient: Less than 30
--- NOTE | 2022-06-26 10:25 | P.DS ---
Providers Date of admission: 06/25/2022 Expected date of discharge: 06/26/22 Attending physician: Kia Delaney MD Primary care physician: Stated None Hospital Course: Patient met all postoperative milestones appropriately. Patient's pain well controlled, ambulating, tolerating PO without nausea or vomiting, voiding without difficulty, and passing flatus. Assessment: 27 y.o POD#1 s/p Laparoscopic Left Salpingectomy for Left Tubal Ectopic Patient Condition at Discharge: Good Plan - Discharge Summary Discharge Rx Participant: No New Discharge Prescriptions: New Ibuprofen [Motrin] 800 mg PO Q8H PRN #30 tab PRN Reason: Moderate Pain (Scale 4 To 6) Acetaminophen Tab [Tylenol] 650 mg PO Q6H PRN #30 tab PRN Reason: Mild Pain (Scale 1 To 3) Discharge Medication List Acetaminophen Tab [Tylenol] 650 mg PO Q6H PRN #30 tab 06/26/22 [Rx] Ibuprofen [Motrin] 800 mg PO Q8H PRN #30 tab 06/26/22 [Rx] Follow up Appointment(s)/Referral(s): Kia Delaney MD [STAFF PHYSICIAN] - 2 Weeks Patient Instructions/Handouts: Ectopic (DC), Salpingectomy (DC) Activity/Diet/Wound Care/Special Instructions: No lifting heavier than 15 lbs for 6 weeks. Pelvic rest for 6 weeks. Activity as tolerated otherwise. Discharge Disposition: HOME SELF-CARE
[2022-06-26] MEDS ORDERED: ACETAMINOPHEN TAB 325 MG TAB PO PRN (17:05)
== END 2022-06-26 11:13 | disposition home or self-care (01) ==
LOC: OR 14:51 → 5NMEDONC 17:33 → OR 06-26 11:13
PROVIDERS: ATTEND Obstetrics & Gynecology
DX: O00.102 Left tubal pregnancy without intrauterine pregnancy (principal); Z3A.00 Weeks of gestation of pregnancy not specified
CPT/HCPCS: 93005; 86900; 86901; 85025; 85027; 86850; 59151; S4990; J1100; J2405; J1885; J1170

== ENCOUNTER 2022-06-28 18:38 | Emergency (ER) | payer BC ==
[2022-06-28] MEDS ORDERED: LORazepam 2 MG/ML INJ IV STA (21:09)
[2022-06-28] MEDS ORDERED: SODIUM CHLORIDE 0.9% 500 ML 500 ML IV STA (21:09)
[2022-06-28] MEDS ORDERED: KETOROLAC 15 MG/ML 1 ML VIAL IVP STA (21:11)
--- NOTE | 2022-06-28 21:14 | ED ---
General Adult HPI - General Chief complaint: Extremity Problem,Nontraumatic Stated complaint: Shoulder Pain Time Seen by Provider: 06/28/22 20:50 Source: patient, RN notes reviewed, old records reviewed Mode of arrival: ambulatory Limitations: no limitations - History of Present Illness Initial comments: This is a nontoxic-appearing 27-year-old pleasant female that presents to the emergency room with complaints of shortness of breath and upper back pain. Patient states that she was in the hospital and had a tubal ligation for ectopic on June 25. She states that her symptoms started a couple of days ago. Someone told her that she may have a blood clot after surgery and is worried. She does not take any medication on a daily basis. She states that she does vape, denies cigarette smoking. States that she does get short of breath with exertion. Denies any cough. No fevers -: days(s) (2) Location: back (upper) Radiation: other (shoulders) Severity scale (1-10): 7 Quality: aching, constant Consistency: constant Improves with: immobilization Worsens with: movement (walking) Associated Symptoms: shortness of breath Treatments Prior to Arrival: none - Related Data Previous Rx's Medication Instructions Recorded Acetaminophen Tab [Tylenol] 650 mg PO Q6H PRN #30 tab 06/26/22 Ibuprofen [Motrin] 800 mg PO Q8H PRN #30 tab 06/26/22 Allergies Allergy/AdvReac Type Severity Reaction Status Date / Time Penicillins Allergy Swelling Verified 06/28/22 18:42 red dye Allergy Hallucinati Verified 06/28/22 18:42 ons Review of Systems ROS Statement: Those systems with pertinent positive or pertinent negative responses have been documented in the HPI. ROS Other: All systems not noted in ROS Statement are negative. Past Medical History Past Medical History: No Reported History History of Any Multi-Drug Resistant Organisms: None Reported Past Surgical History: No Surgical Hx Reported Additional Past Surgical History / Comment(s): pt just had a baby removed out of her tubes 1 week ago- 09/16/21 and one in Aug 2021 Past Anesthesia/Blood Transfusion Reactions: No Reported Reaction Additional Past Anesthesia/Blood Transfusion Reaction / Comment(s): no transf. hx Past Psychological History: Anxiety, Bipolar, Depression Smoking Status: Vaper Past Alcohol Use History: Abuse, Daily Past Drug Use History: None Reported - Past Family History Father Family Medical History: No Reported History General Exam Limitations: no limitations General appearance: alert, in no apparent distress Head exam: Present: atraumatic Eye exam: Absent: scleral icterus, conjunctival injection, periorbital swelling Neck exam: Present: full ROM. Absent: tenderness, meningismus Respiratory exam: Present: normal lung sounds bilaterally. Absent: respiratory distress, wheezes, rales, rhonchi, stridor, chest wall tenderness, accessory muscle use Cardiovascular Exam: Present: regular rate GI/Abdominal exam: Present: soft, tenderness (Tender at the incision sites, no evidence of drainage or erythema, surgical glue intact). Absent: distended, guarding, rebound, rigid Extremities exam: Present: normal inspection, full ROM, normal capillary refill. Absent: tenderness, pedal edema, joint swelling, calf tenderness Back exam: Present: normal inspection, full ROM. Absent: tenderness, CVA tenderness (R), CVA tenderness (L), muscle spasm, paraspinal tenderness, vertebral tenderness, rash noted Neurological exam: Present: alert, oriented X3 Psychiatric exam: Present: normal affect, normal mood, anxious Skin exam: Present: warm, dry, normal color. Absent: cyanosis, diaphoretic, petechiae, pallor Course Vital Signs 06/28/22 06/28/22 18:39 22:57 Temperature 98.6 F 98.8 F Pulse Rate 93 73 Respiratory 20 16 Rate Blood Pressure 122/80 105/65 O2 Sat by Pulse 97 99 Oximetry EKG Findings - EKG Results: EKG: interpreted by ELVIRA, sinus rhythm (Ventricular rate 66, IL interval 0.132, QRS 0.104, QTC 0.378; normal axis; no ST elevation or T-wave inversion) Medical Decision Making - Medical Decision Making CBC is unremarkable. D-dimer is negative at 0.44. Magnesium is low at 1.5 she was given Mag-Ox. Troponin is negative at 0.012. EKG interpreted by mn shows sinus bradycardia at 66 no acute changes. Chest x-ray interpreted by me shows evidence of free under the diaphragm, which is consistent with patient's recent tubal ligation on June 25. No consolidation, normal cardiac size. Radiologist interpretation no cardiopulmonary disease. Pneumoperitoneum. Lung sounds are clear to auscultation. Vital signs are stable. Oxygen saturation 99% on room air. Patient will be discharged home to follow up with her doctor as scheduled. She is agreeable to this plan of care. Case discussed with Dr. Conde - Lab Data Result diagrams: 06/28/22 21:30 06/28/22 21:30 Lab Results 06/28/22 06/28/22 06/28/22 Range/Units 21:30 21:30 21:30 WBC 6.0 (3.8-10.6) k/uL RBC 3.94 (3.80-5.40) m/uL Hgb 12.1 (11.4-16.0) gm/dL Hct 35.7 (34.0-46.0) % MCV 90.5 (80.0-100.0) fL MCH 30.7 (25.0-35.0) pg MCHC 33.9 (31.0-37.0) g/dL RDW 12.8 (11.5-15.5) % Plt Count 340 (150-450) k/uL MPV 7.2 Neutrophils % 57 % Lymphocytes % 32 % Monocytes % 7 % Eosinophils % 3 % Basophils % 1 % Neutrophils # 3.4 (1.3-7.7) k/uL Lymphocytes # 1.9 (1.0-4.8) k/uL Monocytes # 0.4 (0-1.0) k/uL Eosinophils # 0.2 (0-0.7) k/uL Basophils # 0.0 (0-0.2) k/uL PT 12.0 (9.0-12.0) sec INR 1.2 H (<1.2) APTT 27.1 (22.0-30.0) sec D-Dimer 0.44 (<0.60) mg/L FEU Sodium 138 (137-145) mmol/L Potassium 3.9 (3.5-5.1) mmol/L Chloride 106 (98-107) mmol/L Carbon Dioxide 25 (22-30) mmol/L Anion Gap 7 mmol/L BUN 10 (7-17) mg/dL Creatinine 0.51 L (0.52-1.04) mg/dL Est GFR (CKD-EPI)AfAm >90 (>60 ml/min/1.73 sqM) Est GFR (CKD-EPI)NonAf >90 (>60 ml/min/1.73 sqM) Glucose 116 H (74-99) mg/dL Plasma Lactic Acid Edward (0.7-2.0) mmol/L Calcium 9.1 (8.4-10.2) mg/dL Magnesium 1.5 L (1.6-2.3) mg/dL Total Bilirubin <0.1 L (0.2-1.3) mg/dL AST 22 (14-36) U/L ALT 22 (4-34) U/L Alkaline Phosphatase 47 (38-126) U/L Troponin I (0.000-0.034) ng/mL Total Protein 6.7 (6.3-8.2) g/dL Albumin 3.9 (3.5-5.0) g/dL 06/28/22 06/28/22 Range/Units 21:30 21:30 WBC (3.8-10.6) k/uL RBC (3.80-5.40) m/uL Hgb (11.4-16.0) gm/dL Hct (34.0-46.0) % MCV (80.0-100.0) fL MCH (25.0-35.0) pg MCHC (31.0-37.0) g/dL RDW (11.5-15.5) % Plt Count (150-450) k/uL MPV Neutrophils % % Lymphocytes % % Monocytes % % Eosinophils % % Basophils % % Neutrophils # (1.3-7.7) k/uL Lymphocytes # (1.0-4.8) k/uL Monocytes # (0-1.0) k/uL Eosinophils # (0-0.7) k/uL Basophils # (0-0.2) k/uL PT (9.0-12.0) sec INR (<1.2) APTT (22.0-30.0) sec D-Dimer (<0.60) mg/L FEU Sodium (137-145) mmol/L Potassium (3.5-5.1) mmol/L Chloride (98-107) mmol/L Carbon Dioxide (22-30) mmol/L Anion Gap mmol/L BUN (7-17) mg/dL Creatinine (0.52-1.04) mg/dL Est GFR (CKD-EPI)AfAm (>60 ml/min/1.73 sqM) Est GFR (CKD-EPI)NonAf (>60 ml/min/1.73 sqM) Glucose (74-99) mg/dL Plasma Lactic Acid Edward 1.2 (0.7-2.0) mmol/L Calcium (8.4-10.2) mg/dL Magnesium (1.6-2.3) mg/dL Total Bilirubin (0.2-1.3) mg/dL AST (14-36) U/L ALT (4-34) U/L Alkaline Phosphatase (38-126) U/L Troponin I <0.012 (0.000-0.034) ng/mL Total Protein (6.3-8.2) g/dL Albumin (3.5-5.0) g/dL Disposition Clinical Impression: Shortness of breath Disposition: HOME SELF-CARE Condition: Good Instructions (If sedation given, give patient instructions): Shortness of Breath (ED) Additional Instructions: Walking is good exercise and may help your body to heal. Air in your abdomen usually resolves within 7 days of surgery. Do not lift anything heavy until cleared by your surgeon. Return to the emergency room with any new or concerning symptoms especially worsening shortness of breath or fevers. Is patient prescribed a controlled substance at d/c from ED?: No Referrals: None,Stated [Primary Care Provider] - 1-2 days Time of Disposition: 22:22
[2022-06-28 21:36] LABS: Basophils % (A) 1 %; Eosinophils # (A) 0.2 k/uL (0-0.7); Eosinophils % (A) 3 %; HCT 35.7 % (34.0-46.0); HGB 12.1 gm/dL (11.4-16.0); Lymphocytes # (A) 1.9 k/uL (1.0-4.8); Lymphocytes % (A) 32 %; MCH 30.7 pg (25.0-35.0); MCHC 33.9 g/dL (31.0-37.0); MCV 90.5 fL (80.0-100.0); Mean Platelet Volume 7.2; Monocytes # (A) 0.4 k/uL (0-1.0); Monocytes % (A) 7 %; Neutrophils # (A) 3.4 k/uL (1.3-7.7); Neutrophils % (A) 57 %; Platelet Count 340 k/uL (150-450); RBC 3.94 m/uL (3.80-5.40); RDW 12.8 % (11.5-15.5)
[2022-06-28 21:47] LABS: ALT 22 U/L (4-34); AST 22 U/L (14-36); African American GFR (CKD) >90 (>60 ml/min/1.73 sqM); Albumin 3.9 g/dL (3.5-5.0); Alkaline Phosphatase 47 U/L (38-126); Anion Gap 7 mmol/L; Blood Urea Nitrogen 10 mg/dL (7-17); Calcium 9.1 mg/dL (8.4-10.2); Carbon Dioxide 25 mmol/L (22-30); Chloride 106 mmol/L (98-107); Glucose 116 mg/dL (74-99); Magnesium 1.5 mg/dL (1.6-2.3); Non-African American GFR(CKD) >90 (>60 ml/min/1.73 sqM); Potassium 3.9 mmol/L (3.5-5.1); Sodium 138 mmol/L (137-145); Total Bilirubin <0.1 mg/dL (0.2-1.3); Total Protein 6.7 g/dL (6.3-8.2)
[2022-06-28 21:51] LABS: INR 1.2 (<1.2); Partial Thromboplastin Time 27.1 sec (22.0-30.0)
[2022-06-28] MEDS ORDERED: MAGNESIUM OXIDE 400 MG TAB PO STA (22:07)
--- NOTE | 2022-06-28 22:15 | XR ---
EXAMINATION TYPE: XR chest 2V DATE OF EXAM: 06/28/2022 COMPARISON: NONE HISTORY: Shoulder pain TECHNIQUE: 2 views FINDINGS: Heart and mediastinum are normal. Lungs are clear. Diaphragm is normal. Bony thorax is inta ct. There is free air under the diaphragm IMPRESSION: No cardiopulmonary disease. There is pneumoperitoneum. Exam was discussed with emergency room attending staff at 10:15 PM.
[2022-06-28 23:02] VITALS: BP 105/65; PULSE 73; RESP 16; TEMP 98.8
== END 2022-06-28 22:58 | disposition home or self-care (01) ==
LOC: EC 18:38
DX: R06.02 Shortness of breath (principal); F41.9 Anxiety disorder, unspecified; F31.9 Bipolar disorder, unspecified; F17.290 Nicotine dependence, other tobacco product, uncomplicated; Z88.0 Allergy status to penicillin
CPT/HCPCS: 36415; 93005; 85379; 80053; 83605; 83735; 84484; 85025; 85610; 85730; 71046; 99284; 96374; 96375; 96361; J2060; J1885

== ENCOUNTER 2022-08-28 07:35 | Emergency (ER) | payer OTHER ==
[2022-08-28 07:46] VITALS: RESP 18
--- NOTE | 2022-08-28 08:52 | ED ---
URI HPI - General Chief Complaint: Upper Respiratory Infection Stated Complaint: Covid Symptoms, dizziness Time Seen by Provider: 08/28/22 07:44 Source: patient, RN notes reviewed Mode of arrival: ambulatory Limitations: no limitations - History of Present Illness Initial Comments: 27-year-old female presents emergency Department chief complaint of fever cough congestion bodyaches. Patient states symptoms started yesterday. Patient states she does not feel short of breath no history of lung disease denies any known sick contacts denies current sore throat. Patient states that she has mild congestion and nonproductive cough. - Related Data Previous Rx's Medication Instructions Recorded Acetaminophen Tab [Tylenol] 650 mg PO Q6H PRN #30 tab 06/26/22 Ibuprofen [Motrin] 800 mg PO Q8H PRN #30 tab 06/26/22 Allergies Allergy/AdvReac Type Severity Reaction Status Date / Time Penicillins Allergy Swelling Verified 08/28/22 07:46 red dye Allergy Hallucinati Verified 08/28/22 07:46 ons Review of Systems ROS Statement: Those systems with pertinent positive or pertinent negative responses have been documented in the HPI. ROS Other: All systems not noted in ROS Statement are negative. Past Medical History Past Medical History: No Reported History History of Any Multi-Drug Resistant Organisms: None Reported Past Surgical History: No Surgical Hx Reported Additional Past Surgical History / Comment(s): pt just had a baby removed out of her tubes 1 week ago- 09/16/21 and one in Aug 2021 Past Anesthesia/Blood Transfusion Reactions: No Reported Reaction Additional Past Anesthesia/Blood Transfusion Reaction / Comment(s): no transf. hx Past Psychological History: Anxiety, Bipolar, Depression Smoking Status: Vaper Past Alcohol Use History: Abuse, Daily Past Drug Use History: None Reported - Past Family History Father Family Medical History: No Reported History General Exam Limitations: no limitations General appearance: alert, in no apparent distress Head exam: Present: atraumatic, normocephalic, normal inspection Eye exam: Present: normal appearance, PERRL, EOMI. Absent: scleral icterus, conjunctival injection, periorbital swelling ENT exam: Present: normal exam, normal oropharynx, mucous membranes moist Neck exam: Present: normal inspection, full ROM. Absent: tenderness, meningismus, lymphadenopathy Respiratory exam: Present: normal lung sounds bilaterally. Absent: respiratory distress, wheezes, rales, rhonchi, stridor Cardiovascular Exam: Present: regular rate, normal rhythm, normal heart sounds. Absent: systolic murmur, diastolic murmur, rubs, gallop, clicks Course Vital Signs 08/28/22 07:44 Temperature 99.4 F Pulse Rate 99 Respiratory 18 Rate Blood Pressure 102/69 O2 Sat by Pulse 98 Oximetry Medical Decision Making - Medical Decision Making Was pt. sent in by a medical professional or institution (TIGRE Weeks, [employer]DING DECORATOR, urgent care, hospital, or prison...) When possible be specific @ -No Did you speak to anyone other than the patient for history (EMS, parent, family, police, friend...)? What history was obtained from this source @ -No Did you review nursing and triage notes (agree or disagree)? Why? @ -I reviewed and agree with nursing and triage notes Were old charts reviewed (outside hosp., previous admission, EMS record, old EKG, old radiological studies, urgent care reports/EKG's, prison records)? Report findings @ -No old charts were reviewed Differential Diagnosis (chest pain, altered mental status, abdominal pain women, abdominal pain men, vaginal bleeding, weakness, fever, dyspnea, syncope, headache, dizziness, GI bleed, back pain, seizure, CVA, palpatations, mental health)? @ -Influenza, RSV, URI, COVID-19, this list is not on close EKG interpreted by me (3pts min.). @ -None X-rays interpreted by me (1pt min.). @ -None done CT interpreted by me (1pt min.). @ -None done U/S interpreted by me (1pt. min.). @ -None done What testing was considered but not performed or refused? (CT, X-rays, U/S, labs)? Why? @ -None What meds were considered but not given or refused? Why? @ -None Did you discuss the management of the patient with other professionals (professionals i.e. TIGRE Weeks, WEDDING DECORATOR, lab, RT, psych nurse, social service assistant, medical accountant, teacher, police booking officer, director of casework department)? Give summary @ -No Was smoking cessation discussed for >3mins.? @ -No Was critical care preformed (if so, how long)? @ -No Were there social determinants of health that impacted care today? How? (Homelessness, low income, unemployed, alcoholism, drug addiction, transportation, low edu. Level, literacy, decrease access to med. care, shelter, rehab)? @ -No Was there de-escalation of care discussed even if they declined (Discuss DNR or withdrawal of care, Hospice)? DNR status @ -No What co-morbidities impacted this encounter? (DM, HTN, Smoking, COPD, CAD, Cancer, CVA, ARF, Chemo, Hep., AIDS, mental health diagnosis, sleep apnea, morbid obesity)? @ -None Was patient admitted / discharged? Hospital course, mention meds given and route, prescriptions, significant lab abnormalities, going to OR and other pertinent info. @ -Patient is discharged, patient is positive for COVID-19 Undiagnosed new problem with uncertain prognosis? @ -No Drug Therapy requiring intensive monitoring for toxicity (Heparin, Nitro, Insulin, Cardizem)? @ -No Were any procedures done? @ -No Diagnosis/symptom? @ -[COVID-19 Acute, or Chronic, or Acute on Chronic? @ -Acute Uncomplicated (without systemic symptoms) or Complicated (systemic symptoms)? @ -Uncomplicated Side effects of treatment? @ -No Exacerbation, Progression, or Severe Exacerbation? @ -No Poses a threat to life or bodily function? How? (Chest pain, [place], [place], pneumonia, PE, COPD, DKA, ARF, appy, cholecystitis, CVA, Diverticulitis, Homicidal, Suicidal, threat to staff... and all critical care pts) @ -No - Lab Data Lab Results 08/28/22 Range/Units 07:55 Influenza Type A (PCR) Not Detected (Not Detectd) Influenza Type B (PCR) Not Detected (Not Detectd) RSV (PCR) Not Detected (Not Detectd) SARS-CoV-2 (PCR) Detected A (Not Detectd) Disposition Clinical Impression: COVID-19 Disposition: HOME SELF-CARE Condition: Stable Instructions (If sedation given, give patient instructions): COVID-19 (Coronavirus Disease 2019) (ED) Additional Instructions: Please return to the Emergency Department if symptoms worsen or any other concerns. Is patient prescribed a controlled substance at d/c from ED?: No Referrals: Hazel Williamson DO [Primary Care Provider] - 1-2 days Time of Disposition: 09:14
[2022-08-28 09:34] VITALS: BP 111/68; PULSE 89; TEMP 100.1
== END 2022-08-28 09:30 | disposition home or self-care (01) ==
LOC: EC 07:35
DX: U07.1 COVID-19 (principal); F41.9 Anxiety disorder, unspecified; F31.9 Bipolar disorder, unspecified; F17.290 Nicotine dependence, other tobacco product, uncomplicated; Z88.0 Allergy status to penicillin; Z91.041 Radiographic dye allergy status
CPT/HCPCS: 87636; 99284

== ENCOUNTER 2022-12-30 16:40 | Emergency (ER) | payer BC, OTHER ==
[2022-12-30 17:17] VITALS: BP 131/90; PULSE 84; RESP 16; TEMP 98.3
--- NOTE | 2022-12-30 17:31 | ED ---
General Adult HPI - General Source: patient Mode of arrival: ambulatory Limitations: no limitations <Brenda Howard - Last Filed: 12/30/22 17:28> - General Source: RN notes reviewed, old records reviewed - History of Present Illness -: unknown Radiation: non-radiation (Nonspecific complaints) Severity scale (1-10): 0 Consistency: intermittent Improves with: none Worsens with: none Associated Symptoms: denies other symptoms <Luis Callaway - Last Filed: 01/02/23 14:55> - General Chief complaint: Recheck/Abnormal Lab/Rx Stated complaint: poss preg/wants preg test - History of Present Illness Initial comments: 27-year-old female presents emergency Department for test. Patient states that she was seen at her primary care physician earlier today and had a positive urine test. Patient states that she has had her fallopian tubes removed. She otherwise states she is not feeling well. She reports nausea and mild headache. She denies fever, chills, vaginal bleeding, urinary frequency, dysuria, abdominal pain. (Brenda Howard) This is a 27-year-old female presents to the emergency department for evaluation test today. I'm patient states that she did have a positive test earlier today and history of fallopian tube removal. Patient is concern for positive test currently and would like to verify if her outpatient test was false or states that she cannot believe that she is and she has had a fallopian tubes removed (Luis Callaway) - Related Data Previous Rx's Medication Instructions Recorded Acetaminophen Tab [Tylenol] 650 mg PO Q6H PRN #30 tab 06/26/22 Ibuprofen [Motrin] 800 mg PO Q8H PRN #30 tab 06/26/22 Albuterol Sulfate [Albuterol 1 puff PO Q4-6H PRN #8.5 gm 08/30/22 Sulfate Hfa] Cyclobenzaprine [Flexeril] 5 mg PO TID PRN #15 tablet 08/30/22 LORazepam [Ativan] 0.5 mg PO DAILY PRN 3 Days #3 tab 08/30/22 Allergies Allergy/AdvReac Type Severity Reaction Status Date / Time Penicillins Allergy Swelling Verified 12/30/22 17:18 red dye Allergy Hallucinati Verified 12/30/22 17:18 ons Review of Systems ROS Other: All systems not noted in ROS Statement are negative. <Brenda Howard - Last Filed: 12/30/22 17:28> ROS Other: All systems not noted in ROS Statement are negative. <Luis Callaway - Last Filed: 01/02/23 14:55> ROS Statement: Those systems with pertinent positive or pertinent negative responses have been documented in the HPI. Past Medical History Past Medical History: No Reported History History of Any Multi-Drug Resistant Organisms: None Reported Past Surgical History: No Surgical Hx Reported Additional Past Surgical History / Comment(s): pt just had a baby removed out of her tubes 1 week ago- 09/16/21 and one in Aug 2021 Past Anesthesia/Blood Transfusion Reactions: No Reported Reaction Additional Past Anesthesia/Blood Transfusion Reaction / Comment(s): no transf. hx Past Psychological History: Anxiety, Bipolar, Depression Smoking Status: Vaper Past Alcohol Use History: Abuse, Daily Past Drug Use History: None Reported - Past Family History Father Family Medical History: No Reported History <LeeBrenda - Last Filed: 12/30/22 17:28> General Exam Limitations: no limitations <FidenciolizaBrenda reyna - Last Filed: 12/30/22 17:28> Limitations: no limitations General appearance: alert, in no apparent distress Head exam: Present: atraumatic, normocephalic, normal inspection Eye exam: Present: normal appearance, PERRL, EOMI. Absent: scleral icterus, conjunctival injection, periorbital swelling ENT exam: Present: normal exam, mucous membranes moist Neck exam: Present: normal inspection. Absent: tenderness, meningismus, lymphadenopathy Respiratory exam: Present: normal lung sounds bilaterally. Absent: respiratory distress, wheezes, rales, rhonchi, stridor Cardiovascular Exam: Present: regular rate, normal rhythm, normal heart sounds. Absent: systolic murmur, diastolic murmur, rubs, gallop, clicks GI/Abdominal exam: Present: soft, normal bowel sounds. Absent: distended, tenderness, guarding, rebound, rigid Extremities exam: Present: normal inspection, full ROM, normal capillary refill. Absent: tenderness, pedal edema, joint swelling, calf tenderness Back exam: Present: normal inspection Neurological exam: Present: alert, oriented X3, CN II-XII intact Psychiatric exam: Present: normal affect, normal mood Skin exam: Present: warm, dry, intact, normal color. Absent: rash <Luis Callaway - Last Filed: 01/02/23 14:55> - General Exam Comments Initial Comments: Visual Physical Exam Vital signs reviewed General: Well-appearing, nontoxic, no acute distress. Head: Normocephalic, atraumatic Eyes: PERRLA, EOMI ENT: Airway patent Chest: Nonlabored breathing Skin: No visual rash, normal skin tone Neuro: Alert and oriented 3 Musculoskeletal: No gross abnormalities (Brenda Howard) Course <Luis Callaway - Last Filed: 01/02/23 14:55> Vital Signs 12/30/22 17:14 Temperature 98.3 F Pulse Rate 84 Respiratory 16 Rate Blood Pressure 131/90 O2 Sat by Pulse 100 Oximetry - Reevaluation(s) Reevaluation #1: 12/30/22 22:51 Medical record is reviewed (Luis Callaway) Reevaluation #2: 12/30/22 22:51 Patient is no change in symptoms (Luis Callaway) Reevaluation #3: 12/30/22 22:51 Went to inform patient of results and she had eloped after finding a test was negative (Luis Callaway) Reevaluation #4: 12/30/22 22:51 Was pt. sent in by a medical professional or institution? @ -no Did you speak to anyone other than the patient for history? @ -no Did you review nursing and triage notes? @ -agree Were old charts reviewed? @ -no Differential Diagnosis? @ -prior EKG interpreted by me (3pts min.)? @ -no X-rays interpreted by me (1pt min.)? @ -no CT interpreted by me (1pt min.)? @ -no U/S interpreted by me (1pt. min.)? @ -no What testing was considered but not performed? (CT, X-rays, U/S, labs)? Why? @ -no What meds were considered but not given? Why? @ -no Did you discuss the management of the patient with other professionals? @ -no Did you reconcile home meds? @ -no Was smoking cessation discussed for >3mins.? @ -no Was critical care preformed (if so, how long)? @ -no Were there social determinants of health that impacted care today? How? (Homelessness, low income, unemployed, alcoholism, drug addiction, transp ortation, low edu. Level, literacy, decrease access to med. care, fdc, rehab)? @ -no Was there de-escalation of care discussed even if they declined? (Discuss DNR or withdrawal of care, Hospice)? @ -no What co-morbidities impacted this encounter? (DM, HTN, Smoking, COPD, CAD, Cancer, CVA, Hep., AIDS, mental health diagnosis, sleep apnea, morbid obesity)? @ -none Was patient admitted / discharged? @ -27 female for recheck test. test was negative here in the emergency department, patient informed of results and discharged Discharge Undiagnosed new problem with uncertain prognosis? @ -no Drug Therapy requiring intensive monitoring for toxicity (Heparin, Nitro, Insulin, Cardizem)? @ -no Were any procedures done? @ -no Diagnosis/symptom? @ -Normal exam Acute, or Chronic, or Acute on Chronic? @ -no Uncomplicated (without systemic symptoms) or Complicated (systemic symptoms)? @ -uncomplicated Side effects of treatment? @ -no Exacerbation, Progression, or Severe Exacerbation] @ -no Poses a threat to life or bodily function? @ -no (Luis Callaway) Medical Decision Making <Luis Callaway - Last Filed: 01/02/23 14:55> - Medical Decision Making 27 female to the emergency department for test. test was negative patient eloped prior to discharge instructions (Luis Callaway) - Lab Data Lab Results 12/30/22 12/30/22 Range/Units 17:18 17:18 Urine Color Colorless Urine Appearance Clear (Clear) Urine pH 6.5 (5.0-8.0) Ur Specific [place] 1.006 (1.001-1.035) Urine Protein Negative (Negative) Urine Glucose (UA) Negative (Negative) Urine Ketones Negative (Negative) Urine Blood Negative (Negative) Urine Nitrite Negative (Negative) Urine Bilirubin Negative (Negative) Urine Urobilinogen <2.0 (<2.0) mg/dL Ur Leukocyte Esterase Small H (Negative) Urine RBC 1 (0-5) /hpf Urine WBC 4 (0-5) /hpf Ur Squamous Epith Cells 7 H (0-4) /hpf Urine Bacteria Rare H (None) /hpf Urine HCG, Qual Not Detected (Not Detectd) Disposition <Brenda Howard - Last Filed: 12/30/22 17:28> Is patient prescribed a controlled substance at d/c from ED?: No Time of Disposition: 21:10 <Luis Callaway - Last Filed: 01/02/23 14:55> Clinical Impression: Normal exam Narrative: Patient left without discharge instructions (Luis Callaway) Disposition: HOME SELF-CARE Condition: Good Instructions (If sedation given, give patient instructions): Normal Exam (ED) Referrals: Hazel Williamson DO [Primary Care Provider] - 1-2 days
[2022-12-30 18:29] LABS: Appearance,Urine Clear (Clear); Bacteria,Urine Rare /hpf; Bilirubin,Urine Negative (Negative); Blood,Urine Negative (Negative); Color,Urine Colorless; Glucose,Urine (UA) Negative (Negative); Ketones,Urine Negative (Negative); Leukocyte Esterase,Urine Small (Negative); Nitrite,Urine Negative (Negative); PH, Urine 6.5 (5.0-8.0); Protein,Urine Negative (Negative); RBC,Urine 1 /hpf (0-5); Specific Gravity,Urine 1.006 (1.001-1.035); Squamous Epithelial Cell,Urine 7 /hpf (0-4); Urobilinogen,Urine <2.0 mg/dL (<2.0); WBC,Urine 4 /hpf (0-5)
== END 2022-12-30 21:21 | disposition home or self-care (01) ==
LOC: EC 16:40
DX: Z00.00 Encounter for general adult medical examination without abnormal findings (principal); F17.290 Nicotine dependence, other tobacco product, uncomplicated; Z86.59 Personal history of other mental and behavioral disorders; Z88.0 Allergy status to penicillin; Z91.041 Radiographic dye allergy status
CPT/HCPCS: 81001; 81025; 99283

== ENCOUNTER 2024-03-14 13:25 | Emergency (ER) | payer BC, OTHER | END 2024-03-14 16:25 | disposition left against medical advice (07) | LOC: EC 13:25 | CPT/HCPCS: 99499 ==